=== PATIENT | female | born 1950 | race Caucasian/White ===

== ENCOUNTER 2023-02-27 11:44 | Inpatient (IN) ==
[2023-02-27] MEDS ORDERED: SODIUM CHLORIDE 0.9% 1000ML 1,000 ML IV SCH (12:30)
--- NOTE | 2023-02-27 12:44 | XRay Report ---
XR chest 1V portable CLINICAL HISTORY: Sepsis. COMPARISON STUDY: Chest radiograph March 04, 2021. FINDINGS: Lung volumes are normal. Lungs are clear. There is no pneumothorax or pleural effusion. Car diac size is stable. Mediastinal contours are normal. There is no evidence for pulmonary edema. IMPRESSION: No acute cardiopulmonary findings. ACT 112: Negative or not required by law. Electronically signed by: Cb Adams M.D. 02/27/2023 12:43 PM
[2023-02-27 12:47] LABS: Appearance Urine Turbid (Clear); Bacteria Urine Automated 4+ (Negative); Bilirubin Urine Negative (Negative); Blood Urine 3+ (Negative); Color Urine Yellow; Epithelial Cell Urine Auto >30 /lpf (0-5); Glucose Urine UA 3+ (Negative); Ketones Urine 1+ (Negative); Leukocyte Esterase Urine 2+ (Negative); Nitrite Urine Positive (Negative); Protein Urine 1+ (Negative); Specific Gravity Urine 1.025 (1.000-1.030); Urobilinogen Urine Negative (Negative); WBC Urine Automated >30 /hpf (0-5)
[2023-02-27 12:55] LABS: Hematocrit (blood only) 38.3 % (37.0-47.0); Hemoglobin 12.7 g/dl (12.0-16.0); Mean Corpuscular Hemoglobin 29.5 pg (25.0-34.0); Mean Corpuscular Hgb Conc 33.2 g/dL (32.0-36.0); Mean Corpuscular Volume 89.1 fL (80.0-100.0); Mean Platelet Volume 10.4 fL (9.4-12.4); Platelet Count 216 K/uL (130-400); RDW Coefficient of Variation 13.5 % (11.5-14.5); RDW Standard Deviation 43.5 fL (36.4-46.3); White Blood Count 11.93 K/ul (4.8-10.8)
[2023-02-27] MEDS ORDERED: SODIUM CHLORIDE 0.9% 500 ML IV ONE (13:04)
[2023-02-27] MEDS ORDERED: cefTRIAXone SODIUM 1,000 MG in DEXTROSE 5% AD-VAN 50 ML IV STA (13:04)
[2023-02-27 13:06] LABS: Albumin Level 3.9 gm/dl (3.4-5.0); BUN Creatinine Ratio 26.8 (10-20); Bilirubin,Total 1.7 mg/dl (0.2-1.0); Calcium 9.4 mg/dl (8.6-10.3); Creatinine Clr Calc Pharmacy 43.9 ml/min; Est GFR (African American) 66.7 ml/min; Est GFR (Non-African American) 57.5 ml/min; Globulin 3.9 gm/dl (2.5-4.0); Potassium 3.6 mmol/L (3.5-5.1); Total Protein 7.8 gm/dl (6.0-8.3)
[2023-02-27 13:12] LABS: Troponin I High Sensitivity 36.6 pg/ml (0-14)
[2023-02-27 13:15] LABS: Basophils # (auto) 0.04 K/uL (0-0.2); Basophils % (auto) 0.3 %; Eosinophils # (auto) 0.01 K/uL (0-0.50); Eosinophils % (auto) 0.1 %; Immature Granulocytes # (auto) 0.05 K/uL (0.01-0.20); Immature Granulocytes % (auto) 0.4 %; Lymphocytes # (auto) 0.57 K/uL (1.2-3.4); Lymphocytes % (auto) 4.8 %; Monocytes # (auto) 0.41 K/uL (0.11-0.59); Monocytes % (auto) 3.4 %; Neutrophils # (auto) 10.85 K/uL (1.40-6.50)
[2023-02-27 13:21] LABS: Partial Thromboplastin Ratio 0.9; Partial Thromboplastin Time 25.7 Seconds (21.0-31.0); Prothrombin Time 10.9 Seconds (9.0-12.0)
--- NOTE | 2023-02-27 13:24 | Electrocardiogram Report ---
Test Reason : Blood Pressure : / mmHG Vent. Rate : 095 BPM Atrial Rate : 375 BPM P-R Int : 000 ms QRS Dur : 062 ms QT Int : 330 ms P-R-T Axes : 000 036 070 degrees QTc Int : 414 ms Poor data quality, interpretation may be adversely affected Sinus rhythm Nonspecific ST and T wave abnormality Abnormal ECG When compared with ECG of 04-MAR-2021 15:40, T wave amplitude has decreased in Inferior leads T wave inversion now evident in Lateral leads Confirmed by Raymon Wheeler ([id number]) on 02/27/2023 1:24:18 PM Referred By: Confirmed By:Raymon Wheeler
--- NOTE | 2023-02-27 13:57 | CT Scan Report ---
HEAD CT NONCONTRAST CT DOSE: 638.56 mGycm HISTORY: Altered mental status. Dementia. Urinary tract infections. TECHNIQUE: Multiaxial CT images of the head were performed without the use of intravenous contrast. A utomated exposure control was utilized for this study. A dose lowering technique was utilized adheri ng to the principles of ALARA. Comparison: None. Findings: The paranasal sinuses and mastoid air cells are clear. The calvarium and skull base are int act. There is no mass, hematoma, midline shift, acute infarct. White matter hypodensity is nonspecifi c but suggestive of microvascular ischemic change. The ventricles and sulci demonstrate mild age-rela kenia involutional changes. Mild motion artifact at the skull base/posterior fossa. Impression: No acute intracranial abnormality. Atrophy and microvascular ischemic changes. ACT 112: Negative or not required by law. Electronically signed by: Brien Bajwa M.D. 02/27/2023 1:56 PM
--- NOTE | 2023-02-27 14:58 | History & Physical Report ---
Date of Service February 27, 2023 Assessment & Plan (1) Infectious encephalopathy: (2) UTI (urinary tract infection): (3) T2DM (type 2 diabetes mellitus): (4) HTN (hypertension): (5) HLD (hyperlipidemia): (6) Dementia with behavioral disturbance: (7) CKD (chronic kidney disease), stage III: Plan This is a 72-year-old female who has significant past medical history of T2DM, HTN, HLD, CKD stage III and dementia who presents to ED secondary to mental status change and responsiveness x2 days. Patient has picture of infectious metabolic encephalopathy likely in setting of UTI. At this time she technically does not meet criteria for sepsis Metabolic infectious encephalopathy UTI Admit to PCU, once mental status improved could downgrade IV Rocephin Await blood and urine cultures IV fluid NSS plus KCl We will keep n.p.o. for now until mentation improves Dementia with behavioral disturbance Following neurology Discussed case with patient's PCP Dr. Green Worsening mental status in the last 4 months and currently undergoing further work-up and likely [facility] psych Dr. Green recommends MRI brain when patient able to tolerate Recently trialed Seroquel as outpatient and did not tolerate due to restlessness, per PCP patient tends to get agitation and restlessness in afternoon High risk for delirium Elevated troponin likely demand ischema in setting of infection will trend trops, repeat ecg consider echo if significant trop elevation T2DM Controlled on outpatient regimen, last A1c 7.07 February 2023 Hold Jardiance and glipizide Hypertension Controlled as outpatient on lisinopril, metoprolol and hydrochlorothiazide We will hold for now given cognition, once improves recommend resumption of home meds CKD stage III Baseline creatinine 1.0-1.1 Avoid nephrotoxic agents, renal function at baseline Monitor Gross hematuria Per discussion with Dr. Green currently undergoing work-up as outpatient due to hematuria noted on UTI Patient was to have a bladder renal ultrasound today as outpatient, but got canceled secondary to hospitalization We will consider ultrasound once encephalopathy resolves DVT prophylaxis: will do SCDS for now due to possible gross hematuria per PCP Dispo: PCU for now, pt DNR/DNI but given UTI, high risk for delirium suspect pt will require significant nursing assistance, can down grade to med/surg when able DNR/DNI PCP: Lyubov Green, discussed with PCP regarding pt hospitalization A total of 75 minutes was spent with greater than 50% of that time personally viewing all current laboratory work and diagnostic imaging studies obtained in the ED. Additionally, I was able to view the patients past medication reconciliation and history with direct visualization in the patients chart. Included in the time above, a portion of that time was spent assessing the patient while discussing and collaborating with specialists, if necessary, and making medical decision making on treatment plan. All of the above was collaborated with []. Please see addendum for further details. History of Present Illness Chief Complaint: Worsened altered mental status/unresponsivness x 2 days. Primary Care Provider: Lyubov Green MD This is a 72-year-old female who has significant past medical history of T2DM, HTN, HLD, CKD stage III and dementia who presents to ED secondary to mental status change and responsiveness x2 days. Patient's is at bedside. ROS unobtainable from patient due to current cognitive status. states recently traveled back from [place] as they were there for 4 months. Typically they go 4 months of the year. While in [place] he noted that she been having a shuffling gait and difficulty walking. She also has been having increase in falls. She had 1 fall in [place] where she injured the left frontal aspect of her forehead. She had a CT head done at that time which was negative. She has since followed up with Dr. Green her primary care doctor in clinic as well as neurology. brought her to ED today due to unable to arouse patient and unable to get her out of bed. He states she has been like this the past 2 to 3 days but he was eventually able to arouse her and get her out of bed.In ED patient was hemodynamically stable although slightly tachycardic. Lab work consistent with mild leukocytosis at 11.93 K, BUN 26, creatinine 0.97, glucose 117, lactate 2.0, total bilirubin 1.7, troponin 36.6 and procalcitonin 6.38. Her urinalysis is consistent with infection. Also noted is +[address] was negative for any acute changes but did reveal atrophy and microvascular is chemic change. Chest x-ray negative for any acute abnormality. She did receive IV fluid and IV ceftriaxone. Allergies Allergy/AdvReac Type Severity Reaction Status Date / Time metformin Allergy Unknown Verified 02/27/23 14:11 quetiapine [From Seroquel] AdvReac Intermediate agitation/r Verified 02/27/23 14:11 estlessness Home Medications Medication Instructions Recorded Confirmed Type aspirin 81 mg tablet,delayed 81 mg PO DAILY 02/27/23 02/27/23 History release atorvastatin 20 mg tablet 20 mg PO DAILY 02/27/23 02/27/23 History calcium citrate 250 mg 1 tab PO TID 02/27/23 02/27/23 History calcium-vitamin D3 5 mcg (200 unit) tablet cholecalciferol (vitamin D3) 25 25 mcg PO DAILY 02/27/23 02/27/23 History mcg (1,000 unit) tablet empagliflozin 10 mg tablet 10 mg PO DAILY 02/27/23 02/27/23 History ferrous sulfate 325 mg (65 mg 325 mg PO DAILY 02/27/23 02/27/23 History iron) tablet (iron) glipizide 5 mg tablet, extended 5 mg PO BID 02/27/23 02/27/23 History release 24 hr hydrochlorothiazide 12.5 mg capsule 12.5 mg PO DAILY 02/27/23 02/27/23 History lisinopril 40 mg tablet 40 mg PO DAILY 02/27/23 02/27/23 History metoprolol succinate 25 mg 25 mg PO DAILY 02/27/23 02/27/23 History tablet,extended release 24 hr sertraline 25 mg tablet 50 mg PO DAILY 02/27/23 02/27/23 History Past Med/Surg History Medical History CKD (chronic kidney disease), stage III Dementia with behavioral disturbance HLD (hyperlipidemia) HTN (hypertension) T2DM (type 2 diabetes mellitus) Surgical History (Updated 02/27/23 @ 14:12 by Kristen Yusuf PA-C) Hx of section Family History (Updated 02/27/23 @ 14:12 by Kristen Yusuf PA-C) Other Diabetes Hypertension Social History (Updated 02/27/23 @ 14:12 by Kristen Yusuf PA-C) Smoking Status: Never smoker Hx Alcohol Use: No Hx Substance Use: No marital status: Current Living Situation: Spouse Review of Systems Review of Systems: Unobtainable due to cognitive status Physical Exam Physical Exam: Constitutional: WD/WN, Chronically ill-appearing, female,Minimally arouses to verbal stimuli, vitals as above, NAD Head: Normocephalic, + contusion to L frontal forehead Eyes: PERRL, conjunctivae normal, anicteric sclerae ENMT: external ear and nose normal, oropharynx normal Significantly dry membranes Neck: trachea midline, no thyromegaly normal visual inspection Respiratory: normal respiratory effort, lungs clear to auscultation, no wheeze, rales, rhonchi. Normal insp/exp effort, no accessory muscle use Cardiovascular: RRR, no murmur, no edema Vessels: no JVD or carotid bruit Chest: normal inspection of chest Abdomen: normal bowel sounds, soft, nontender, no hepatosplenomegaly Musculoskeletal: no cyanosis or clubbing, extremities motor strength 5/5 Skin: no rashes, warm and dry normal turgor Neurologic: PERRL, EOMI, accommodation nl, no face palsy, no dysarthria CN's II-XI intact bilaterally and moves all extremities Psychiatric: Not alert or arousable, does around to tactile and verbal stimuli, euthymic affect Lymphatic: no cervical or axillary lymphadenopathy : deferred Results & Data Results & Data Vital Signs (Past 12 Hours) Vital Signs Temp Pulse Pulse Resp BP BP Pulse Ox 02/27/23 14:41 87 20 141/74 H 98 02/27/23 13:14 81 16 150/72 H 99 02/27/23 13:05 80 02/27/23 13:53 82 20 149/90 H 95 02/27/23 12:22 96 02/27/23 12:15 36.8 C 98 H 20 152/104 H 96 O2 Del Method 02/27/23 14:41 Room Air 02/27/23 13:14 Room Air 02/27/23 13:05 02/27/23 13:53 Room Air 02/27/23 12:22 Room Air 02/27/23 12:15 Room Air Diagnostic Findings Chest X-Ray 02/27/23 12:10 XR chest 1V portable CLINICAL HISTORY: Sepsis. COMPARISON STUDY: Chest radiograph March 04, 2021. FINDINGS: Lung volumes are normal. Lungs are clear. There is no pneumothorax or pleural effusion. Cardiac size is stable. Mediastinal contours are normal. There is no evidence for pulmonary edema. IMPRESSION: No acute cardiopulmonary findings. ACT 112: Negative or not required by law. Electronically signed by: Cb Adams M.D. 02/27/2023 12:[address] 02/27/23 13:[address] DOSE: 638.56 mGycm HISTORY: Altered mental status. Dementia. Urinary tract infections. TECHNIQUE: Multiaxial CT images of the head were performed without the use of intravenous contrast. Automated exposure control was utilized for this study. A dose lowering technique was utilized adhering to the principles of ALARA. Comparison: None. Findings: The paranasal sinuses and mastoid air cells are clear. The calvarium and skull base are intact. There is no mass, hematoma, midline shift, acute infarct. White matter hypodensity is nonspecific but suggestive of microvascular ischemic change. The ventricles and sulci demonstrate mild age-related involutional changes. Mild motion artifact at the skull base/posterior fossa. Impression: No acute intracranial abnormality. Atrophy and microvascular ischemic changes. ACT 112: Negative or not required by law. Electronically signed by: Brien Bajwa M.D. 02/27/2023 1:56 PM Medications Administered Medication List Sodium Chloride (Nss 1000ml) 1,000 mls @ 125 mls/hr IV .Q8H YASHIRA Stop: 02/27/23 20:29 Last Admin: 02/27/23 12:44 Dose: 125 mls/hr Documented By: TW Discontinued Medications Sodium Chloride (Nss) 500 mls @ 999 mls/hr IV .Q31M ONE Stop: 02/27/23 13:34 Last Infusion: 02/27/23 14:02 Dose: 0 mls/hr Documented By: Admin: 02/27/23 13:19 Dose: 999 mls/hr Documented By: TW Ceftriaxone Sodium 1,000 mg/ (Dextrose) 50 mls @ 100 mls/hr IV NOW STA Stop: 02/27/23 13:33 Last Infusion: 02/27/23 14:39 Dose: 0 mls/hr Documented By: Admin: 02/27/23 13:54 Dose: 100 mls/hr Documented By: TW ECG Rate (beats per minute): 95 Rhythm: normal sinus Additional Comments: significant artifact, viewed by me COVID-19 Results Results COVID-19 Adm Lab Results: RBC 4.30 M/uL (4.20-5.40) 02/27/23 WBC 11.93 K/ul (4.8-10.8) H 02/27/23 Hgb 12.7 g/dl (12.0-16.0) 02/27/23 Hct 38.3 % (37.0-47.0) 02/27/23 Plt Count 216 K/uL (130-400) 02/27/23 Neutrophils (%) (Auto) 91.0 % 02/27/23 Lymphocytes (%) (Auto) 4.8 % 02/27/23 Monocytes # (Auto) 0.41 K/uL (0.11-0.59) 02/27/23 Eosinophils # (Auto) 0.01 K/uL (0-0.50) 02/27/23 Immature Granulocyte % (Auto) 0.4 % 02/27/23 Neutrophils # (Auto) 10.85 K/uL (1.40-6.50) H 02/27/23 Lymphocytes # (Auto) 0.57 K/uL (1.2-3.4) L 02/27/23 Monocytes # (Auto) 0.41 K/uL (0.11-0.59) 02/27/23 Eosinophils # (Auto) 0.01 K/uL (0-0.50) 02/27/23 Basophils # (Auto) 0.04 K/uL (0-0.2) 02/27/23 Immature Granulocyte # (Auto) 0.05 K/uL (0.01-0.20) 3 Na 137 mmol/L (136-145) 02/27/23 K 3.6 mmol/L (3.5-5.1) 02/27/23 Cl 101 mmol/L (98-107) 02/27/23 CO2 26 mmol/L (21-32) 02/27/23 Anion Gap 10 (3-11) 02/27/23 BUN 26 mg/dl (6-23) H 02/27/23 Creatinine 0.97 mg/dl (0.6-1.2) 02/27/23 BUN/Creatinine Ratio 26.8 (10-20) H 02/27/23 Glucose Level 117 mg/dl (70-99(Fasting)) H 02/27/23 Ca 9.4 mg/dl (8.6-10.3) 02/27/23 Total Bilirubin 1.7 mg/dl (0.2-1.0) H 02/27/23 AST/SGOT 21 U/L (13-39) 02/27/23 ALT/SGPT 13 U/L (7-52) 02/27/23 Alkaline Phosphatase 66 U/L (34-104) 02/27/23 Total Protein 7.8 gm/dl (6.0-8.3) 02/27/23 Albumin 3.9 gm/dl (3.4-5.0) 02/27/23 Globulin 3.9 gm/dl (2.5-4.0) 02/27/23 Albumin/Globulin Ratio 1.0 (0.9-2) 02/27/23 Procalcitonin 6.38 ng/ml (0-0.5) H 02/27/23 PTT 25.7 Seconds (21.0-31.0) 02/27/23 INR 1.0 (0.9-1.1) 02/27/23 SARS-CoV-2, RNA, NAAT NEGATIVE (NEGATIVE) 02/27/23 ABG pH 7.46 (7.35-7.45) H 02/27/23 ABG pCO2 34 mmHg (35-46) L 02/27/23 ABG pO2 69 mmHg (80-95) L 02/27/23 ABG HCO3 24 mmol/L (19-24) 02/27/23 ABG O2 Saturation 95.3 % (90-95) H 02/27/23 ABG Base Excess 0.8 mEq/L (-9-1.8) 02/27/23 Chest X-Ray 02/27/23 Code Status & VTE Plan Code Status DNR/DNI VTE Prophylaxis Plan VTE Prophylaxis will be ordered: Yes Supervising Physician Co-Signing Physician Notes Pt was seen and examined. Agreed with Kristen CHADWICK exam, assessment and plan. 72-year-old female who has significant past medical history of T2DM, HTN, HLD, CKD stage III and dementia who presents to ED secondary to mental status change and lethargy. History obtained from at bedside. Pt was recently travel back to the [facility] from [place]. As per , Pt has been having a shuffling gait and difficulty walking that led to fall. She had a fall while in [place] where she injured the left frontal aspect of her forehead. said for the last 2 days pt has been very lethargy and unable to get her out of bed. In the ED, Lab shown WBC at 11.93 K, BUN 26, creatinine 0.97, glucose 117, lactate 2.0, total bilirubin 1.7, troponin 36.6 and procalcitonin 6.38 and UA positive for Leukocytes, Nitrite and bacteria. Received IV fluid and IV Ceftriaxone in the ER. Will continue IV abx with Ceftriaxone for now. Will follow urine and blood cx that was collected in the ER. Consider to get head MRI once mental status improves. Will get an ABC to r/o any CO2 retention. Continue monitor closely. MD Carolyne
[2023-02-27 15:48] LABS: Base Excess ABG 0.8 mEq/L (-9-1.8); HCO3 ABG 24 mmol/L (19-24); Oxygen Saturation ABG 95.3 % (90-95); PCO2 ABG 34 mmHg (35-46); PO2 ABG 69 mmHg (80-95); pH ABG 7.46 (7.35-7.45)
[2023-02-27 15:51] LABS: Allen Test Pos (Pos)
[2023-02-27] MEDS ORDERED: POLYETHYLENE (MIRALAX) 17 GM PACK PO PRN (16:45)
[2023-02-27] MEDS ORDERED: DEXTROSE 50% 50 ML SYRINGE IV PRN (16:45)
[2023-02-27] MEDS ORDERED: GLUCOSE 40% GEL 15 GM TUBE PO PRN (16:45)
[2023-02-27] MEDS ORDERED: MAGNESIUM HYDROXIDE SUSP 30 ML UDC PO PRN (16:45)
[2023-02-27] MEDS ORDERED: INSULIN ASPART PER UNIT CHARGE SC SCH (16:45)
[2023-02-27] MEDS ORDERED: GLUCAGON FOR INJ 1 MG VIAL SQ PRN (16:45)
[2023-02-27] MEDS ORDERED: ONDANSETRON INJ 2 MG/ML 2 ML VIAL IV PRN (16:45)
[2023-02-27] MEDS ORDERED: ACETAMINOPHEN 325 MG TAB PO PRN (16:45)
[2023-02-27] MEDS ORDERED: GLUCOSE 10 TAB/TUBE PO PRN (16:45)
[2023-02-27] MEDS ORDERED: ALUMINUM/MAGNESIUM SUSP 30 ML UDC PO PRN (16:45)
[2023-02-27] MEDS ORDERED: CARBOHYDRATES FOR HYPOGLYCEMIA PO PRN (16:45)
[2023-02-27] MEDS: NSS + 20MEQ KCL 20 MEQ/1,000 ML BAG IV SCH (17:02)
[2023-02-27] MEDS: ADVANCED PROBIOTIC 1250 MG CAPSULE PO SCH (17:06)
[2023-02-27] MEDS ORDERED: Nursing to Pharmacy Communication SCH (17:15)
[2023-02-27] MEDS: INSULIN ASPART PER UNIT CHARGE SC SCH (18:10)
--- NOTE | 2023-02-27 20:26 | Emergency Department Note ---
Impression & Plan Encephalopathy due to infection, UTI (urinary tract infection), Dementia ED Provider Note CHIEF COMPLAINT: AMS HISTORY OF PRESENT ILLNESS: This 72 yo female patient with past medical history of advanced dementia, chronic kidney disease, hyperlipidemia, hypertension and type 2 diabetes presents to the emergency department via ambulance for altered mental status. Patient's states over the last 2 days she has become increasingly somnolent and incontinent of urine, which is new. He is her primary caregiver and states that she is normally ambulatory and although needs to be directed, will eat and converse. The patient has not gotten out of bed in the last 2 days. He denies any falls or head injuries. He denies any blood thinners. REVIEW OF SYSTEMS: Unable to obtain a full review of systems secondary to patient's mental status ALLERGIES: Metformin, Seroquel MEDICATIONS: see below PMH: Advanced dementia, chronic kidney disease, hyperlipidemia, hypertension, type 2 diabetes SOCIAL HISTORY: see below DDx: Infection, dehydration, metabolic abnormality, hypo/hyperglycemia, electrolyte disturbance, anemia, hypoxia, cardiac etiology, intracerebral event, toxicologic, neurologic, as well as other pathologies. PHYSICAL EXAM: Vital signs reviewed. General: Elderly, somewhat ill-appearing 72-year-old female, in no significant distress. HEENT: No scleral icterus, PERRLA, neck supple. Resolving hematoma to the forehead with ecchymosis. Cardiovascular: Regular rate and rhythm, no extra sounds. Pulmonary: Clear to auscultation bilaterally, normal work of breathing. Abdomen: Soft, nontender, nondistended, positive bowel sounds. Musculoskeletal: Atraumatic, no peripheral edema. Neurologic: Somnolent and responsive to painful stimuli. Skin: Warm, dry, no rash EMERGENCY DEPARTMENT COURSE/MDM: This patient was evaluated and appeared to be ill but in no distress. Patient's is at the bedside and provides the history. Patient was placed on the clinical research monitor and noted to be in a sinus rhythm. She was hydrated with normal saline solution. Blood cultures and urine were obtained. The patient appears to have a UTI on UA. She has a mild leuko cytosis. Lactate is 2.0. Troponin is slightly elevated at 37.8. The patient was given 1 g of IV ceftriaxone. Mental status did not change significantly during her stay in the ED. CT imaging of the head was performed and reveals no evidence of acute abnormality. Patient's case was discussed with her PCP, Dr. Lyubov Green as well as her . I did explain the findings. I do feel the patient requires inpatient hospitalizations due to the likely bacteremia from UTI and change in mental status. Case was discussed with the hospitalist service who will evaluate the patient for further management. MONITORING: An order for cardiac monitoring was placed and the patient is noted to be in a sinus rhythm at 80 beats per minute. RADIOLOGY: Imaging of the head to my review reveals no evidence of acute intracranial abnormality, otherwise defer to radiology. Chest x-ray to my interpretation reveals no evidence of focal lung consolidation or failure, otherwise defer to radiology. EKG: To my interpretation reveals a poor quality baseline for interpretation. Nonspecific ST and T wave abnormality. QTc is 414. DISPOSITION: Past Med/Surg History Medical History CKD (chronic kidney disease), stage III Dementia with behavioral disturbance HLD (hyperlipidemia) HTN (hypertension) T2DM (type 2 diabetes mellitus) Surgical History (Updated 02/27/23 @ 14:12 by Kristen Yusuf PA-C) Hx of section Family History (Updated 02/27/23 @ 14:12 by Kristen Yusuf PA-C) Other Diabetes Hypertension Social History (Updated 02/27/23 @ 14:12 by Kristen Yusuf PA-C) Smoking Status: Never smoker Hx Alcohol Use: No Hx Substance Use: No Preferred Language: Wallisian Communication Ability: Impaired Communication Ability Comment: moans only at this time Instrumentation Tech Required: No Beliefs That Will Affect Care: None marital status: Current Living Situation: Spouse Other Information That Helps Us Care for You: No Feels Safe at Home: Declines to Answer Allergies Allergies Allergy/AdvReac Type Severity Reaction Status Date / Time metformin Allergy Unknown Verified 02/27/23 14:11 quetiapine [From Seroquel] AdvReac Intermediate agitation/r Verified 02/27/23 14:11 estlessness Home Meds Home Medications Medication Instructions Recorded Confirmed aspirin 81 mg tablet,delayed 81 mg PO DAILY 02/27/23 02/27/23 release atorvastatin 20 mg tablet 20 mg PO DAILY 02/27/23 02/27/23 calcium citrate 250 mg 1 tab PO TID 02/27/23 02/27/23 calcium-vitamin D3 5 mcg (200 unit) tablet cholecalciferol (vitamin D3) 25 25 mcg PO DAILY 02/27/23 02/27/23 mcg (1,000 unit) tablet empagliflozin 10 mg tablet 10 mg PO DAILY 02/27/23 02/27/23 ferrous sulfate 325 mg (65 mg 325 mg PO DAILY 02/27/23 02/27/23 iron) tablet (iron) glipizide 5 mg tablet, extended 5 mg PO BID 02/27/23 02/27/23 release 24 hr hydrochlorothiazide 12.5 mg capsule 12.5 mg PO DAILY 02/27/23 02/27/23 lisinopril 40 mg tablet 40 mg PO DAILY 02/27/23 02/27/23 metoprolol succinate 25 mg 25 mg PO DAILY 02/27/23 02/27/23 tablet,extended release 24 hr sertraline 25 mg tablet 50 mg PO DAILY 02/27/23 02/27/23 Results & Data (ED) Vital Signs Vital Signs - 24 hr 02/27/23 15:27 02/27/23 16:31 02/27/23 17:20 Temperature 36.8 C Temperature Source Oral Pulse Rate Pulse Rate [Left] 89 107 H Pulse Rhythm [Left] Regular Pulse Strength [Left] Normal Respiratory Rate 20 34 H Respiratory Effort / Characteristics Non-Labored Spontaneous Respiratory Depth Normal Respiratory Pattern Blood Pressure [Right Arm] 163/90 H 127/106 H Blood Pressure Mean [Right Arm] 114 113 Blood Pressure Position [Right Arm] Pulse Oximetry 97 92 Oxygen Delivery Method Room Air Room Air Room Air EWS Level of Consciousness - Last Result EWS Temperature - Last Result EWS Respiratory Rate - Last Result EWS Oxygen Saturation - Last Result EWS Oxygen in Use - Last Result EWS Lactate - Last Result EWS Score EWS Clinical Risk 02/27/23 17:20 02/27/23 16:45 02/27/23 17:59 Temperature Temperature Source Oral Oral Pulse Rate Pulse Rate [Left] Pulse Rhythm [Left] Pulse Strength [Left] Respiratory Rate Respiratory Effort / Characteristics Respiratory Depth Respiratory Pattern Blood Pressure [Right Arm] 145/63 H Blood Pressure Mean [Right Arm] 90 Blood Pressure Position [Right Arm] Pulse Oximetry Oxygen Delivery Method Room Air EWS Level of Consciousness - Last Result EWS Temperature - Last Result EWS Respiratory Rate - Last Result EWS Oxygen Saturation - Last Result EWS Oxygen in Use - Last Result EWS Lactate - Last Result EWS Score EWS Clinical Risk 02/27/23 19:00 02/27/23 19:00 02/27/23 23:09 Temperature Temperature Source Pulse Rate 92 H Pulse Rate [Left] 104 H Pulse Rhythm [Left] Pulse Strength [Left] Respiratory Rate 24 Respiratory Effort / Characteristics Respiratory Depth Respiratory Pattern Blood Pressure [Right Arm] 143/65 H Blood Pressure Mean [Right Arm] 91 Blood Pressure Position [Right Arm] Lying Pulse Oximetry 97 Oxygen Delivery Method Room Air EWS Level of Consciousness - Last Result Moans to Touch EWS Temperature - Last Result 36.8 EWS Respiratory Rate - Last Result 34 EWS Oxygen Saturation - Last Result 92 EWS Oxygen in Use - Last Result No EWS Lactate - Last Result 2.0 EWS Score 10 EWS Clinical Risk Critical - Activate Emergency Response 02/27/23 23:00 02/28/23 03:00 02/28/23 08:00 Temperature 37.1 C 37.2 C 36.8 C Temperature Source Oral Oral Oral Pulse Rate Pulse Rate [Left] 79 90 95 H Pulse Rhythm [Left] Regular Pulse Strength [Left] Normal Respiratory Rate 20 24 22 Respiratory Effort / Characteristics Non-Labored Spontaneous Respiratory Depth Normal Respiratory Pattern Regular Blood Pressure [Right Arm] 119/67 118/65 91/56 L Blood Pressure Mean [Right Arm] 84 82 67 Blood Pressure Position [Right Arm] Lying Lying Pulse Oximetry 98 97 97 Oxygen Delivery Method Room Air Room Air Room Air EWS Level of Consciousness - Last Result EWS Temperature - Last Result EWS Respiratory Rate - Last Result EWS Oxygen Saturation - Last Result EWS Oxygen in Use - Last Result EWS Lactate - Last Result EWS Score EWS Clinical Risk 02/28/23 08:00 02/28/23 11:51 02/28/23 11:52 Temperature 36.7 C Temperature Source Oral Pulse Rate 97 H Pulse Rate [Left] 74 Pulse Rhythm [Left] Pulse Strength [Left] Respiratory Rate 18 Respiratory Effort / Characteristics Respiratory Depth Normal Respiratory Pattern Blood Pressure [Right Arm] 138/68 Blood Pressure Mean [Right Arm] 91 Blood Pressure Position [Right Arm] Sitting Pulse Oximetry 99 Oxygen Delivery Method Room Air EWS Level of Consciousness - Last Result Opens Eyes to Touch EWS Temperature - Last Result 36.7 EWS Respiratory Rate - Last Result 18 EWS Oxygen Saturation - Last Result 99 EWS Oxygen in Use - Last Result No EWS Lactate - Last Result 2.0 EWS Score 4 EWS Clinical Risk Moderate Risk Home Medications Current Medication List: was personally reviewed by ar Laboratory Data Attestation: I reviewed the patient's lab results. 02/27/23 12:31 02/27/23 12:29 Lab Results 02/27/23 02/27/23 02/27/23 Range/Units 10:20 12:17 12:29 WBC (4.8-10.8) K/ul RBC (4.20-5.40) M/uL Hgb (12.0-16.0) g/dl Hct (37.0-47.0) % MCV (80.0-100.0) fL MCH (25.0-34.0) pg MCHC (32.0-36.0) g/dL RDW Std Deviation (36.4-46.3) fL RDW Coeff of [place] (11.5-14.5) % Plt Count (130-400) K/uL MPV (9.4-12.4) fL Immature Gran % (Auto) % Neut % (Auto) % Lymph % (Auto) % [place] % (Auto) % Eos % (Auto) % Baso % (Auto) % Neut # (Auto) (1.40-6.50) K/uL Lymph # (Auto) (1.2-3.4) K/uL [place] # (Auto) (0.11-0.59) K/uL Eos # (Auto) (0-0.50) K/uL Baso # (Auto) (0-0.2) K/uL Immature Gran # (Auto) (0.01-0.20) K/uL Echinocytes PT (9.0-12.0) Seconds INR (0.9-1.1) APTT (21.0-31.0) Seconds PTT Ratio ABG pH (7.35-7.45) ABG pCO2 (35-46) mmHg ABG pO2 (80-95) mmHg ABG HCO3 (19-24) mmol/L ABG O2 Saturation (90-95) % ABG Base Excess (-9-1.8) mEq/L [place] Test (Pos) Oxygen Given Sodium (136-145) mmol/L Potassium (3.5-5.1) mmol/L Chloride (98-107) mmol/L Carbon Dioxide (21-32) mmol/L Anion Gap (3-11) BUN (6-23) mg/dl Creatinine (0.6-1.2) mg/dl Est Cr Clr Drug Dosing ml/min Est GFR ( Amer) ml/min Est GFR (Non-Af Amer) ml/min BUN/Creatinine Ratio (10-20) Glucose (70-99(Fasting)) mg/dl POC Glucose (70-99) mg/dl Lactate 2.0 (0.4-2.0) mmol/L Calcium (8.6-10.3) mg/dl Magnesium (1.7-2.4) mg/dl Total Bilirubin (0.2-1.0) mg/dl AST (13-39) U/L ALT (7-52) U/L Alkaline Phosphatase (34-104) U/L Troponin I High Sens (0-14) pg/ml Total Protein (6.0-8.3) gm/dl Albumin (3.4-5.0) gm/dl Globulin (2.5-4.0) gm/dl Albumin/Globulin Ratio (0.9-2) Procalcitonin (0-0.5) ng/ml TSH (0.300-4.500) uIu/ml Urine Color Yellow Urine Appearance Turbid A (Clear) Urine pH 6.0 (4.5-7.5) Ur Specific [place] 1.025 (1.000-1.030) Urine Protein 1+ H (Negative) Urine Glucose (UA) 3+ H (Negative) Urine Ketones 1+ H (Negative) Urine Blood 3+ H (Negative) Urine Nitrite Positive A (Negative) Urine Bilirubin Negative (Negative) Urine Urobilinogen Negative (Negative) Ur Leukocyte Esterase 2+ H (Negative) Urine WBC (Auto) >30 H (0-5) /hpf Urine RBC (Auto) 5-10 H (0-4) /hpf U Hyaline Cast (Auto) 1-5 (0-5) /lpf U Epithel Cells (Auto) >30 H (0-5) /lpf Urine Bacteria (Auto) 4+ H (Negative) Urine Yeast Not Reportable SARS-CoV-2 (PCR) Enterobacterales (PCR) DETECTED A (NotDetected) E. coli (PCR) DETECTED A (NotDetected) SARS-CoV-2, RNA, NAAT (NEGATIVE) mcr-1 Colistin Res Gene PCR Not Detected (NotDetected) blaIMP Car res Gene PCR Not Detected (NotDetected) KPC-Carbap Res Gene PCR Not Detected (NotDetected) blaNDM Car Res Gene PCR Not Detected (NotDetected) OXA-48 Carbapenem Resis Gene (PCR) Not Detected (NotDetected) blaVIM Car Res Gene PCR Not Detected (NotDetected) CTX-M Gene Resistance (PCR) DETECTED A* (NotDetected) Bld Cult ID Panel PCR See PCR Comment (NotDetected) 02/27/23 02/27/23 02/27/23 Range/Units 12:29 12:29 12:29 WBC (4.8-10.8) K/ul RBC (4.20-5.40) M/uL Hgb (12.0-16.0) g/dl Hct (37.0-47.0) % MCV (80.0-100.0) fL MCH (25.0-34.0) pg MCHC (32.0-36.0) g/dL RDW Std Deviation (36.4-46.3) fL RDW Coeff of [place] (11.5-14.5) % Plt Count (130-400) K/uL MPV (9.4-12.4) fL Immature Gran % (Auto) % Neut % (Auto) % Lymph % (Auto) % [place] % (Auto) % Eos % (Auto) % Baso % (Auto) % Neut # (Auto) (1.40-6.50) K/uL Lymph # (Auto) (1.2-3.4) K/uL [place] # (Auto) (0.11-0.59) K/uL Eos # (Auto) (0-0.50) K/uL Baso # (Auto) (0-0.2) K/uL Immature Gran # (Auto) (0.01-0.20) K/uL Echinocytes PT 10.9 (9.0-12.0) Seconds INR 1.0 (0.9-1.1) APTT 25.7 (21.0-31.0) Seconds PTT Ratio 0.9 ABG pH (7.35-7.45) ABG pCO2 (35-46) mmHg ABG pO2 (80-95) mmHg ABG HCO3 (19-24) mmol/L ABG O2 Saturation (90-95) % ABG Base Excess (-9-1.8) mEq/L [place] Test (Pos) Oxygen Given Sodium 137 (136-145) mmol/L Potassium 3.6 (3.5-5.1) mmol/L Chloride 101 (98-107) mmol/L Carbon Dioxide 26 (21-32) mmol/L Anion Gap 10 (3-11) BUN 26 H (6-23) mg/dl Creatinine 0.97 (0.6-1.2) mg/dl Est Cr Clr Drug Dosing 43.9 ml/min Est GFR ( Amer) 66.7 ml/min Est GFR (Non-Af Amer) 57.5 ml/min BUN/Creatinine Ratio 26.8 H (10-20) Glucose 117 H (70-99(Fasting)) mg/dl POC Glucose (70-99) mg/dl Lactate (0.4-2.0) mmol/L Calcium 9.4 (8.6-10.3) mg/dl Magnesium 2.0 (1.7-2.4) mg/dl Total Bilirubin 1.7 H (0.2-1.0) mg/dl AST 21 (13-39) U/L ALT 13 (7-52) U/L Alkaline Phosphatase 66 (34-104) U/L Troponin I High Sens 36.6 H (0-14) pg/ml Total Protein 7.8 (6.0-8.3) gm/dl Albumin 3.9 (3.4-5.0) gm/dl Globulin 3.9 (2.5-4.0) gm/dl Albumin/Globulin Ratio 1.0 (0.9-2) Procalcitonin 6.38 H (0-0.5) ng/ml TSH (0.300-4.500) uIu/ml Urine Color Urine Appearance (Clear) Urine pH (4.5-7.5) Ur Specific [place] (1.000-1.030) Urine Protein (Negative) Urine Glucose (UA) (Negative) Urine Ketones (Negative) Urine Blood (Negative) Urine Nitrite (Negative) Urine Bilirubin (Negative) Urine Urobilinogen (Negative) Ur Leukocyte Esterase (Negative) Urine WBC (Auto) (0-5) /hpf Urine RBC (Auto) (0-4) /hpf U Hyaline Cast (Auto) (0-5) /lpf U Epithel Cells (Auto) (0-5) /lpf Urine Bacteria (Auto) (Negative) Urine Yeast SARS-CoV-2 (PCR) Enterobacterales (PCR) (NotDetected) E. coli (PCR) (NotDetected) SARS-CoV-2, RNA, NAAT (NEGATIVE) mcr-1 Colistin Res Gene PCR (NotDetected) blaIMP Car res Gene PCR (NotDetected) KPC-Carbap Res Gene PCR (NotDetected) blaNDM Car Res Gene PCR (NotDetected) OXA-48 Carbapenem Resis Gene (PCR) (NotDetected) blaVIM Car Res Gene PCR (NotDetected) CTX-M Gene Resistance (PCR) (NotDetected) Bld Cult ID Panel PCR (NotDetected) 02/27/23 02/27/23 02/27/23 Range/Units 12:29 12:31 12:42 WBC 11.93 H (4.8-10.8) K/ul RBC 4.30 (4.20-5.40) M/uL Hgb 12.7 (12.0-16.0) g/dl Hct 38.3 (37.0-47.0) % MCV 89.1 (80.0-100.0) fL MCH 29.5 (25.0-34.0) pg MCHC 33.2 (32.0-36.0) g/dL RDW Std Deviation 43.5 (36.4-46.3) fL RDW Coeff of [place] 13.5 (11.5-14.5) % Plt Count 216 (130-400) K/uL MPV 10.4 (9.4-12.4) fL Immature Gran % (Auto) 0.4 % Neut % (Auto) 91.0 % Lymph % (Auto) 4.8 % [place] % (Auto) 3.4 % Eos % (Auto) 0.1 % Baso % (Auto) 0.3 % Neut # (Auto) 10.85 H (1.40-6.50) K/uL Lymph # (Auto) 0.57 L (1.2-3.4) K/uL [place] # (Auto) 0.41 (0.11-0.59) K/uL Eos # (Auto) 0.01 (0-0.50) K/uL Baso # (Auto) 0.04 (0-0.2) K/uL Immature Gran # (Auto) 0.05 (0.01-0.20) K/uL Echinocytes PT (9.0-12.0) Seconds INR (0.9-1.1) APTT (21.0-31.0) Seconds PTT Ratio ABG pH (7.35-7.45) ABG pCO2 (35-46) mmHg ABG pO2 (80-95) mmHg ABG HCO3 (19-24) mmol/L ABG O2 Saturation (90-95) % ABG Base Excess (-9-1.8) mEq/L [place] Test (Pos) Oxygen Given Sodium (136-145) mmol/L Potassium (3.5-5.1) mmol/L Chloride (98-107) mmol/L Carbon Dioxide (21-32) mmol/L Anion Gap (3-11) BUN (6-23) mg/dl Creatinine (0.6-1.2) mg/dl Est Cr Clr Drug Dosing ml/min Est GFR ( Amer) ml/min Est GFR (Non-Af Amer) ml/min BUN/Creatinine Ratio (10-20) Glucose (70-99(Fasting)) mg/dl POC Glucose (70-99) mg/dl Lactate (0.4-2.0) mmol/L Calcium (8.6-10.3) mg/dl Magnesium (1.7-2.4) mg/dl Total Bilirubin (0.2-1.0) mg/dl AST (13-39) U/L ALT (7-52) U/L Alkaline Phosphatase (34-104) U/L Troponin I High Sens (0-14) pg/ml Total Protein (6.0-8.3) gm/dl Albumin (3.4-5.0) gm/dl Globulin (2.5-4.0) gm/dl Albumin/Globulin Ratio (0.9-2) Procalcitonin (0-0.5) ng/ml TSH 1.997 (0.300-4.500) uIu/ml Urine Color Urine Appearance (Clear) Urine pH (4.5-7.5) Ur Specific [place] (1.000-1.030) Urine Protein (Negative) Urine Glucose (UA) (Negative) Urine Ketones (Negative) Urine Blood (Negative) Urine Nitrite (Negative) Urine Bilirubin (Negative) Urine Urobilinogen (Negative) Ur Leukocyte Esterase (Negative) Urine WBC (Auto) (0-5) /hpf Urine RBC (Auto) (0-4) /hpf U Hyaline Cast (Auto) (0-5) /lpf U Epithel Cells (Auto) (0-5) /lpf Urine Bacteria (Auto) (Negative) Urine Yeast SARS-CoV-2 (PCR) Cancelled Enterobacterales (PCR) (NotDetected) E. coli (PCR) (NotDetected) SARS-CoV-2, RNA, NAAT (NEGATIVE) mcr-1 [place] Res Gene PCR (NotDetected) blaIMP Car res Gene PCR (NotDetected) KPC-Carbap Res Gene PCR (NotDetected) blaNDM Car Res Gene PCR (NotDetected) OXA-48 Carbapenem Resis Gene (PCR) (NotDetected) blaVIM Car Res Gene PCR (NotDetected) CTX-M Gene Resistance (PCR) (NotDetected) Bld Cult ID Panel PCR (NotDetected) 02/27/23 02/27/23 02/27/23 Range/Units 13:00 15:42 15:42 WBC (4.8-10.8) K/ul RBC (4.20-5.40) M/uL Hgb (12.0-16.0) g/dl Hct (37.0-47.0) % MCV (80.0-100.0) fL MCH (25.0-34.0) pg MCHC (32.0-36.0) g/dL RDW Std Deviation (36.4-46.3) fL RDW Coeff of [place] (11.5-14.5) % Plt Count (130-400) K/uL MPV (9.4-12.4) fL Immature Gran % (Auto) % Neut % (Auto) % Lymph % (Auto) % [place] % (Auto) % Eos % (Auto) % Baso % (Auto) % Neut # (Auto) (1.40-6.50) K/uL Lymph # (Auto) (1.2-3.4) K/uL [place] # (Auto) (0.11-0.59) K/uL Eos # (Auto) (0-0.50) K/uL Baso # (Auto) (0-0.2) K/uL Immature Gran # (Auto) (0.01-0.20) K/uL Echinocytes PT (9.0-12.0) Seconds INR (0.9-1.1) APTT (21.0-31.0) Seconds PTT Ratio ABG pH 7.46 H (7.35-7.45) ABG pCO2 34 L (35-46) mmHg ABG pO2 69 L (80-95) mmHg ABG HCO3 24 (19-24) mmol/L ABG O2 Saturation 95.3 H (90-95) % ABG Base Excess 0.8 (-9-1.8) mEq/L [place] Test Pos (Pos) Oxygen Given ROOM AIR Sodium (136-145) mmol/L Potassium (3.5-5.1) mmol/L Chloride (98-107) mmol/L Carbon Dioxide (21-32) mmol/L Anion Gap (3-11) BUN (6-23) mg/dl Creatinine (0.6-1.2) mg/dl Est Cr Clr Drug Dosing ml/min Est GFR ( Amer) ml/min Est GFR (Non-Af Amer) ml/min BUN/Creatinine Ratio (10-20) Glucose (70-99(Fasting)) mg/dl POC Glucose (70-99) mg/dl Lactate (0.4-2.0) mmol/L Calcium (8.6-10.3) mg/dl Magnesium (1.7-2.4) mg/dl Total Bilirubin (0.2-1.0) mg/dl AST (13-39) U/L ALT (7-52) U/L Alkaline Phosphatase (34-104) U/L Troponin I High Sens 36.0 H (0-14) pg/ml Total Protein (6.0-8.3) gm/dl Albumin (3.4-5.0) gm/dl Globulin (2.5-4.0) gm/dl Albumin/Globulin Ratio (0.9-2) Procalcitonin (0-0.5) ng/ml TSH (0.300-4.500) uIu/ml Urine Color Urine Appearance (Clear) Urine pH (4.5-7.5) Ur Specific [place] (1.000-1.030) Urine Protein (Negative) Urine Glucose (UA) (Negative) Urine Ketones (Negative) Urine Blood (Negative) Urine Nitrite (Negative) Urine Bilirubin (Negative) Urine Urobilinogen (Negative) Ur Leukocyte Esterase (Negative) Urine WBC (Auto) (0-5) /hpf Urine RBC (Auto) (0-4) /hpf U Hyaline Cast (Auto) (0-5) /lpf U Epithel Cells (Auto) (0-5) /lpf Urine Bacteria (Auto) (Negative) Urine Yeast SARS-CoV-2 (PCR) Enterobacterales (PCR) (NotDetected) E. coli (PCR) (NotDetected) SARS-CoV-2, RNA, NAAT NEGATIVE (NEGATIVE) mcr-1 [place] Res Gene PCR (NotDetected) blaIMP Car res Gene PCR (NotDetected) KPC-Carbap Res Gene PCR (NotDetected) blaNDM Car Res Gene PCR (NotDetected) OXA-48 Carbapenem Resis Gene (PCR) (NotDetected) blaVIM Car Res Gene PCR (NotDetected) CTX-M Gene Resistance (PCR) (NotDetected) Bld Cult ID Panel PCR (NotDetected) 02/27/23 02/27/23 02/27/23 Range/Units 18:01 20:49 21:20 WBC (4.8-10.8) K/ul RBC (4.20-5.40) M/uL Hgb (12.0-16.0) g/dl Hct (37.0-47.0) % MCV (80.0-100.0) fL MCH (25.0-34.0) pg MCHC (32.0-36.0) g/dL RDW Std Deviation (36.4-46.3) fL RDW Coeff of [place] (11.5-14.5) % Plt Count (130-400) K/uL MPV (9.4-12.4) fL Immature Gran % (Auto) % Neut % (Auto) % Lymph % (Auto) % [place] % (Auto) % Eos % (Auto) % Baso % (Auto) % Neut # (Auto) (1.40-6.50) K/uL Lymph # (Auto) (1.2-3.4) K/uL [place] # (Auto) (0.11-0.59) K/uL Eos # (Auto) (0-0.50) K/uL Baso # (Auto) (0-0.2) K/uL Immature Gran # (Auto) (0.01-0.20) K/uL Echinocytes PT (9.0-12.0) Seconds INR (0.9-1.1) APTT (21.0-31.0) Seconds PTT Ratio ABG pH (7.35-7.45) ABG pCO2 (35-46) mmHg ABG pO2 (80-95) mmHg ABG HCO3 (19-24) mmol/L ABG O2 Saturation (90-95) % ABG Base Excess (-9-1.8) mEq/L [place] Test (Pos) Oxygen Given Sodium (136-145) mmol/L Potassium (3.5-5.1) mmol/L Chloride (98-107) mmol/L Carbon Dioxide (21-32) mmol/L Anion Gap (3-11) BUN (6-23) mg/dl Creatinine (0.6-1.2) mg/dl Est Cr Clr Drug Dosing ml/min Est GFR ( Amer) ml/min Est GFR (Non-Af Amer) ml/min BUN/Creatinine Ratio (10-20) Glucose (70-99(Fasting)) mg/dl POC Glucose 104 H 99 (70-99) mg/dl Lactate (0.4-2.0) mmol/L Calcium (8.6-10.3) mg/dl Magnesium (1.7-2.4) mg/dl Total Bilirubin (0.2-1.0) mg/dl AST (13-39) U/L ALT (7-52) U/L Alkaline Phosphatase (34-104) U/L Troponin I High Sens 37.8 H (0-14) pg/ml Total Protein (6.0-8.3) gm/dl Albumin (3.4-5.0) gm/dl Globulin (2.5-4.0) gm/dl Albumin/Globulin Ratio (0.9-2) Procalcitonin (0-0.5) ng/ml TSH (0.300-4.500) uIu/ml Urine Color Urine Appearance (Clear) Urine pH (4.5-7.5) Ur Specific [place] (1.000-1.030) Urine Protein (Negative) Urine Glucose (UA) (Negative) Urine Ketones (Negative) Urine Blood (Negative) Urine Nitrite (Negative) Urine Bilirubin (Negative) Urine Urobilinogen (Negative) Ur Leukocyte Esterase (Negative) Urine WBC (Auto) (0-5) /hpf Urine RBC (Auto) (0-4) /hpf U Hyaline Cast (Auto) (0-5) /lpf U Epithel Cells (Auto) (0-5) /lpf Urine Bacteria (Auto) (Negative) Urine Yeast SARS-CoV-2 (PCR) Enterobacterales (PCR) (NotDetected) E. coli (PCR) (NotDetected) SARS-CoV-2, RNA, NAAT (NEGATIVE) mcr-1 [place] Res Gene PCR (NotDetected) blaIMP Car res Gene PCR (NotDetected) KPC-Carbap Res Gene PCR (NotDetected) blaNDM Car Res Gene PCR (NotDetected) OXA-48 Carbapenem Resis Gene (PCR) (NotDetected) blaVIM Car Res Gene PCR (NotDetected) CTX-M Gene Resistance (PCR) (NotDetected) Bld Cult ID Panel PCR (NotDetected) 02/28/23 02/28/23 02/28/23 Range/Units 03:41 03:41 06:29 WBC 14.83 H (4.8-10.8) K/ul RBC 4.40 (4.20-5.40) M/uL Hgb 13.0 (12.0-16.0) g/dl Hct 40.0 (37.0-47.0) % MCV 90.9 (80.0-100.0) fL MCH 29.5 (25.0-34.0) pg MCHC 32.5 (32.0-36.0) g/dL RDW Std Deviation 46.5 H (36.4-46.3) fL RDW Coeff of [place] 13.8 (11.5-14.5) % Plt Count 184 (130-400) K/uL MPV 10.7 (9.4-12.4) fL Immature Gran % (Auto) 0.6 % Neut % (Auto) 90.0 % Lymph % (Auto) 5.7 % [place] % (Auto) 3.3 % Eos % (Auto) 0.1 % Baso % (Auto) 0.3 % Neut # (Auto) 13.33 H (1.40-6.50) K/uL Lymph # (Auto) 0.85 L (1.2-3.4) K/uL [place] # (Auto) 0.49 (0.11-0.59) K/uL Eos # (Auto) 0.02 (0-0.50) K/uL Baso # (Auto) 0.05 (0-0.2) K/uL Immature Gran # (Auto) 0.09 (0.01-0.20) K/uL Echinocytes 1+ PT (9.0-12.0) Seconds INR (0.9-1.1) APTT (21.0-31.0) Seconds PTT Ratio ABG pH (7.35-7.45) ABG pCO2 (35-46) mmHg ABG pO2 (80-95) mmHg ABG HCO3 (19-24) mmol/L ABG O2 Saturation (90-95) % ABG Base Excess (-9-1.8) mEq/L [place] Test (Pos) Oxygen Given Sodium 142 (136-145) mmol/L Potassium 4.2 (3.5-5.1) mmol/L Chloride 109 H (98-107) mmol/L Carbon Dioxide 23 (21-32) mmol/L Anion Gap 10 (3-11) BUN 29 H (6-23) mg/dl Creatinine 1.02 (0.6-1.2) mg/dl Est Cr Clr Drug Dosing 41.8 ml/min Est GFR ( Amer) 62.8 ml/min Est GFR (Non-Af Amer) 54.1 ml/min BUN/Creatinine Ratio 28.4 H (10-20) Glucose 84 (70-99(Fasting)) mg/dl POC Glucose 74 (70-99) mg/dl Lactate (0.4-2.0) mmol/L Calcium 8.8 (8.6-10.3) mg/dl Magnesium 2.1 (1.7-2.4) mg/dl Total Bilirubin 0.9 D (0.2-1.0) mg/dl AST 24 (13-39) U/L ALT 13 (7-52) U/L Alkaline Phosphatase 59 (34-104) U/L Troponin I High Sens 61.6 H* D (0-14) pg/ml Total Protein 7.2 (6.0-8.3) gm/dl Albumin 3.5 (3.4-5.0) gm/dl Globulin 3.7 (2.5-4.0) gm/dl Albumin/Globulin Ratio 0.9 (0.9-2) Procalcitonin (0-0.5) ng/ml TSH (0.300-4.500) uIu/ml Urine Color Urine Appearance (Clear) Urine pH (4.5-7.5) Ur Specific [place] (1.000-1.030) Urine Protein (Negative) Urine Glucose (UA) (Negative) Urine Ketones (Negative) Urine Blood (Negative) Urine Nitrite (Negative) Urine Bilirubin (Negative) Urine Urobilinogen (Negative) Ur Leukocyte Esterase (Negative) Urine WBC (Auto) (0-5) /hpf Urine RBC (Auto) (0-4) /hpf U Hyaline Cast (Auto) (0-5) /lpf U Epithel Cells (Auto) (0-5) /lpf Urine Bacteria (Auto) (Negative) Urine Yeast SARS-CoV-2 (PCR) Enterobacterales (PCR) (NotDetected) E. coli (PCR) (NotDetected) SARS-CoV-2, RNA, NAAT (NEGATIVE) mcr-1 Colistin Res Gene PCR (NotDetected) blaIMP Car res Gene PCR (NotDetected) KPC-Carbap Res Gene PCR (NotDetected) blaNDM Car Res Gene PCR (NotDetected) OXA-48 Carbapenem Resis Gene (PCR) (NotDetected) blaVIM Car Res Gene PCR (NotDetected) CTX-M Gene Resistance (PCR) (NotDetected) Bld Cult ID Panel PCR (NotDetected) 02/28/23 02/28/23 Range/Units 08:51 11:34 WBC (4.8-10.8) K/ul RBC (4.20-5.40) M/uL Hgb (12.0-16.0) g/dl Hct (37.0-47.0) % MCV (80.0-100.0) fL MCH (25.0-34.0) pg MCHC (32.0-36.0) g/dL RDW Std Deviation (36.4-46.3) fL RDW Coeff of [place] (11.5-14.5) % Plt Count (130-400) K/uL MPV (9.4-12.4) fL Immature Gran % (Auto) % Neut % (Auto) % Lymph % (Auto) % [place] % (Auto) % Eos % (Auto) % Baso % (Auto) % Neut # (Auto) (1.40-6.50) K/uL Lymph # (Auto) (1.2-3.4) K/uL [place] # (Auto) (0.11-0.59) K/uL Eos # (Auto) (0-0.50) K/uL Baso # (Auto) (0-0.2) K/uL Immature Gran # (Auto) (0.01-0.20) K/uL Echinocytes PT (9.0-12.0) Seconds INR (0.9-1.1) APTT (21.0-31.0) Seconds PTT Ratio ABG pH (7.35-7.45) ABG pCO2 (35-46) mmHg ABG pO2 (80-95) mmHg ABG HCO3 (19-24) mmol/L ABG O2 Saturation (90-95) % ABG Base Excess (-9-1.8) mEq/L [place] Test (Pos) Oxygen Given Sodium (136-145) mmol/L Potassium (3.5-5.1) mmol/L Chloride (98-107) mmol/L Carbon Dioxide (21-32) mmol/L Anion Gap (3-11) BUN (6-23) mg/dl Creatinine (0.6-1.2) mg/dl Est Cr Clr Drug Dosing ml/min Est GFR ( Amer) ml/min Est GFR (Non-Af Amer) ml/min BUN/Creatinine Ratio (10-20) Glucose (70-99(Fasting)) mg/dl POC Glucose 76 (70-99) mg/dl Lactate (0.4-2.0) mmol/L Calcium (8.6-10.3) mg/dl Magnesium (1.7-2.4) mg/dl Total Bilirubin (0.2-1.0) mg/dl AST (13-39) U/L ALT (7-52) U/L Alkaline Phosphatase (34-104) U/L Troponin I High Sens 61.7 H* (0-14) pg/ml Total Protein (6.0-8.3) gm/dl Albumin (3.4-5.0) gm/dl Globulin (2.5-4.0) gm/dl Albumin/Globulin Ratio (0.9-2) Procalcitonin (0-0.5) ng/ml TSH (0.300-4.500) uIu/ml Urine Color Urine Appearance (Clear) Urine pH (4.5-7.5) Ur Specific [place] (1.000-1.030) Urine Protein (Negative) Urine Glucose (UA) (Negative) Urine Ketones (Negative) Urine Blood (Negative) Urine Nitrite (Negative) Urine Bilirubin (Negative) Urine Urobilinogen (Negative) Ur Leukocyte Esterase (Negative) Urine WBC (Auto) (0-5) /hpf Urine RBC (Auto) (0-4) /hpf U Hyaline Cast (Auto) (0-5) /lpf U Epithel Cells (Auto) (0-5) /lpf Urine Bacteria (Auto) (Negative) Urine Yeast SARS-CoV-2 (PCR) Enterobacterales (PCR) (NotDetected) E. coli (PCR) (NotDetected) SARS-CoV-2, RNA, NAAT (NEGATIVE) mcr-1 Colistin Res Gene PCR (NotDetected) blaIMP Car res Gene PCR (NotDetected) KPC-Carbap Res Gene PCR (NotDetected) blaNDM Car Res Gene PCR (NotDetected) OXA-48 Carbapenem Resis Gene (PCR) (NotDetected) blaVIM Car Res Gene PCR (NotDetected) CTX-M Gene Resistance (PCR) (NotDetected) Bld Cult ID Panel PCR (NotDetected) Administered Medications Potassium Chloride/Sodium Chloride (Normal Saline W/20 Meq Kcl) 20 meq in 1,000 mls @ 75 mls/hr IV .[id number] YASHIRA; Protocol Stop: 03/29/23 16:59 Last Admin: 02/28/23 06:20 Dose: 75 mls/hr Documented By: Infusion: 02/28/23 06:20 Dose: 75 mls/hr Documented By: Admin: 02/27/23 17:02 Dose: 75 mls/hr Documented By: YVROSE Ertapenem 1,000 mg/ Syringe 10 mls @ 2 mls/min IV Q24H YASHIRA Stop: 03/14/23 10:29 Last Admin: 02/28/23 11:10 Dose: 2 mls/min Documented By: YVROSE Insulin Glargine (Lantus Per Unit Charge) 0 - 6 units SQ BID YASHIRA Stop: 03/29/23 20:59 Last Admin: 02/28/23 09:38 Dose: Not Given Documented By: Admin: 02/27/23 21:33 Dose: Not Given Documented By: KIKI Lactobacillus Acidophilus (Advanced Probiotic 1250 Mg Capsule) 2 cap PO DAILY [facility] Stop: 03/29/23 16:44 Last Admin: 02/28/23 09:38 Dose: Not Given Documented By: Admin: 02/27/23 17:06 Dose: Not Given Documented By: YVROSE Discontinued Medications Sodium Chloride (Nss 1000ml) 1,000 mls @ 125 mls/hr IV .Q8H [facility] Stop: 02/27/23 20:29 Last Infusion: 02/27/23 17:15 Dose: 0 mls/hr Documented By: Admin: 02/27/23 12:44 Dose: 125 mls/hr Documented By: KRUPA Sodium Chloride (Nss) 500 mls @ 999 mls/hr IV .Q31M ONE Stop: 02/27/23 13:34 Last Infusion: 02/27/23 14:02 Dose: 0 mls/hr Documented By: Admin: 02/27/23 13:19 Dose: 999 mls/hr Documented By: KRUPA Ceftriaxone Sodium 1,000 mg/ (Dextrose) 50 mls @ 100 mls/hr IV NOW STA Stop: 02/27/23 13:33 Last Infusion: 02/27/23 14:39 Dose: 0 mls/hr Documented By: Admin: 02/27/23 13:54 Dose: 100 mls/hr Documented By: KRUPA Ceftriaxone Sodium 1,000 mg/ (Dextrose) 50 mls @ 100 mls/hr IV Q24H YASHIRA; Prot ocol Stop: 03/05/23 08:59 Last Infusion: 02/28/23 08:46 Dose: 0 mls/hr Documented By: Admin: 02/28/23 08:16 Dose: 100 mls/hr Documented By: YVROSE Insulin Aspart (Insulin Aspart Per Unit Charge) 0 units SC ACHS YASHIRA Stop: 03/29/23 16:44 Last Admin: 02/27/23 17:19 Dose: Not Given Documented By: YVROSE Co-signed By: [facility] Insulin Aspart (Insulin Aspart Per Unit Charge) 0 units SC Q6 YASHIRA Stop: 03/29/23 16:44 Last Admin: 02/28/23 12:26 Dose: Not Given Documented By: Admin: 02/28/23 06:21 Dose: Not Given Documented By: Admin: 02/28/23 02:16 Dose: Not Given Documented By: Admin: 02/27/23 18:10 Dose: Not Given Documented By: YVROSE Co-signed By: Imaging Data Radiologist's Impression: Chest X-Ray 02/27/23 12:10 XR chest 1V portable CLINICAL HISTORY: Sepsis. COMPARISON STUDY: Chest radiograph March 04, 2021. FINDINGS: Lung volumes are normal. Lungs are clear. There is no pneumothorax or pleural effusion. Cardiac size is stable. Mediastinal contours are normal. There is no evidence for pulmonary edema. IMPRESSION: No acute cardiopulmonary findings. ACT 112: Negative or not required by law. Electronically signed by: Cb Adams M.D. 02/27/2023 12:[address] 02/27/23 13:[address] DOSE: 638.56 mGycm HISTORY: Altered mental status. Dementia. Urinary tract infections. TECHNIQUE: Multiaxial CT images of the head were performed without the use of intravenous contrast. Automated exposure control was utilized for this study. A dose lowering technique was utilized adhering to the principles of ALARA. Comparison: None. Findings: The paranasal sinuses and mastoid air cells are clear. The calvarium and skull base are intact. There is no mass, hematoma, midline shift, acute infarct. White matter hypodensity is nonspecific but suggestive of microvascular ischemic change. The ventricles and sulci demonstrate mild age-related involutional changes. Mild motion artifact at the skull base/posterior fossa. Impression: No acute intracranial abnormality. Atrophy and microvascular ischemic changes. ACT 112: Negative or not required by law. Electronically signed by: Brien Bajwa M.D. 02/27/2023 1:56 PM Discharge Plan Visit Data Chief Complaint: Altered Mental Status Stated Complaint: AMS, WEAKNESS, ED Provider: Radhika Wagoner Discharge Problem: Encephalopathy due to infection, UTI (urinary tract infection), Dementia Patient Disposition: Admitted As Inpatient Discharge Instructions Interventions: ED Discharge Assessment Last Done: 02/27/23 16:31
[2023-02-27] MEDS: LANTUS PER UNIT CHARGE SQ SCH (21:33)
[2023-02-28] MEDS: INSULIN ASPART PER UNIT CHARGE SC SCH ×5 (02:16→20:53)
[2023-02-28 04:29] LABS: Albumin Globulin Ratio 0.9 (0.9-2); Albumin Level 3.5 gm/dl (3.4-5.0); BUN Creatinine Ratio 28.4 (10-20); Bilirubin,Total 0.9 mg/dl (0.2-1.0); Calcium 8.8 mg/dl (8.6-10.3); Creatinine Clr Calc Pharmacy 41.8 ml/min; Est GFR (African American) 62.8 ml/min; Est GFR (Non-African American) 54.1 ml/min; Globulin 3.7 gm/dl (2.5-4.0); Magnesium 2.1 mg/dl (1.7-2.4); Potassium 4.2 mmol/L (3.5-5.1); Total Protein 7.2 gm/dl (6.0-8.3); Troponin I High Sensitivity 61.6 pg/ml (0-14)
[2023-02-28 04:38] LABS: Mean Corpuscular Hemoglobin 29.5 pg (25.0-34.0); Mean Corpuscular Hgb Conc 32.5 g/dL (32.0-36.0); Mean Corpuscular Volume 90.9 fL (80.0-100.0); Mean Platelet Volume 10.7 fL (9.4-12.4); Platelet Count 184 K/uL (130-400); RDW Coefficient of Variation 13.8 % (11.5-14.5); RDW Standard Deviation 46.5 fL (36.4-46.3); White Blood Count 14.83 K/ul (4.8-10.8)
[2023-02-28 04:59] LABS: Basophils # (auto) 0.05 K/uL (0-0.2); Basophils % (auto) 0.3 %; Echinocytes 1+; Eosinophils # (auto) 0.02 K/uL (0-0.50); Eosinophils % (auto) 0.1 %; Immature Granulocytes # (auto) 0.09 K/uL (0.01-0.20); Immature Granulocytes % (auto) 0.6 %; Lymphocytes # (auto) 0.85 K/uL (1.2-3.4); Lymphocytes % (auto) 5.7 %; Monocytes # (auto) 0.49 K/uL (0.11-0.59); Monocytes % (auto) 3.3 %; Neutrophils # (auto) 13.33 K/uL (1.40-6.50)
[2023-02-28 05:32] LABS: A calco-baum cmplx NotReported Not Detected (NotDetected); Bact fragilis Not Reported Not Detected (NotDetected); C auris Not Reported Not Detected (NotDetected); CTX-M Resistant Gene DETECTED (NotDetected); Calbicans Not Reported Not Detected (NotDetected); Candida glabrata Not Reported Not Detected (NotDetected); Candida krusei Not Reported Not Detected (NotDetected); Cneoformans/gatti Not Reported Not Detected (NotDetected); Cparapsilosis Not Reported Not Detected (NotDetected); Ctropicalis Not Reported Not Detected (NotDetected); E cloacae compx Not Reported Not Detected (NotDetected); Efaecalis Not Reported Not Detected (NotDetected); Efaecium Not Reported Not Detected (NotDetected); Enterobacterales DETECTED (NotDetected); Enterobacterales Not Reported DETECTED (NotDetected); Escherichia coli Not Reported DETECTED (NotDetected); H influenzae Not Reported Not Detected (NotDetected); IMP Resistant Gene Not Detected (NotDetected); K aerogenes Not Reported Not Detected (NotDetected); KPC Resistant Gene Not Detected (NotDetected); Koxytoca Not Reported Not Detected (NotDetected); Kpneumoniae grp Not Reported Not Detected (NotDetected); Lmonocyt Not Reported Not Detected (NotDetected); N meningitidis Not Reported Not Detected (NotDetected); NDM Resistant Gene Not Detected (NotDetected); OXA 48 Like Resistant Gene Not Detected (NotDetected); P aeruginosa Not Reported Not Detected (NotDetected); Proteus spp Not Reported Not Detected (NotDetected); Salmonella spp Not Reported Not Detected (NotDetected); Smarcescens Not Reported Not Detected (NotDetected); Staph lugdunensis Not Reported Not Detected (NotDetected); Staph spp. Not Reported Not Detected (NotDetected); Staphaureus Not Reported Not Detected (NotDetected); Staphepi Not Reported Not Detected (NotDetected); Stenmaltophilia Not Reported Not Detected (NotDetected); Strep agal(GrpB) Not Reported Not Detected (NotDetected); Strep pneum Not Reported Not Detected (NotDetected); Strep pyog (GrpA) Not Reported Not Detected (NotDetected); Strep spp Not Reported Not Detected (NotDetected); VIM Resistant Gene Not Detected (NotDetected); mcr-1 Colistin Resistant Gene Not Detected (NotDetected)
[2023-02-28] MEDS: NSS + 20MEQ KCL 20 MEQ/1,000 ML BAG IV SCH ×2 (06:20→20:49)
[2023-02-28] MEDS ORDERED: cefTRIAXone SODIUM 1,000 MG in DEXTROSE 5% AD-VAN 50 ML IV SCH (09:00)
[2023-02-28] MEDS: LANTUS PER UNIT CHARGE SQ SCH ×2 (09:38→20:52)
[2023-02-28] MEDS: ADVANCED PROBIOTIC 1250 MG CAPSULE PO SCH (09:38)
[2023-02-28] MEDS: ERTAPENEM SODIUM 1,000 MG in SYRINGE 0 ML IV SCH (11:10)
[2023-02-28] MEDS ORDERED: Nursing to Pharmacy Communication SCH (11:45)
--- NOTE | 2023-02-28 13:17 | Electrocardiogram Report ---
Test Reason : Blood Pressure : / mmHG Vent. Rate : 095 BPM Atrial Rate : 095 BPM P-R Int : 146 ms QRS Dur : 066 ms QT Int : 350 ms P-R-T Axes : 043 041 061 degrees QTc Int : 439 ms Normal sinus rhythm Nonspecific T wave abnormality Abnormal ECG When compared with ECG of 27-FEB-2023 12:40, T wave inversion no longer evident in Lateral leads Confirmed by Raymon Wheeler ([id number]) on 02/28/2023 1:17:26 PM Referred By: REFERRED SELF Confirmed By:Raymon Wheeler
--- NOTE | 2023-02-28 15:56 | Hospitalist Progress Note ---
Date of Service February 28, 2023 Assessment & Plan (1) Infectious encephalopathy: (2) UTI (urinary tract infection): (3) T2DM (type 2 diabetes mellitus): (4) HTN (hypertension): (5) HLD (hyperlipidemia): (6) Dementia with behavioral disturbance: (7) CKD (chronic kidney disease), stage III: Plan This is a 72-year-old female who has significant past medical history of T2DM, HTN, HLD, CKD stage III and dementia who presents to ED secondary to mental status change and responsiveness x2 days. Patient has picture of infectious metabolic encephalopathy likely in setting of UTI. At this time she technically does not meet criteria for sepsis Metabolic infectious encephalopathy UTI Noted to be semiconscious for the last 2 days at home Urine culture came back positive for ESBL and blood culture came back positive for the same Started with IV Rocephin and changed this morning to ertapenem IV fluid NSS plus KCl Alert and awake though pleasantly confused Clears has been started and will advance as tolerated Discussed with the PT and OT evaluation Dementia with behavioral disturbance Following neurology Discussed case with patient's PCP Dr. Green Worsening mental status in the last 4 months and currently undergoing further work-up and likely [facility] psych Dr. Green recommends MRI brain when patient able to tolerate Recently trialed Seroquel as outpatient and did not tolerate due to restlessness, per PCP patient tends to get agitation and restlessness in afternoon Remains confused and has history of dementia as above Elevated troponin likely demand ischema in setting of infection will trend trops, repeat ecg consider echo if significant trop elevation-serial troponins are unremarkable for any ACS No cardiac symptoms and awaiting echo as ordered T2DM Controlled on outpatient regimen, last A1c 7.07 February 2023 Hold Jardiance and glipizide Has been on sliding scale insulin coverage Hypertension Controlled as outpatient on lisinopril, metoprolol and hydrochlorothiazide We will hold for now given cognition, once improves recommend resumption of home meds Blood pressure remains stable CKD stage III Baseline creatinine 1.0-1.1 Avoid nephrotoxic agents, renal function at baseline Monitor Gross hematuria Per discussion with Dr. Green currently undergoing work-up as outpatient due to hematuria noted on UTI Patient was to have a bladder renal ultrasound today as outpatient, but got canceled secondary to hospitalization We will consider ultrasound once encephalopathy resolves Will monitor DVT prophylaxis: will do SCDS for now due to possible gross hematuria per PCP Dispo: PCU for now, pt DNR/DNI but given UTI, high risk for delirium suspect pt will require significant nursing assistance, can down grade to med/surg when able DNR/DNI PCP: Lyubov Green, discussed with PCP regarding pt hospitalization Admission and Anticipated Discharge Date Admission Date: February 28, 2023 Subjective 02/28/2023 The patient was seen and examined in telemetry unit She has been semiresponsive at home for the last 2 days Was admitted yesterday with change in mental status noted to have ESBL bacteremia Has been feeling a little better since admission Review of Systems Review of Systems: Unobtainable due to cognitive status Physical Exam Physical Exam: Lying in bed with dehydration and very dry mouth to speak Constitutional: + ill appearing and average body habitus Eyes: PERRL, conjunctivae normal, anicteric sclerae ENMT: external ear and nose normal, oropharynx normal Neck: trachea midline, no thyromegaly Respiratory: no respiratory distress Auscultation: lungs clear to auscultation bilaterally Cardiovascular: Rate/Rhythm: regular rate and regular rhythm; not tachycardic Heart Sounds: normal S1 and normal S2; no murmur Extremities: no edema Gastrointestinal (Abdomen): Inspection/Auscultation: normal bowel sounds; abdomen not distended Percussion/Palpation: abdomen soft; abdomen nontender Musculoskeletal: No acute arthritis involving any of the joint Neurologic: .Alert and awake. Totally confused. Dysarthria due to dry mouth and tongue. Generally weak and moves all extremities Lymphatic: no cervical or axillary lymphadenopathy Results & Data Results & Data Vital Signs (Past 12 Hours) Vital Signs Temp Pulse Pulse Resp BP Pulse Ox O2 Del Method 02/28/23 11:51 36.7 C 74 18 138/68 99 Room Air 02/28/23 08:00 97 H 02/28/23 08:00 36.8 C 95 H 22 91/56 L 97 Room Air Laboratory Results Short CBC 02/28/23 Range/Units 03:41 WBC 14.83 H (4.8-10.8) K/ul Hgb 13.0 (12.0-16.0) g/dl Hct 40.0 (37.0-47.0) % Plt Count 184 (130-400) K/uL BMP 02/28/23 03:41 Sodium 142 Potassium 4.2 Chloride 109 H Carbon Dioxide 23 BUN 29 H Creatinine 1.02 Glucose 84 Calcium 8.8 Liver Function 02/28/23 Range/Units 03:41 Total Bilirubin 0.9 D (0.2-1.0) mg/dl AST 24 (13-39) U/L ALT 13 (7-52) U/L Alkaline Phosphatase 59 (34-104) U/L Albumin 3.5 (3.4-5.0) gm/dl Medications Administered Current Inpatient Medications Acetaminophen (Acetaminophen 325 Mg Tab) 650 mg PO Q4H PRN PRN Reason: pain/fever Stop: 03/29/23 16:44 Al Hydrox/Mg Hydrox/Simethicone (Aluminum/Magnesium Susp 30 Ml Udc) 30 ml PO Q6H PRN PRN Reason: Dyspepsia Stop: 03/29/23 16:44 Dextrose (Dextrose 50% 50 Ml Syringe) 25 - 50 ml IV UD PRN; Protocol PRN Reason: Hypoglycemia Protocol Stop: 03/29/23 16:44 Glucagon (Glucagon For Inj 1 Mg Vial) 1 mg SQ UD PRN; Protocol PRN Reason: Hypoglycemia Protocol Stop: 03/29/23 16:44 Glucose (Glucose 10 Tab/Tube) 4 - 8 tab PO UD PRN; Protocol PRN Reason: Hypoglycemia Treatment Stop: 03/29/23 16:44 Glucose (Glucose 40% Gel 15 Gm Tube) 15 - 30 gm PO UD PRN; Protocol PRN Reason: Hypoglycemia Protocol Stop: 03/29/23 16:44 Potassium Chloride/Sodium Chloride (Normal Saline W/20 Meq Kcl) 20 meq in 1,000 mls @ 75 mls/hr IV .[id number] [facility]; Protocol Stop: 03/29/23 16:59 Last Admin: 02/28/23 06:20 Dose: 75 mls/hr Ertapenem 1,000 mg/ Syringe 10 mls @ 2 mls/min IV Q24H [facility] Stop: 03/14/23 10:29 Last Admin: 02/28/23 11:10 Dose: 2 mls/min Insulin Aspart (Insulin Aspart Per Unit Charge) 0 units SC ACHS [facility] Stop: 03/29/23 17:59 Insulin Glargine (Lantus Per Unit Charge) 0 - 6 units SQ BID YASHIRA Stop: 03/29/23 20:59 Last Admin: 02/28/23 09:38 Dose: Not Given Lactobacillus Acidophilus (Advanced Probiotic 1250 Mg Capsule) 2 cap PO DAILY Y[facility]IRA Stop: 03/29/23 16:44 Last Admin: 02/28/23 09:38 Dose: Not Given Magnesium Hydroxide (Magnesium Hydroxide Susp 30 Ml Udc) 30 ml PO Q6H PRN PRN Reason: Constipation Stop: 03/29/23 16:44 Miscellaneous (Carbohydrates For Hypoglycemia ) 15 - 30 gm PO UD PRN PRN Reason: Hypoglycemia Protocol Stop: 03/29/23 16:44 Ondansetron HCl (Ondansetron Inj 2 Mg/Ml 2 Ml Vial) 4 mg IV Q6H PRN PRN Reason: Nausea Stop: 03/29/23 16:44 Polyethylene Glycol (Polyethylene (Miralax) 17 Gm Pack) 17 gm PO DAILY PRN PRN Reason: Constipation Stop: 03/29/23 16:44 (2) UTI (urinary tract infection) Hematuria presence: without hematuria Urinary tract infection type: acute cystitis Qualified Code(s): N30.00 - Acute cystitis without hematuria
[2023-03-01 06:44] LABS: Basophils # (auto) 0.04 K/uL (0-0.2); Basophils % (auto) 0.4 %; Eosinophils # (auto) 0.05 K/uL (0-0.50); Eosinophils % (auto) 0.4 %; Hematocrit (blood only) 40.5 % (37.0-47.0); Immature Granulocytes # (auto) 0.05 K/uL (0.01-0.20); Immature Granulocytes % (auto) 0.4 %; Lymphocytes # (auto) 0.63 K/uL (1.2-3.4); Lymphocytes % (auto) 5.6 %; Mean Corpuscular Hemoglobin 29.1 pg (25.0-34.0); Mean Corpuscular Hgb Conc 32.1 g/dL (32.0-36.0); Mean Corpuscular Volume 90.8 fL (80.0-100.0); Mean Platelet Volume 10.6 fL (9.4-12.4); Monocytes # (auto) 0.74 K/uL (0.11-0.59); Monocytes % (auto) 6.6 %; Neutrophils # (auto) 9.72 K/uL (1.40-6.50); Neutrophils % (auto) 86.6 %; Platelet Count 174 K/uL (130-400); RDW Coefficient of Variation 14.2 % (11.5-14.5); RDW Standard Deviation 47.3 fL (36.4-46.3); Red Blood Count 4.46 M/uL (4.20-5.40); White Blood Count 11.23 K/ul (4.8-10.8)
[2023-03-01] MEDS: LANTUS PER UNIT CHARGE SQ SCH ×2 (08:08→20:54)
[2023-03-01] MEDS: INSULIN ASPART PER UNIT CHARGE SC SCH ×5 (08:08→20:53)
[2023-03-01 08:47] LABS: BUN Creatinine Ratio 32.6 (10-20); Calcium 8.9 mg/dl (8.6-10.3); Creatinine Clr Calc Pharmacy 46.3 ml/min; Est GFR (African American) 71.1 ml/min; Est GFR (Non-African American) 61.3 ml/min; Magnesium 2.4 mg/dl (1.7-2.4); Phosphorus 2.4 mg/dl (2.5-4.9); Potassium 4.7 mmol/L (3.5-5.1)
[2023-03-01] MEDS: NSS + 20MEQ KCL 20 MEQ/1,000 ML BAG IV SCH ×2 (10:31→23:51)
[2023-03-01] MEDS: ADVANCED PROBIOTIC 1250 MG CAPSULE PO SCH (10:32)
[2023-03-01] MEDS: ERTAPENEM SODIUM 1,000 MG in SYRINGE 0 ML IV SCH (10:32)
--- NOTE | 2023-03-01 17:54 | Hospitalist Progress Note ---
Date of Service March 01, 2023 Assessment & Plan (1) Infectious encephalopathy: (2) UTI (urinary tract infection): (3) T2DM (type 2 diabetes mellitus): (4) HTN (hypertension): (5) HLD (hyperlipidemia): (6) Dementia with behavioral disturbance: (7) CKD (chronic kidney disease), stage III: Plan This is a 72-year-old female who has significant past medical history of T2DM, HTN, HLD, CKD stage III and dementia who presents to ED secondary to mental status change and responsiveness x2 days. Patient has picture of infectious metabolic encephalopathy likely in setting of UTI. At this time she technically does not meet criteria for sepsis Metabolic infectious encephalopathy UTI Noted to be semiconscious for the last 2 days at home Urine culture came back positive for ESBL and blood culture came back positive for the same Started with IV Rocephin and changed this morning to ertapenem IV fluid NSS plus KCl Alert and awake though pleasantly confused Clears has been started and will advance as tolerated Discussed with the PT and OT evaluation-Will need rehab placement White count is improving We will continue antibiotic intravenously for about 14 days Dementia with behavioral disturbance Following neurology Discussed case with patient's PCP Dr. Green Worsening mental status in the last 4 months and currently undergoing further work-up and likely [facility] psych Dr. Green recommends MRI brain when patient able to tolerate Recently trialed Seroquel as outpatient and did not tolerate due to restlessness, per PCP patient tends to get agitation and restlessness in afternoon Remains confused and has history of dementia as above Has history of dementia which has been worsening for the last 2 years Elevated troponin likely demand ischema in setting of infection will trend trops, repeat ecg consider echo if significant trop elevation-serial troponins are unremarkable for any ACS No cardiac symptoms and awaiting echo as ordered T2DM Controlled on outpatient regimen, last A1c 7.07 February 2023 Hold Jardiance and glipizide Has been on sliding scale insulin coverage Hypertension Controlled as outpatient on lisinopril, metoprolol and hydrochlorothiazide We will hold for now given cognition, once improves recommend resumption of home meds Blood pressure remains stable CKD stage III Baseline creatinine 1.0-1.1 Avoid nephrotoxic agents, renal function at baseline Monitor Gross hematuria Per discussion with Dr. Green currently undergoing work-up as outpatient due to hematuria noted on UTI Patient was to have a bladder renal ultrasound today as outpatient, but got canceled secondary to hospitalization We will consider ultrasound once encephalopathy resolves Will monitor DVT prophylaxis: will do SCDS for now due to possible gross hematuria per PCP Dispo: PCU for now, pt DNR/DNI but given UTI, high risk for delirium suspect pt will require significant nursing assistance, can down grade to med/surg when able DNR/DNI PCP: Lyubov Green, discussed with PCP regarding pt hospitalization Admission and Anticipated Discharge Date Admission Date: February 28, 2023 Subjective 02/28/2023 The patient was seen and examined in telemetry unit She has been semiresponsive at home for the last 2 days Was admitted yesterday with change in mental status noted to have ESBL bacteremia Has been feeling a little better since admission 03/01/2023 The patient is seen and examined in telemetry unit in presence of the She remains hemodynamically stable but very confused Does not have any other distress Review of Systems 2 Review of Systems: Unobtainable due to cognitive status Physical Exam Physical Exam: Lying in bed with dehydration and very dry mouth to speak Constitutional: + ill appearing and average body habitus Eyes: PERRL, conjunctivae normal, anicteric sclerae ENMT: external ear and nose normal, oropharynx normal Neck: trachea midline, no thyromegaly Respiratory: no respiratory distress Auscultation: lungs clear to auscultation bilaterally Cardiovascular: Rate/Rhythm: regular rate and regular rhythm; not tachycardic Heart Sounds: normal S1 and normal S2; no murmur Extremities: no edema Gastrointestinal (Abdomen): Inspection/Auscultation: normal bowel sounds; abdomen not distended Percussion/Palpation: abdomen soft; abdomen nontender Musculoskeletal: No acute arthritis involving any joint Neurologic: Alert and awake. Very confused. Generally weak Lymphatic: no cervical or axillary lymphadenopathy Results & Data Results & Data Vital Signs (Past 12 Hours) Vital Signs Temp Pulse Pulse Resp BP Pulse Ox O2 Del Method 03/01/23 15:53 37.3 C 94 H 20 152/95 H 97 Room Air 03/01/23 11:38 94 H 03/01/23 11:23 37.8 C H 79 20 147/74 H 99 Room Air 03/01/23 07:46 37.4 C 86 20 147/79 H 98 Room Air Laboratory Results Short CBC 03/01/23 Range/Units 06:10 WBC 11.23 H (4.8-10.8) K/ul Hgb 13.0 (12.0-16.0) g/dl Hct 40.5 (37.0-47.0) % Plt Count 174 (130-400) K/uL BMP 03/01/23 06:10 Sodium 144 Potassium 4.7 Chloride 116 H Carbon Dioxide 21 BUN 30 H Creatinine 0.92 Glucose 110 H Calcium 8.9 Medications Administered Current Inpatient Medications Acetaminophen (Acetaminophen 325 Mg Tab) 650 mg PO Q4H PRN PRN Reason: pain/fever Stop: 03/29/23 16:44 Al Hydrox/Mg Hydrox/Simethicone (Aluminum/Magnesium Susp 30 Ml Udc) 30 ml PO Q6H PRN PRN Reason: Dyspepsia Stop: 03/29/23 16:44 Dextrose (Dextrose 50% 50 Ml Syringe) 25 - 50 ml IV UD PRN; Protocol PRN Reason: Hypoglycemia Protocol Stop: 03/29/23 16:44 Glucagon (Glucagon For Inj 1 Mg Vial) 1 mg SQ UD PRN; Protocol PRN Reason: Hypoglycemia Protocol Stop: 03/29/23 16:44 Glucose (Glucose 10 Tab/Tube) 4 - 8 tab PO UD PRN; Protocol PRN Reason: Hypoglycemia Treatment Stop: 03/29/23 16:44 Glucose (Glucose 40% Gel 15 Gm Tube) 15 - 30 gm PO UD PRN; Protocol PRN Reason: Hypoglycemia Protocol Stop: 03/29/23 16:44 Heparin Sodium (Porcine) (Heparin Sod 5,000 Unit/0.5 Ml Vial) 5,000 units SQ Q12 YASHIRA Stop: 03/31/23 20:59 Potassium Chloride/Sodium Chloride (Normal Saline W/20 Meq Kcl) 20 meq in 1,000 mls @ 75 mls/hr IV .[id number] YASHIRA; Protocol Stop: 03/29/23 16:59 Last Admin: 03/01/23 10:31 Dose: 75 mls/hr Ertapenem 1,000 mg/ Syringe 10 mls @ 2 mls/min IV Q24H [facility] Stop: 03/14/23 10:29 Last Admin: 03/01/23 10:32 Dose: 2 mls/min Insulin Aspart (Insulin Aspart Per Unit Charge) 0 units SC ACHS [facility] Stop: 03/29/23 17:59 Last Admin: 03/01/23 17:32 Dose: 3 units Insulin Glargine (Lantus Per Unit Charge) 0 - 6 units SQ BID YASHIRA Stop: 03/29/23 20:59 Last Admin: 03/01/23 08:08 Dose: Not Given Lactobacillus Acidophilus (Advanced Probiotic 1250 Mg Capsule) 2 cap PO DAILY [facility] Stop: 03/29/23 16:44 Last Admin: 03/01/23 10:32 Dose: 2 cap Magnesium Hydroxide (Magnesium Hydroxide Susp 30 Ml Udc) 30 ml PO Q6H PRN PRN Reason: Constipation Stop: 03/29/23 16:44 Miscellaneous (Carbohydrates For Hypoglycemia ) 15 - 30 gm PO UD PRN PRN Reason: Hypoglycemia Protocol Stop: 03/29/23 16:44 Ondansetron HCl (Ondansetron Inj 2 Mg/Ml 2 Ml Vial) 4 mg IV Q6H PRN PRN Reason: Nausea Stop: 03/29/23 16:44 Polyethylene Glycol (Polyethylene (Miralax) 17 Gm Pack) 17 gm PO DAILY PRN PRN Reason: Constipation Stop: 03/29/23 16:44 (2) UTI (urinary tract infection) Hematuria presence: without hematuria Urinary tract infection type: acute cystitis Qualified Code(s): N30.00 - Acute cystitis without hematuria
[2023-03-01] MEDS: HEPARIN SOD 5,000 UNIT/0.5 ML VIAL SQ SCH (20:53)
[2023-03-01] MEDS ORDERED: HEPARIN SOD 5,000 UNIT/0.5 ML VIAL SQ SCH (22:00)
[2023-03-02] MEDS: INSULIN ASPART PER UNIT CHARGE SC SCH ×4 (08:08→20:50)
[2023-03-02 08:29] LABS: Basophils # (auto) 0.04 K/uL (0-0.2); Basophils % (auto) 0.4 %; Eosinophils # (auto) 0.14 K/uL (0-0.50); Eosinophils % (auto) 1.4 %; Hematocrit (blood only) 37.9 % (37.0-47.0); Hemoglobin 12.2 g/dl (12.0-16.0); Immature Granulocytes # (auto) 0.06 K/uL (0.01-0.20); Immature Granulocytes % (auto) 0.6 %; Lymphocytes # (auto) 0.99 K/uL (1.2-3.4); Lymphocytes % (auto) 9.6 %; Mean Corpuscular Hemoglobin 29.2 pg (25.0-34.0); Mean Corpuscular Hgb Conc 32.2 g/dL (32.0-36.0); Mean Corpuscular Volume 90.7 fL (80.0-100.0); Mean Platelet Volume 10.4 fL (9.4-12.4); Monocytes # (auto) 0.98 K/uL (0.11-0.59); Monocytes % (auto) 9.5 %; Neutrophils # (auto) 8.12 K/uL (1.40-6.50); Neutrophils % (auto) 78.5 %; Platelet Count 193 K/uL (130-400); RDW Coefficient of Variation 14.5 % (11.5-14.5); RDW Standard Deviation 48.7 fL (36.4-46.3); Red Blood Count 4.18 M/uL (4.20-5.40); White Blood Count 10.33 K/ul (4.8-10.8)
[2023-03-02] MEDS: LANTUS PER UNIT CHARGE SQ SCH ×2 (08:37→20:57)
[2023-03-02] MEDS: ADVANCED PROBIOTIC 1250 MG CAPSULE PO SCH (08:39)
[2023-03-02] MEDS: HEPARIN SOD 5,000 UNIT/0.5 ML VIAL SQ SCH ×2 (10:08→22:01)
[2023-03-02] MEDS: ERTAPENEM SODIUM 1,000 MG in SYRINGE 0 ML IV SCH (10:08)
--- NOTE | 2023-03-02 10:25 | XRay Report ---
XR chest 1V portable CLINICAL HISTORY: wheezing COMPARISON STUDY: Chest radiograph February 27, 2023. FINDINGS: Patient is rotated. No pneumothorax or pleural effusion is present. Allowing for rotation, cardiomegaly is unchanged. Mild interstitial thickening has developed. No definite consolidation. IMPRESSION: Interval development of interstitial thickening. This may reflect pulmonary vascular ankita estion. Although less likely, an infectious process could appear similar. ACT 112: Negative or not required by law. Electronically signed by: Cb Adams M.D. 03/02/2023 7:01 AM
[2023-03-02 11:59] LABS: Calcium 8.9 mg/dl (8.6-10.3)
[2023-03-02 12:04] LABS: BUN Creatinine Ratio 29.5 (10-20); Creatinine Clr Calc Pharmacy 48.4 ml/min; Est GFR (Non-African American) 64.7 ml/min
[2023-03-02] MEDS: METOPROLOL TARTRATE 1 MG/ML VIAL IV SCH ×2 (12:26→17:25)
[2023-03-02] MEDS: NSS + 20MEQ KCL 20 MEQ/1,000 ML BAG IV SCH (12:48)
[2023-03-02] MEDS ORDERED: FUROSEMIDE 40 MG/4 ML VIAL IV ONE (14:30)
[2023-03-02] MEDS ORDERED: ALBUTEROL 0.083% NEBU SOLN 3 ML VIAL NEB PRN (14:55)
--- NOTE | 2023-03-02 15:00 | Hospitalist Progress Note ---
Date of Service March 02, 2023 Assessment & Plan (1) Sepsis: Plan: Presented with increasing confusion, high white count and tachycardia Sepsis POA Secondary to UTI with ESBL Treatment is as below Noted to have wheezing with more shortness of breath Speech evaluation done to rule out possibility of aspiration Chest x-ray did not show mild congestive changes We will give 40 mg of IV Lasix Start nebulized bronchodilator (2) UTI (urinary tract infection): (3) T2DM (type 2 diabetes mellitus): (4) HTN (hypertension): Plan: Hypertension Controlled as outpatient on lisinopril, metoprolol and hydrochlorothiazide We will hold for now given cognition, once improves recommend resumption of home meds Blood pressure has been elevated Will start metoprolol 5 mg every 6 hourly regularly (5) HLD (hyperlipidemia): (6) Dementia with behavioral disturbance: (7) CKD (chronic kidney disease), stage III: Plan This is a 72-year-old female who has significant past medical history of T2DM, HTN, HLD, CKD stage III and dementia who presents to ED secondary to mental status change and responsiveness x2 days. Patient has picture of infectious metabolic encephalopathy likely in setting of UTI. At this time she technically does not meet criteria for sepsis Metabolic infectious encephalopathy UTI Noted to be semiconscious for the last 2 days at home Urine culture came back positive for ESBL and blood culture came back positive for the same Started with IV Rocephin and changed this morning to ertapenem IV fluid NSS plus KCl Alert and awake though pleasantly confused Clears has been started and will advance as tolerated Discussed with the PT and OT evaluation-Will need rehab placement White count is improving We will continue antibiotic intravenously for about 14 days Remains stable but confusion is persisting Dementia with behavioral disturbance Following neurology Discussed case with patient's PCP Dr. Green Worsening mental status in the last 4 months and currently undergoing further work-up and likely [facility] psych Dr. Green recommends MRI brain when patient able to tolerate Recently trialed Seroquel as outpatient and did not tolerate due to restlessness, per PCP patient tends to get agitation and restlessness in afternoon Remains confused and has history of dementia as above Has history of dementia which has been worsening for the last 2 years Dementia has been worsening in general Elevated troponin likely demand ischema in setting of infection will trend trops, repeat ecg consider echo if significant trop elevation-serial troponins are unremarkable for any ACS No cardiac symptoms and awaiting echo as ordered T2DM Controlled on outpatient regimen, last A1c 7.07 February 2023 Hold Jardiance and glipizide Has been on sliding scale insulin coverage CKD stage III Baseline creatinine 1.0-1.1 Avoid nephrotoxic agents, renal function at baseline Monitor Gross hematuria Per discussion with Dr. Green currently undergoing work-up as outpatient due to hematuria noted on UTI Patient was to have a bladder renal ultrasound today as outpatient, but got canceled secondary to hospitalization We will consider ultrasound once encephalopathy resolves Will monitor DVT prophylaxis: will do SCDS for now due to possible gross hematuria per PCP Dispo: PCU for now, pt DNR/DNI but given UTI, high risk for delirium suspect pt will require significant nursing assistance, can down grade to med/surg when able DNR/DNI PCP: Lyubov Green, discussed with PCP regarding pt hospitalization Case discussed with the in detail and all of his questions were answered Admission and Anticipated Discharge Date Admission Date: February 28, 2023 Subjective 02/28/2023 The patient was seen and examined in telemetry unit She has been semiresponsive at home for the last 2 days Was admitted yesterday with change in mental status noted to have ESBL bacteremia Has been feeling a little better since admission 03/01/2023 The patient is seen and examined in telemetry unit in presence of the She remains hemodynamically stable but very confused Does not have any other distress 03/02/2023 The patient was seen and examined in telemetry unit She remains very confused Has wheezing and shortness of breath at rest and her blood pressure has been going up Review of Systems Review of Systems: Unobtainable due to cognitive status Physical Exam Physical Exam: Lying in bed with dehydration and very dry mouth to speak Constitutional: + ill appearing and average body habitus Eyes: PERRL, conjunctivae normal, anicteric sclerae ENMT: external ear and nose normal, oropharynx normal Neck: trachea midline, no thyromegaly Respiratory: + respiratory distress (Mild to moderate distress) Auscultati on: + diminished lung sounds, + crackles and + wheezes Cardiovascular: Rate/Rhythm: regular rate and regular rhythm; not tachycardic Heart Sounds: normal S1 and normal S2; no murmur Extremities: no edema Gastrointestinal (Abdomen): Inspection/Auscultation: normal bowel sounds; abdomen not distended Percussion/Palpation: abdomen soft; abdomen nontender Musculoskeletal: No acute arthritis in any joint Neurologic: normal touch/pain/proprioception and moves all extremities; no focal motor deficits Lymphatic: no cervical or axillary lymphadenopathy Results & Data Results & Data Vital Signs (Past 12 Hours) Vital Signs Temp Pulse Pulse Resp BP BP BP 03/02/23 12:26 92 H 147/81 H 03/02/23 12:11 147/81 H 03/02/23 11:28 37.5 C 80 37 H 03/02/23 07:51 37.4 C 76 31 H 152/108 H 03/02/23 07:51 93 H 03/02/23 03:47 37.9 C H 91 H 24 147/113 H Pulse Ox O2 Del Method 03/02/23 12:26 03/02/23 12:11 03/02/23 11:28 97 Room Air 03/02/23 07:51 96 Room Air 03/02/23 07:51 03/02/23 03:47 97 Room Air Laboratory Results Short CBC 03/02/23 Range/Units 08:12 WBC 10.33 (4.8-10.8) K/ul Hgb 12.2 (12.0-16.0) g/dl Hct 37.9 (37.0-47.0) % Plt Count 193 (130-400) K/uL BMP 03/02/23 08:12 Sodium 147 H Potassium 5.0 Chloride 119 H Carbon Dioxide 20 L BUN 26 H Creatinine 0.88 Glucose 107 H Calcium 8.9 Medications Administered Current Inpatient Medications Acetaminophen (Acetaminophen 325 Mg Tab) 650 mg PO Q4H PRN PRN Reason: pain/fever Stop: 03/29/23 16:44 Al Hydrox/Mg Hydrox/Simethicone (Aluminum/Magnesium Susp 30 Ml Udc) 30 ml PO Q6H PRN PRN Reason: Dyspepsia Stop: 03/29/23 16:44 Albuterol (Albuterol 0.083% Nebu Soln 3 Ml Vial) 2.5 mg NEB Q6R PRN; Protocol PRN Reason: Wheezing Stop: 04/01/23 14:54 Dextrose (Dextrose 50% 50 Ml Syringe) 25 - 50 ml IV UD PRN; Protocol PRN Reason: Hypoglycemia Protocol Stop: 03/29/23 16:44 Glucagon (Glucagon For Inj 1 Mg Vial) 1 mg SQ UD PRN; Protocol PRN Reason: Hypoglycemia Protocol Stop: 03/29/23 16:44 Glucose (Glucose 10 Tab/Tube) 4 - 8 tab PO UD PRN; Protocol PRN Reason: Hypoglycemia Treatment Stop: 03/29/23 16:44 Glucose (Glucose 40% Gel 15 Gm Tube) 15 - 30 gm PO UD PRN; Protocol PRN Reason: Hypoglycemia Protocol Stop: 03/29/23 16:44 Heparin Sodium (Porcine) (Heparin Sod 5,000 Unit/0.5 Ml Vial) 5,000 units SQ Q12 [facility] Stop: 03/31/23 20:59 Last Admin: 03/02/23 10:08 Dose: 5,000 units Potassium Chloride/Sodium Chloride (Normal Saline W/20 Meq Kcl) 20 meq in 1,000 mls @ 75 mls/hr IV .[id number] [facility]; Protocol Stop: 03/29/23 16:59 Last Admin: 03/02/23 12:48 Dose: 75 mls/hr Ertapenem 1,000 mg/ Syringe 10 mls @ 2 mls/min IV Q24H [facility] Stop: 03/14/23 10:29 Last Admin: 03/02/23 10:08 Dose: 2 mls/min Insulin Aspart (Insulin Aspart Per Unit Charge) 0 units SC ACHS [facility] Stop: 03/29/23 17:59 Last Admin: 03/02/23 12:15 Dose: Not Given Insulin Glargine (Lantus Per Unit Charge) 0 - 6 units SQ BID [facility] Stop: 03/29/23 20:59 Last Admin: 03/02/23 08:37 Dose: Not Given Lactobacillus Acidophilus (Advanced Probiotic 1250 Mg Capsule) 2 cap PO DAILY [facility] Stop: 03/29/23 16:44 Last Admin: 03/02/23 08:39 Dose: Not Given Magnesium Hydroxide (Magnesium Hydroxide Susp 30 Ml Udc) 30 ml PO Q6H PRN PRN Reason: Constipation Stop: 03/29/23 16:44 Metoprolol Tartrate (Metoprolol Tartrate 1 Mg/Ml Vial) 5 mg IV Q6 [facility] Stop: 04/01/23 11:59 Last Admin: 03/02/23 12:26 Dose: 5 mg Miscellaneous (Carbohydrates For Hypoglycemia ) 15 - 30 gm PO UD PRN PRN Reason: Hypoglycemia Protocol Stop: 03/29/23 16:44 Ondansetron HCl (Ondansetron Inj 2 Mg/Ml 2 Ml Vial) 4 mg IV Q6H PRN PRN Reason: Nausea Stop: 03/29/23 16:44 Polyethylene Glycol (Polyethylene (Miralax) 17 Gm Pack) 17 gm PO DAILY PRN PRN Reason: Constipation Stop: 03/29/23 16:44 (2) UTI (urinary tract infection) Hematuria presence: without hematuria Urinary tract infection type: acute cystitis Qualified Code(s): N30.00 - Acute cystitis without hematuria
[2023-03-03] MEDS: METOPROLOL TARTRATE 1 MG/ML VIAL IV SCH ×3 (00:06→12:47)
[2023-03-03] MEDS: NSS + 20MEQ KCL 20 MEQ/1,000 ML BAG IV SCH ×2 (02:08→15:38)
[2023-03-03 07:13] LABS: Basophils # (auto) 0.04 K/uL (0-0.2); Basophils % (auto) 0.5 %; Eosinophils % (auto) 4.8 %; Hematocrit (blood only) 34.4 % (37.0-47.0); Hemoglobin 11.4 g/dl (12.0-16.0); Immature Granulocytes # (auto) 0.06 K/uL (0.01-0.20); Immature Granulocytes % (auto) 0.7 %; Lymphocytes # (auto) 0.96 K/uL (1.2-3.4); Lymphocytes % (auto) 11.4 %; Mean Corpuscular Hemoglobin 29.3 pg (25.0-34.0); Mean Corpuscular Hgb Conc 33.1 g/dL (32.0-36.0); Mean Corpuscular Volume 88.4 fL (80.0-100.0); Mean Platelet Volume 10.7 fL (9.4-12.4); Monocytes # (auto) 1.09 K/uL (0.11-0.59); Monocytes % (auto) 12.9 %; Neutrophils # (auto) 5.87 K/uL (1.40-6.50); Neutrophils % (auto) 69.7 %; Platelet Count 204 K/uL (130-400); RDW Coefficient of Variation 14.5 % (11.5-14.5); Red Blood Count 3.89 M/uL (4.20-5.40); White Blood Count 8.42 K/ul (4.8-10.8)
[2023-03-03 07:20] LABS: BUN Creatinine Ratio 26.7 (10-20); Calcium 8.3 mg/dl (8.6-10.3); Creatinine Clr Calc Pharmacy 47.4 ml/min; Potassium 3.8 mmol/L (3.5-5.1)
[2023-03-03] MEDS: ADVANCED PROBIOTIC 1250 MG CAPSULE PO SCH (08:36)
[2023-03-03] MEDS: LANTUS PER UNIT CHARGE SQ SCH ×2 (08:36→21:27)
[2023-03-03] MEDS: HEPARIN SOD 5,000 UNIT/0.5 ML VIAL SQ SCH ×2 (08:36→21:28)
[2023-03-03] MEDS: INSULIN ASPART PER UNIT CHARGE SC SCH ×4 (08:36→21:27)
[2023-03-03] MEDS: ERTAPENEM SODIUM 1,000 MG in SYRINGE 0 ML IV SCH (10:15)
[2023-03-03] MEDS ORDERED: LOPERAMIDE HCL 2 MG CAP PO PRN (13:31)
[2023-03-03] MEDS: METOPROLOL SUCC 25MG EXT REL TAB PO SCH (13:34)
--- NOTE | 2023-03-03 14:22 | Hospitalist Progress Note ---
Date of Service March 03, 2023 Assessment & Plan (1) Sepsis: Plan: Presented with increasing confusion, high white count and tachycardia Sepsis POA Secondary to UTI with ESBL Treatment is as below Noted to have wheezing with more shortness of breath Speech evaluation done to rule out possibility of aspiration Chest x-ray did not show mild congestive changes We will give 40 mg of IV Lasix Start nebulized bronchodilator Minimal to no wheezing and no shortness of breath (2) UTI (urinary tract infection): (3) T2DM (type 2 diabetes mellitus): (4) HTN (hypertension): Plan: Hypertension Controlled as outpatient on lisinopril, metoprolol and hydrochlorothiazide We will hold for now given cognition, once improves recommend resumption of home meds Blood pressure has been elevated Will start metoprolol 5 mg every 6 hourly regularly We will restart her usual oral medications for blood pressure (5) HLD (hyperlipidemia): (6) Dementia with behavioral disturbance: Plan: Dementia has been worsening for the last 2 years or so (7) CKD (chronic kidney disease), stage III: Plan This is a 72-year-old female who has significant past medical history of T2DM, HTN, HLD, CKD stage III and dementia who presents to ED secondary to mental status change and responsiveness x2 days. Patient has picture of infectious metabolic encephalopathy likely in setting of UTI. At this time she technically does not meet criteria for sepsis Metabolic infectious encephalopathy UTI-ESBL UTI Noted to be semiconscious for the last 2 days at home Urine culture came back positive for ESBL and blood culture came back positive for the same Started with IV Rocephin and changed this morning to ertapenem IV fluid NSS plus KCl Alert and awake though pleasantly confused Clears has been started and will advance as tolerated Discussed with the PT and OT evaluation-Will need rehab placement White count is improving We will continue antibiotic intravenously for about 14 days Has been having diarrhea-we will check a stool for any C. difficile and try Imodium Dementia with behavioral disturbance Following neurology Discussed case with patient's PCP Dr. Green Worsening mental status in the last 4 months and currently undergoing further work-up and likely [facility] psych Dr. Green recommends MRI brain when patient able to tolerate Recently trialed Seroquel as outpatient and did not tolerate due to restlessness, per PCP patient tends to get agitation and restlessness in afternoon Remains confused and has history of dementia as above Has history of dementia which has been worsening for the last 2 years Dementia has been worsening in general Elevated troponin likely demand ischema in setting of infection will trend trops, repeat ecg consider echo if significant trop elevation-serial troponins are unremarkable for any ACS No cardiac symptoms and awaiting echo as ordered T2DM Controlled on outpatient regimen, last A1c 7.07 February 2023 Hold Jardiance and glipizide Has been on sliding scale insulin coverage CKD stage III Baseline creatinine 1.0-1.1 Avoid nephrotoxic agents, renal function at baseline Monitor-creatinine has been normal but sodium is 148 due to dehydration Advised to drink more fluid Gross hematuria Per discussion with Dr. Green currently undergoing work-up as outpatient due to hematuria noted on UTI Patient was to have a bladder renal ultrasound today as outpatient, but got canceled secondary to hospitalization We will consider ultrasound once encephalopathy resolves Will monitor DVT prophylaxis: will do SCDS for now due to possible gross hematuria per PCP Dispo: PCU for now, pt DNR/DNI but given UTI, high risk for delirium suspect pt will require significant nursing assistance, can down grade to med/surg when able DNR/DNI PCP: Lyubov Green, discussed with PCP regarding pt hospitalization Case discussed with the in detail and all of his questions were answered Will need placement and awaiting acceptance Admission and Anticipated Discharge Date Admission Date: February 28, 2023 Subjective 02/28/2023 The patient was seen and examined in telemetry unit She has been semiresponsive at home for the last 2 days Was admitted yesterday with change in mental status noted to have ESBL bacteremia Has been feeling a little better since admission 03/01/2023 The patient is seen and examined in telemetry unit in presence of the She remains hemodynamically stable but very confused Does not have any other distress 03/02/2023 The patient was seen and examined in telemetry unit She remains very confused Has wheezing and shortness of breath at rest and her blood pressure has been going up 03/03/2023 The patient was seen and examined in telemetry unit in presence of the She has been a little better today and out of bed on a chair She has been eating reasonably and trying to drink Will remains very confused Review of Systems Review of Systems: Unobtainable due to cognitive status Physical Exam Physical Exam: Sitting on a chair without any acute distress but is profoundly confused Constitutional: + ill appearing and average body habitus Eyes: PERRL, conjunctivae normal, anicteric sclerae ENMT: external ear and nose normal, oropharynx normal Neck: trachea midline, no thyromegaly Respiratory: + respiratory distress (Mild to moderate distress) Auscultation: lungs clear to auscultation bilaterally, + diminished lung sounds, + crackles and + wheezes Cardiovascular: Rate/Rhythm: regular rate and regular rhythm; not tachycardic Heart Sounds: normal S1 and normal S2; no murmur Extremities: no edema Gastrointestinal (Abdomen): Inspection/Auscultation: normal bowel sounds; abdomen not distended Percussion/Palpation: abdomen soft; abdomen nontender Neurologic: normal touch/pain/proprioception and moves all extremities; no focal motor deficits Lymphatic: no cervical or axillary lymphadenopathy Results & Data Results & Data Vital Signs (Past 12 Hours) Vital Signs Temp Pulse Pulse Resp BP BP Pulse Ox 03/03/23 12:47 98 H 132/84 03/03/23 12:26 36.4 C L 82 18 132/84 100 03/03/23 07:44 36.6 C 64 22 140/94 98 03/03/23 05:30 56 L 03/03/23 03:58 36.7 C 76 19 152/109 H 93 O2 Del Method 03/03/23 12:47 03/03/23 12:26 Room Air 03/03/23 07:44 Room Air 03/03/23 05:30 03/03/23 03:58 Room Air Laboratory Results Short CBC 03/03/23 Range/Units 06:11 WBC 8.42 (4.8-10.8) K/ul Hgb 11.4 L (12.0-16.0) g/dl Hct 34.4 L (37.0-47.0) % Plt Count 204 (130-400) K/uL BMP 03/03/23 06:11 Sodium 148 H Potassium 3.8 D Chloride 117 H Carbon Dioxide 23 BUN 24 H Creatinine 0.90 Glucose 120 H Calcium 8.3 L Medications Administered Current Inpatient Medications Acetaminophen (Acetaminophen 325 Mg Tab) 650 mg PO Q4H PRN PRN Reason: pain/fever Stop: 03/29/23 16:44 Al Hydrox/Mg Hydrox/Simethicone (Aluminum/Magnesium Susp 30 Ml Udc) 30 ml PO Q6H PRN PRN Reason: Dyspepsia Stop: 03/29/23 16:44 Albuterol (Albuterol 0.083% Nebu Soln 3 Ml Vial) 2.5 mg NEB Q6R PRN; Protocol PRN Reason: Wheezing Stop: 04/01/23 14:54 Dextrose (Dextrose 50% 50 Ml Syringe) 25 - 50 ml IV UD PRN; Protocol PRN Reason: Hypoglycemia Protocol Stop: 03/29/23 16:44 Glucagon (Glucagon For Inj 1 Mg Vial) 1 mg SQ UD PRN; Protocol PRN Reason: Hypoglycemia Protocol Stop: 03/29/23 16:44 Glucose (Glucose 10 Tab/Tube) 4 - 8 tab PO UD PRN; Protocol PRN Reason: Hypoglycemia Treatment Stop: 03/29/23 16:44 Glucose (Glucose 40% Gel 15 Gm Tube) 15 - 30 gm PO UD PRN; Protocol PRN Reason: Hypoglycemia Protocol Stop: 03/29/23 16:44 Heparin Sodium (Porcine) (Heparin Sod 5,000 Unit/0.5 Ml Vial) 5,000 units SQ Q12 [facility] Stop: 03/31/23 20:59 Last Admin: 03/03/23 08:36 Dose: 5,000 units Potassium Chloride/Sodium Chloride (Normal Saline W/20 Meq Kcl) 20 meq in 1,000 mls @ 75 mls/hr IV .[id number] [facility]; Protocol Stop: 03/29/23 16:59 Last Admin: 03/03/23 02:08 Dose: 75 mls/hr Ertapenem 1,000 mg/ Syringe 10 mls @ 2 mls/min IV Q24H [facility] Stop: 03/14/23 10:29 Last Admin: 03/03/23 10:15 Dose: 2 mls/min Insulin Aspart (Insulin Aspart Per Unit Charge) 0 units SC ACHS [facility] Stop: 03/29/23 17:59 Last Admin: 03/03/23 11:48 Dose: Not Given Insulin Glargine (Lantus Per Unit Charge) 0 - 6 units SQ BID [facility] Stop: 03/29/23 20:59 Last Admin: 03/03/23 08:36 Dose: 3 units Lactobacillus Acidophilus (Advanced Probiotic 1250 Mg Capsule) 2 cap PO DAILY [facility] Stop: 03/29/23 16:44 Last Admin: 03/03/23 08:36 Dose: 2 cap Loperamide HCl (Loperamide Hcl 2 Mg Cap) 2 mg PO Q3H PRN PRN Reason: Diarrhea Stop: 04/02/23 13:30 Magnesium Hydroxide (Magnesium Hydroxide Susp 30 Ml Udc) 30 ml PO Q6H PRN PRN Reason: Constipation Stop: 03/29/23 16:44 Metoprolol Succinate (Metoprolol Succ 25mg Ext Rel Tab) 25 mg PO QAM [facility] Stop: 04/02/23 13:29 Last Admin: 03/03/23 13:34 Dose: Not Given Miscellaneous (Carbohydrates For Hypoglycemia ) 15 - 30 gm PO UD PRN PRN Reason: Hypoglycemia Protocol Stop: 03/29/23 16:44 Ondansetron HCl (Ondansetron Inj 2 Mg/Ml 2 Ml Vial) 4 mg IV Q6H PRN PRN Reason: Nausea Stop: 03/29/23 16:44 Polyethylene Glycol (Polyethylene (Miralax) 17 Gm Pack) 17 gm PO DAILY PRN PRN Reason: Constipation Stop: 03/29/23 16:44 (2) UTI (urinary tract infection) Hematuria presence: without hematuria Urinary tract infection type: acute cystitis Qualified Code(s): N30.00 - Acute cystitis without hematuria
[2023-03-04] MEDS: NSS + 20MEQ KCL 20 MEQ/1,000 ML BAG IV SCH ×2 (05:00→17:23)
[2023-03-04 07:40] LABS: Basophils # (auto) 0.04 K/uL (0-0.2); Basophils % (auto) 0.5 %; Eosinophils # (auto) 0.36 K/uL (0-0.50); Eosinophils % (auto) 4.6 %; Hematocrit (blood only) 32.4 % (37.0-47.0); Hemoglobin 10.6 g/dl (12.0-16.0); Immature Granulocytes # (auto) 0.11 K/uL (0.01-0.20); Immature Granulocytes % (auto) 1.4 %; Lymphocytes # (auto) 1.28 K/uL (1.2-3.4); Lymphocytes % (auto) 16.5 %; Mean Corpuscular Hemoglobin 29.2 pg (25.0-34.0); Mean Corpuscular Hgb Conc 32.7 g/dL (32.0-36.0); Mean Corpuscular Volume 89.3 fL (80.0-100.0); Mean Platelet Volume 10.4 fL (9.4-12.4); Monocytes % (auto) 11.6 %; Neutrophils # (auto) 5.09 K/uL (1.40-6.50); Neutrophils % (auto) 65.4 %; Platelet Count 210 K/uL (130-400); RDW Coefficient of Variation 14.1 % (11.5-14.5); RDW Standard Deviation 46.3 fL (36.4-46.3); Red Blood Count 3.63 M/uL (4.20-5.40); White Blood Count 7.78 K/ul (4.8-10.8)
[2023-03-04 07:51] LABS: BUN Creatinine Ratio 26.6 (10-20); Calcium 8.2 mg/dl (8.6-10.3); Creatinine Clr Calc Pharmacy 53.9 ml/min; Est GFR (African American) 85.5 ml/min; Est GFR (Non-African American) 73.7 ml/min
[2023-03-04] MEDS: INSULIN ASPART PER UNIT CHARGE SC SCH ×4 (08:00→21:44)
[2023-03-04] MEDS ORDERED: METOPROLOL SUCC 25MG EXT REL TAB PO SCH (09:00)
[2023-03-04] MEDS: LANTUS PER UNIT CHARGE SQ SCH ×2 (09:02→21:44)
[2023-03-04] MEDS: HEPARIN SOD 5,000 UNIT/0.5 ML VIAL SQ SCH ×2 (09:32→21:45)
[2023-03-04] MEDS: ADVANCED PROBIOTIC 1250 MG CAPSULE PO SCH (09:33)
[2023-03-04] MEDS: ASPIRIN 81 MG ECTAB PO SCH (09:33)
[2023-03-04] MEDS: METOPROLOL SUCC 25MG EXT REL TAB PO SCH (09:33)
[2023-03-04] MEDS: ATORVASTATIN 20 MG TAB PO SCH (09:33)
[2023-03-04] MEDS: CHOLECALCIFEROL 1,000 UNITS 25 MCG TAB PO SCH (09:34)
[2023-03-04] MEDS: SERTRALINE HCL 50 MG TABLET PO SCH (09:34)
[2023-03-04] MEDS: CALCIUM 600MG + VIT D 400 IU TAB PO SCH (09:34)
[2023-03-04] MEDS: FERROUS SULFATE 325 MG TAB PO SCH (09:34)
[2023-03-04] MEDS: ERTAPENEM SODIUM 1,000 MG in SYRINGE 0 ML IV SCH (10:24)
--- NOTE | 2023-03-04 14:08 | Hospitalist Progress Note ---
Date of Service March 04, 2023 Assessment & Plan (1) Sepsis: Plan: Presented with increasing confusion, high white count and tachycardia Sepsis POA Secondary to UTI with ESBL Treatment is as below Noted to have wheezing with more shortness of breath Speech evaluation done to rule out possibility of aspiration Chest x-ray did not show mild congestive changes We will give 40 mg of IV Lasix Start nebulized bronchodilator Minimal to no wheezing and no shortness of breath No shortness of breath at rest and has been saturating normally on room air (2) UTI (urinary tract infection): Plan: This is a 72-year-old female who has significant past medical history of T2DM, HTN, HLD, CKD stage III and dementia who presents to ED secondary to mental status change and responsiveness x2 days. Patient has picture of infectious metabolic encephalopathy likely in setting of UTI. At this time she technically does not meet criteria for sepsis Metabolic infectious encephalopathy UTI-ESBL UTI Noted to be semiconscious for the last 2 days at home Urine culture came back positive for ESBL and blood culture came back positive for the same Started with IV Rocephin and changed this morning to ertapenem IV fluid NSS plus KCl Alert and awake though pleasantly confused Clears has been started and will advance as tolerated Discussed with the PT and OT evaluation-Will need rehab placement White count is improving We will continue antibiotic intravenously for about 14 days Has been having diarrhea-we will check a stool for any C. difficile and try Imodium Clinically better and symptomatically better (3) T2DM (type 2 diabetes mellitus): (4) HTN (hypertension): Plan: Hypertension Controlled as outpatient on lisinopril, metoprolol and hydrochlorothiazide We will hold for now given cognition, once improves recommend resumption of home meds Blood pressure has been elevated Will start metoprolol 5 mg every 6 hourly regularly We will restart her usual oral medications for blood pressure (5) HLD (hyperlipidemia): (6) Dementia with behavioral disturbance: Plan: Dementia with behavioral disturbance Following neurology Discussed case with patient's PCP Dr. Green Worsening mental status in the last 4 months and currently undergoing further work-up and likely [facility] psych Dr. Green recommends MRI brain when patient able to tolerate Recently trialed Seroquel as outpatient and did not tolerate due to restlessness, per PCP patient tends to get agitation and restlessness in afternoon Remains confused and has history of dementia as above Has history of dementia which has been worsening for the last 2 years Dementia has been worsening in general Dementia has been worsening for the last 2 years or so Remains pleasantly confused and is a little better from profound confusion until today (7) CKD (chronic kidney disease), stage III: Plan: CKD stage III Baseline creatinine 1.0-1.1 Avoid nephrotoxic agents, renal function at baseline Monitor-creatinine has been normal but sodium is 148 due to dehydration Advised to drink more fluid Kidney function is normalized Plan Elevated troponin likely demand ischema in setting of infection will trend trops, repeat ecg consider echo if significant trop elevation-serial troponins are unremarkable for any ACS No cardiac symptoms and awaiting echo as ordered T2DM Controlled on outpatient regimen, last A1c 7.07 February 2023 Hold Jardiance and glipizide Has been on sliding scale insulin coverage Gross hematuria Per discussion with Dr. Green currently undergoing work-up as outpatient due to hematuria noted on UTI Patient was to have a bladder renal ultrasound today as outpatient, but got canceled secondary to hospitalization We will consider ultrasound once encephalopathy resolves Will monitor-does not seem to have any more hematuria DVT prophylaxis: will do SCDS for now due to possible gross hematuria per PCP Dispo: PCU for now, pt DNR/DNI but given UTI, high risk for delirium suspect pt will require significant nursing assistance, can down grade to med/surg when able DNR/DNI PCP: Lyubov Green, discussed with PCP regarding pt hospitalization Case discussed with the in detail and all of his questions were answered Will need placement and awaiting acceptance Discussed with the sister Admission and Anticipated Discharge Date Admission Date: February 28, 2023 Subjective 02/28/2023 The patient was seen and examined in telemetry unit She has been semiresponsive at home for the last 2 days Was admitted yesterday with change in mental status noted to have ESBL bacteremia Has been feeling a little better since admission 03/01/2023 The patient is seen and examined in telemetry unit in presence of the She remains hemodynamically stable but very confused Does not have any other distress 03/02/2023 The patient was seen and examined in telemetry unit She remains very confused Has wheezing and shortness of breath at rest and her blood pressure has been going up 03/03/2023 The patient was seen and examined in telemetry unit in presence of the She has been a little better today and out of bed on a chair She has been eating reasonably and trying to drink Will remains very confused 03/04/2023 The patient was seen and examined in telemetry unit in presence of the sister Today is the first time that she recognized me She communicated with me reasonably but is still remains pleasantly confused Denies any significant symptoms except weakness Review of Systems Review of Systems: All systems reviewed and are unremarkable except as noted below Physical Exam Physical Exam: Lying in bed and remains pleasantly confused Constitutional: + ill appearing and average body habitus Eyes: PERRL, conjunctivae normal, anicteric sclerae ENMT: external ear and nose normal, oropharynx normal Neck: trachea midline, no thyromegaly Respiratory: + respiratory distress (Mild to moderate distress) Auscultation: lungs clear to auscultation bilaterally, + diminished lung sounds, + crackles and + wheezes Cardiovascular: Rate/Rhythm: regular rate and regular rhythm; not tachycardic Heart Sounds: normal S1 and normal S2; no murmur Extremities: no edema Gastrointestinal (Abdomen): Inspection/Auscultation: normal bowel sounds; abdomen not distended Percussion/Palpation: abdomen soft; abdomen nontender Musculoskeletal: No acute arthritis involving any of the joint Neurologic: normal touch/pain/proprioception and moves all extremities; no focal motor deficits Lymphatic: no cervical or axillary lymphadenopathy Results & Data Results & Data Vital Signs (Past 12 Hours) Vital Signs Temp Pulse Pulse Resp BP Pulse Ox O2 Del Method 03/04/23 11:11 36.5 C 63 16 173/82 H 98 Room Air 03/04/23 08:20 37.4 C 68 18 171/84 H 97 Room Air 03/04/23 08:00 Room Air 03/04/23 06:02 65 Laboratory Results Short CBC 03/04/23 Range/Units 06:49 WBC 7.78 (4.8-10.8) K/ul Hgb 10.6 L (12.0-16.0) g/dl Hct 32.4 L (37.0-47.0) % Plt Count 210 (130-400) K/uL BMP 03/04/23 06:49 Sodium 147 H Potassium 4.0 Chloride 119 H Carbon Dioxide 23 BUN 21 Creatinine 0.79 Glucose 98 Calcium 8.2 L Medications Administered Current Inpatient Medications Acetaminophen (Acetaminophen 325 Mg Tab) 650 mg PO Q4H PRN PRN Reason: pain/fever Stop: 03/29/23 16:44 Al Hydrox/Mg Hydrox/Simethicone (Aluminum/Magnesium Susp 30 Ml Udc) 30 ml PO Q6H PRN PRN Reason: Dyspepsia Stop: 03/29/23 16:44 Albuterol (Albuterol 0.083% Nebu Soln 3 Ml Vial) 2.5 mg NEB Q6R PRN; Protocol PRN Reason: Wheezing Stop: 04/01/23 14:54 Aspirin (Aspirin 81 Mg Ectab) 81 mg PO DAILY [facility] Stop: 04/03/23 08:59 Last Admin: 03/04/23 09:33 Dose: 81 mg Atorvastatin Calcium (Atorvastatin 20 Mg Tab) 20 mg PO DAILY [facility] Stop: 04/03/23 08:59 Last Admin: 03/04/23 09:33 Dose: 20 mg Calcium/Vitamin D (Calcium 600mg + Vit D 400 Iu Tab) 1 tab PO DAILY [facility] Stop: 04/03/23 08:59 Last Admin: 03/04/23 09:34 Dose: 1 tab Dextrose (Dextrose 50% 50 Ml Syringe) 25 - 50 ml IV UD PRN; Protocol PRN Reason: Hypoglycemia Protocol Stop: 03/29/23 16:44 Ferrous Sulfate (Ferrous Sulfate 325 Mg Tab) 325 mg PO DAILY [facility] Stop: 04/03/23 08:59 Last Admin: 03/04/23 09:34 Dose: 325 mg Glucagon (Glucagon For Inj 1 Mg Vial) 1 mg SQ UD PRN; Protocol PRN Reason: Hypoglycemia Protocol Stop: 03/29/23 16:44 Glucose (Glucose 10 Tab/Tube) 4 - 8 tab PO UD PRN; Protocol PRN Reason: Hypoglycemia Treatment Stop: 03/29/23 16:44 Glucose (Glucose 40% Gel 15 Gm Tube) 15 - 30 gm PO UD PRN; Protocol PRN Reason: Hypoglycemia Protocol Stop: 03/29/23 16:44 Heparin Sodium (Porcine) (Heparin Sod 5,000 Unit/0.5 Ml Vial) 5,000 units SQ Q12 [facility] Stop: 03/31/23 20:59 Last Admin: 03/04/23 09:32 Dose: 5,000 units Potassium Chloride/Sodium Chloride (Normal Saline W/20 Meq Kcl) 20 meq in 1,000 mls @ 75 mls/hr IV .[id number] [facility]; Protocol Stop: 03/29/23 16:59 Last Infusion: 03/04/23 10:24 Dose: 75 mls/hr Ertapenem 1,000 mg/ Syringe 10 mls @ 2 mls/min IV Q24H [facility] Stop: 03/14/23 10:29 Last Admin: 03/04/23 10:24 Dose: 2 mls/min Insulin Aspart (Insulin Aspart Per Unit Charge) 0 units SC ACHS [facility] Stop: 03/29/23 17:59 Last Admin: 03/04/23 11:57 Dose: Not Given Insulin Glargine (Lantus Per Unit Charge) 0 - 6 units SQ BID [facility] Stop: 03/29/23 20:59 Last Admin: 03/04/23 09:02 Dose: Not Given Lactobacillus Acidophilus (Advanced Probiotic 1250 Mg Capsule) 2 cap PO DAILY [facility] Stop: 03/29/23 16:44 Last Admin: 03/04/23 09:33 Dose: 2 cap Loperamide HCl (Loperamide Hcl 2 Mg Cap) 2 mg PO Q3H PRN PRN Reason: Diarrhea Stop: 04/02/23 13:30 Magnesium Hydroxide (Magnesium Hydroxide Susp 30 Ml Udc) 30 ml PO Q6H PRN PRN Reason: Constipation Stop: 03/29/23 16:44 Metoprolol Succinate (Metoprolol Succ 25mg Ext Rel Tab) 25 mg PO QAM [facility] Stop: 04/02/23 13:29 Last Admin: 03/04/23 09:33 Dose: 25 mg Miscellaneous (Carbohydrates For Hypoglycemia ) 15 - 30 gm PO UD PRN PRN Reason: Hypoglycemia Protocol Stop: 03/29/23 16:44 Ondansetron HCl (Ondansetron Inj 2 Mg/Ml 2 Ml Vial) 4 mg IV Q6H PRN PRN Reason: Nausea Stop: 03/29/23 16:44 Polyethylene Glycol (Polyethylene (Miralax) 17 Gm Pack) 17 gm PO DAILY PRN PRN Reason: Constipation Stop: 03/29/23 16:44 Sertraline HCl (Sertraline Hcl 50 Mg Tablet) 50 mg PO DAILY [facility] Stop: 04/03/23 08:59 Last Admin: 03/04/23 09:34 Dose: 50 mg Vitamin D (Cholecalciferol 1,000 Units 25 Mcg Tab) 1,000 units PO DAILY [facility] Stop: 04/03/23 08:59 Last Admin: 03/04/23 09:34 Dose: 1,000 units (2) UTI (urinary tract infection) Hematuria presence: without hematuria Urinary tract infection type: acute cystitis Qualified Code(s): N30.00 - Acute cystitis without hematuria
[2023-03-05] MEDS: NSS + 20MEQ KCL 20 MEQ/1,000 ML BAG IV SCH ×2 (05:22→22:27)
[2023-03-05 06:26] LABS: Hematocrit (blood only) 30.7 % (37.0-47.0); Hemoglobin 10.3 g/dl (12.0-16.0); Mean Corpuscular Hemoglobin 29.3 pg (25.0-34.0); Mean Corpuscular Hgb Conc 33.6 g/dL (32.0-36.0); Mean Corpuscular Volume 87.2 fL (80.0-100.0); Mean Platelet Volume 10.4 fL (9.4-12.4); Platelet Count 221 K/uL (130-400); RDW Coefficient of Variation 13.6 % (11.5-14.5); RDW Standard Deviation 43.2 fL (36.4-46.3); Red Blood Count 3.52 M/uL (4.20-5.40); White Blood Count 9.25 K/ul (4.8-10.8)
[2023-03-05 06:46] LABS: BUN Creatinine Ratio 17.9 (10-20); Calcium 7.7 mg/dl (8.6-10.3); Creatinine Clr Calc Pharmacy 54.6 ml/min; Est GFR (African American) 86.8 ml/min; Est GFR (Non-African American) 74.9 ml/min; Potassium 3.7 mmol/L (3.5-5.1)
[2023-03-05 06:52] LABS: Basophils # (auto) 0.06 K/uL (0-0.2); Basophils % (auto) 0.6 %; Eosinophils % (auto) 5.4 %; Immature Granulocytes # (auto) 0.24 K/uL (0.01-0.20); Immature Granulocytes % (auto) 2.6 %; Lymphocytes # (auto) 1.72 K/uL (1.2-3.4); Lymphocytes % (auto) 18.6 %; Monocytes # (auto) 0.81 K/uL (0.11-0.59); Monocytes % (auto) 8.8 %; Neutrophils # (auto) 5.92 K/uL (1.40-6.50)
[2023-03-05] MEDS: INSULIN ASPART PER UNIT CHARGE SC SCH ×4 (09:11→22:41)
[2023-03-05] MEDS: METOPROLOL SUCC 25MG EXT REL TAB PO SCH (09:13)
[2023-03-05] MEDS: SERTRALINE HCL 50 MG TABLET PO SCH (09:13)
[2023-03-05] MEDS: ATORVASTATIN 20 MG TAB PO SCH (09:14)
[2023-03-05] MEDS: ASPIRIN 81 MG ECTAB PO SCH (09:14)
[2023-03-05] MEDS: CHOLECALCIFEROL 1,000 UNITS 25 MCG TAB PO SCH (09:14)
[2023-03-05] MEDS: ADVANCED PROBIOTIC 1250 MG CAPSULE PO SCH (09:14)
[2023-03-05] MEDS: FERROUS SULFATE 325 MG TAB PO SCH (09:14)
[2023-03-05] MEDS: HEPARIN SOD 5,000 UNIT/0.5 ML VIAL SQ SCH ×2 (09:15→22:42)
[2023-03-05] MEDS: CALCIUM 600MG + VIT D 400 IU TAB PO SCH (09:15)
[2023-03-05] MEDS: LANTUS PER UNIT CHARGE SQ SCH ×2 (09:16→22:41)
--- NOTE | 2023-03-05 12:40 | Hospitalist Progress Note ---
Date of Service March 05, 2023 Assessment & Plan (1) Sepsis: Plan: Presented with increasing confusion, high white count and tachycardia Sepsis POA Secondary to UTI with ESBL Treatment is as below Noted to have wheezing with more shortness of breath Speech evaluation done to rule out possibility of aspiration Chest x-ray did not show mild congestive changes We will give 40 mg of IV Lasix Start nebulized bronchodilator Minimal to no wheezing and no shortness of breath No shortness of breath at rest and has been saturating normally on room air (2) UTI (urinary tract infection): Plan: This is a 72-year-old female who has significant past medical history of T2DM, HTN, HLD, CKD stage III and dementia who presents to ED secondary to mental status change and responsiveness x2 days. Patient has picture of infectious metabolic encephalopathy likely in setting of UTI. At this time she technically does not meet criteria for sepsis Metabolic infectious encephalopathy UTI-ESBL UTI Noted to be semiconscious for the last 2 days at home Urine culture came back positive for ESBL and blood culture came back positive for the same Started with IV Rocephin and changed this morning to ertapenem IV fluid NSS plus KCl Alert and awake though pleasantly confused Clears has been started and will advance as tolerated Discussed with the PT and OT evaluation-Will need rehab placement White count is improving We will continue antibiotic intravenously for about 14 days Has been having diarrhea-we will check a stool for any C. difficile and try Imodium Clinically better and symptomatically better Repeat blood cultures are pending Clinically she has been stable (3) T2DM (type 2 diabetes mellitus): (4) HTN (hypertension): Plan: Hypertension Controlled as outpatient on lisinopril, metoprolol and hydrochlorothiazide We will hold for now given cognition, once improves recommend resumption of home meds Blood pressure has been elevated Will start metoprolol 5 mg every 6 hourly regularly We will restart her usual oral medications for blood pressure Her blood pressure medications have been restarted (5) HLD (hyperlipidemia): (6) Dementia with behavioral disturbance: Plan: Dementia with behavioral disturbance Following neurology Discussed case with patient's PCP Dr. Green Worsening mental status in the last 4 months and currently undergoing further work-up and likely [facility] psych Dr. Green recommends MRI brain when patient able to tolerate Recently trialed Seroquel as outpatient and did not tolerate due to restlessness, per PCP patient tends to get agitation and restlessness in afternoon Remains confused and has history of dementia as above Has history of dementia which has been worsening for the last 2 years Dementia has been worsening in general Dementia has been worsening for the last 2 years or so Remains pleasantly confused and is a little better from profound confusion until today (7) CKD (chronic kidney disease), stage III: Plan: CKD stage III Baseline creatinine 1.0-1.1 Avoid nephrotoxic agents, renal function at baseline Monitor-creatinine has been normal but sodium is 148 due to dehydration Advised to drink more fluid Kidney function is normalized Plan Elevated troponin likely demand ischema in setting of infection will trend trops, repeat ecg consider echo if significant trop elevation-serial troponins are unremarkable for any ACS No cardiac symptoms and awaiting echo as ordered T2DM Controlled on outpatient regimen, last A1c 7.07 February 2023 Hold Jardiance and glipizide Has been on sliding scale insulin coverage Gross hematuria Per discussion with Dr. Green currently undergoing work-up as outpatient due to hematuria noted on UTI Patient was to have a bladder renal ultrasound today as outpatient, but got canceled secondary to hospitalization We will consider ultrasound once encephalopathy resolves Will monitor-does not seem to have any more hematuria DVT prophylaxis: will do SCDS for now due to possible gross hematuria per PCP Dispo: PCU for now, pt DNR/DNI but given UTI, high risk for delirium suspect pt will require significant nursing assistance, can down grade to med/surg when able DNR/DNI PCP: Lyubov Green, discussed with PCP regarding pt hospitalization Case discussed with the in detail and all of his questions were answered Will need placement and awaiting acceptance Discussed with the sister and the Admission and Anticipated Discharge Date Admission Date: February 28, 2023 Subjective 02/28/2023 The patient was seen and examined in telemetry unit She has been semiresponsive at home for the last 2 days Was admitted yesterday with change in mental status noted to have ESBL bacteremia Has been feeling a little better since admission 03/01/2023 The patient is seen and examined in telemetry unit in presence of the She remains hemodynamically stable but very confused Does not have any other distress 03/02/2023 The patient was seen and examined in telemetry unit She remains very confused Has wheezing and shortness of breath at rest and her blood pressure has been going up 03/03/2023 The patient was seen and examined in telemetry unit in presence of the She has been a little better today and out of bed on a chair She has been eating reasonably and trying to drink Will remains very confused 03/04/2023 The patient was seen and examined in telemetry unit in presence of the sister Today is the first time that she recognized me She communicated with me reasonably but is still remains pleasantly confused Denies any significant symptoms except weakness 03/05/2023 The patient was seen and examined in telemetry unit in presence of the and the sister She has been much better this morning Her confusion is intermittent She has been eating and drinking reasonably Review of Systems 2 Review of Systems: Unobtainable due to cognitive status Physical Exam Physical Exam: Lying in bed and remains pleasantly confused Constitutional: + ill appearing and average body habitus Eyes: PERRL, conjunctivae normal, anicteric sclerae ENMT: external ear and nose normal, oropharynx normal Neck: trachea midline, no thyromegaly Respiratory: + respiratory distress (Mild to moderate distress) Auscultation: lungs clear to auscultation bilaterally, + diminished lung sounds, + crackles and + wheezes Cardiovascular: Rate/Rhythm: regular rate and regular rhythm; not tachycardic Heart Sounds: normal S1 and normal S2; no murmur Extremities: no edema Gastrointestinal (Abdomen): Inspection/Auscultation: normal bowel sounds; abdomen not distended Percussion/Palpation: abdomen soft; abdomen nontender Musculoskeletal: No acute arthritis involving any joint Neurologic: normal touch/pain/proprioception and moves all extremities; no focal motor deficits Lymphatic: no cervical or axillary lymphadenopathy Results & Data Results & Data Vital Signs (Past 12 Hours) Vital Signs Temp Pulse Pulse Resp BP BP Pulse Ox 03/05/23 11:51 36.8 C 58 L 16 164/72 H 95 03/05/23 07:00 69 03/05/23 07:46 37.4 C 75 16 149/63 H 97 03/05/23 02:55 36.6 C 69 18 157/94 H 98 O2 Del Method 03/05/23 11:51 Room Air 03/05/23 07:00 03/05/23 07:46 Room Air 03/05/23 02:55 Room Air Laboratory Results Short CBC 03/05/23 Range/Units 05:23 WBC 9.25 (4.8-10.8) K/ul Hgb 10.3 L (12.0-16.0) g/dl Hct 30.7 L (37.0-47.0) % Plt Count 221 (130-400) K/uL [facility] 03/05/23 05:23 Sodium 142 Potassium 3.7 Chloride 114 H Carbon Dioxide 22 BUN 14 Creatinine 0.78 Glucose 97 Calcium 7.7 L Medications Administered Current Inpatient Medications Acetaminophen (Acetaminophen 325 Mg Tab) 650 mg PO Q4H PRN PRN Reason: pain/fever Stop: 03/29/23 16:44 Al Hydrox/Mg Hydrox/Simethicone (Aluminum/Magnesium Susp 30 Ml Udc) 30 ml PO Q6H PRN PRN Reason: Dyspepsia Stop: 03/29/23 16:44 Albuterol (Albuterol 0.083% Nebu Soln 3 Ml Vial) 2.5 mg NEB Q6R PRN; Protocol PRN Reason: Wheezing Stop: 04/01/23 14:54 Aspirin (Aspirin 81 Mg Ectab) 81 mg PO DAILY [facility] Stop: 04/03/23 08:59 Last Admin: 03/05/23 09:14 Dose: 81 mg Atorvastatin Calcium (Atorvastatin 20 Mg Tab) 20 mg PO DAILY [facility] Stop: 04/03/23 08:59 Last Admin: 03/05/23 09:14 Dose: 20 mg Calcium/Vitamin D (Calcium 600mg + Vit D 400 Iu Tab) 1 tab PO DAILY [facility] Stop: 04/03/23 08:59 Last Admin: 03/05/23 09:15 Dose: 1 tab Dextrose (Dextrose 50% 50 Ml Syringe) 25 - 50 ml IV UD PRN; Protocol PRN Reason: Hypoglycemia Protocol Stop: 03/29/23 16:44 Ferrous Sulfate (Ferrous Sulfate 325 Mg Tab) 325 mg PO DAILY [facility] Stop: 04/03/23 08:59 Last Admin: 03/05/23 09:14 Dose: 325 mg Glucagon (Glucagon For Inj 1 Mg Vial) 1 mg SQ UD PRN; Protocol PRN Reason: Hypoglycemia Protocol Stop: 03/29/23 16:44 Glucose (Glucose 10 Tab/Tube) 4 - 8 tab PO UD PRN; Protocol PRN Reason: Hypoglycemia Treatment Stop: 03/29/23 16:44 Glucose (Glucose 40% Gel 15 Gm Tube) 15 - 30 gm PO UD PRN; Protocol PRN Reason: Hypoglycemia Protocol Stop: 03/29/23 16:44 Heparin Sodium (Porcine) (Heparin Sod 5,000 Unit/0.5 Ml Vial) 5,000 units SQ Q12 [facility] Stop: 03/31/23 20:59 Last Admin: 03/05/23 09:15 Dose: 5,000 units Potassium Chloride/Sodium Chloride (Normal Saline W/20 Meq Kcl) 20 meq in 1,000 mls @ 75 mls/hr IV .[id number] [facility]; Protocol Stop: 03/29/23 16:59 Last Admin: 03/05/23 05:22 Dose: 75 mls/hr Ertapenem 1,000 mg/ Syringe 10 mls @ 2 mls/min IV Q24H [facility] Stop: 03/14/23 10:29 Last Admin: 03/05/23 12:41 Dose: 2 mls/min Insulin Aspart (Insulin Aspart Per Unit Charge) 0 units SC ACHS [facility] Stop: 03/29/23 17:59 Last Admin: 03/05/23 09:11 Dose: Not Given Insulin Glargine (Lantus Per Unit Charge) 0 - 6 units SQ BID [facility] Stop: 03/29/23 20:59 Last Admin: 03/05/23 09:16 Dose: Not Given Lactobacillus Acidophilus (Advanced Probiotic 1250 Mg Capsule) 2 cap PO DAILY [facility] Stop: 03/29/23 16:44 Last Admin: 03/05/23 09:14 Dose: 2 cap Loperamide HCl (Loperamide Hcl 2 Mg Cap) 2 mg PO Q3H PRN PRN Reason: Diarrhea Stop: 04/02/23 13:30 Magnesium Hydroxide (Magnesium Hydroxide Susp 30 Ml Udc) 30 ml PO Q6H PRN PRN Reason: Constipation Stop: 03/29/23 16:44 Metoprolol Succinate (Metoprolol Succ 25mg Ext Rel Tab) 25 mg PO QAM [facility] Stop: 04/02/23 13:29 Last Admin: 03/05/23 09:13 Dose: 25 mg Miscellaneous (Carbohydrates For Hypoglycemia ) 15 - 30 gm PO UD PRN PRN Reason: Hypoglycemia Protocol Stop: 03/29/23 16:44 Ondansetron HCl (Ondansetron Inj 2 Mg/Ml 2 Ml Vial) 4 mg IV Q6H PRN PRN Reason: Nausea Stop: 03/29/23 16:44 Polyethylene Glycol (Polyethylene (Miralax) 17 Gm Pack) 17 gm PO DAILY PRN PRN Reason: Constipation Stop: 03/29/23 16:44 Sertraline HCl (Sertraline Hcl 50 Mg Tablet) 50 mg PO DAILY [facility] Stop: 04/03/23 08:59 Last Admin: 03/05/23 09:13 Dose: 50 mg Vitamin D (Cholecalciferol 1,000 Units 25 Mcg Tab) 1,000 units PO DAILY [facility] Stop: 04/03/23 08:59 Last Admin: 03/05/23 09:14 Dose: 1,000 units (2) UTI (urinary tract infection) Hematuria presence: without hematuria Urinary tract infection type: acute cystitis Qualified Code(s): N30.00 - Acute cystitis without hematuria
[2023-03-05] MEDS: ERTAPENEM SODIUM 1,000 MG in SYRINGE 0 ML IV SCH (12:41)
[2023-03-05] MEDS ORDERED: LORazepam 2 MG/1 ML VIAL IV STA (23:47)
[2023-03-06] MEDS ORDERED: NITROGLYCERIN 2% OINTMENT 30GM TUBE EXT STA (08:06)
[2023-03-06] MEDS: ASPIRIN 81 MG ECTAB PO SCH (08:14)
[2023-03-06] MEDS: SERTRALINE HCL 50 MG TABLET PO SCH (08:15)
[2023-03-06] MEDS: CALCIUM 600MG + VIT D 400 IU TAB PO SCH (08:15)
[2023-03-06] MEDS: ADVANCED PROBIOTIC 1250 MG CAPSULE PO SCH (08:15)
[2023-03-06] MEDS: HEPARIN SOD 5,000 UNIT/0.5 ML VIAL SQ SCH ×2 (08:15→19:43)
[2023-03-06] MEDS: CHOLECALCIFEROL 1,000 UNITS 25 MCG TAB PO SCH (08:15)
[2023-03-06] MEDS: FERROUS SULFATE 325 MG TAB PO SCH (08:15)
[2023-03-06] MEDS: ATORVASTATIN 20 MG TAB PO SCH (08:15)
[2023-03-06] MEDS: INSULIN ASPART PER UNIT CHARGE SC SCH ×4 (08:16→22:34)
[2023-03-06] MEDS: LANTUS PER UNIT CHARGE SQ SCH ×2 (08:16→22:33)
[2023-03-06] MEDS: METOPROLOL SUCC 50MG EXT REL TAB PO SCH ×2 (09:13→19:45)
[2023-03-06] MEDS: ERTAPENEM SODIUM 1,000 MG in SYRINGE 0 ML IV SCH (10:55)
[2023-03-06] MEDS ORDERED: MELATONIN 3 MG TAB PO PRN (13:23)
--- NOTE | 2023-03-06 14:08 | Hospitalist Progress Note ---
Date of Service March 06, 2023 Assessment & Plan (1) Sepsis: Plan: Presented with increasing confusion, high white count and tachycardia Sepsis POA Secondary to UTI with ESBL Treatment is as below Clinically much better and repeat blood cultures have been negative No more signs and or symptoms of infection Noted to have wheezing with more shortness of breath Speech evaluation done to rule out possibility of aspiration Chest x-ray did not show mild congestive changes We will give 40 mg of IV Lasix Start nebulized bronchodilator Minimal to no wheezing and no shortness of breath No shortness of breath at rest and has been saturating normally on room air (2) UTI (urinary tract infection): Plan: This is a 72-year-old female who has significant past medical history of T2DM, HTN, HLD, CKD stage III and dementia who presents to ED secondary to mental status change and responsiveness x2 days. Patient has picture of infectious metabolic encephalopathy likely in setting of UTI. At this time she technically does not meet criteria for sepsis Metabolic infectious encephalopathy UTI-ESBL UTI Noted to be semiconscious for the last 2 days at home Urine culture came back positive for ESBL and blood culture came back positive for the same Started with IV Rocephin and changed this morning to ertapenem IV fluid NSS plus KCl Alert and awake though pleasantly confused Clears has been started and will advance as tolerated Discussed with the PT and OT evaluation-Will need rehab placement White count is improving We will continue antibiotic intravenously for about 14 days Has been having diarrhea-we will check a stool for any C. difficile and try Imodium Clinically better and symptomatically better Repeat blood cultures are pending Clinically she has been stable As above continue with current antibiotic of ertapenem for a total of 14 days (3) T2DM (type 2 diabetes mellitus): (4) HTN (hypertension): Plan: Hypertension Controlled as outpatient on lisinopril, metoprolol and hydrochlorothiazide We will hold for now given cognition, once improves recommend resumption of home meds Blood pressure has been elevated Will start metoprolol 5 mg every 6 hourly regularly We will restart her usual oral medications for blood pressure Her blood pressure medications have been restarted Blood pressure noted to very high this morning of systolic more than 200 Received MTP and metoprolol has been increased to 50 mg twice daily (5) HLD (hyperlipidemia): (6) Dementia with behavioral disturbance: Plan: Dementia with behavioral disturbance Following neurology Discussed case with patient's PCP Dr. Green Worsening mental status in the last 4 months and currently undergoing further work-up and likely [facility] psych Dr. Green recommends MRI brain when patient able to tolerate Recently trialed Seroquel as outpatient and did not tolerate due to restlessness, per PCP patient tends to get agitation and restlessness in afternoon Remains confused and has history of dementia as above Has history of dementia which has been worsening for the last 2 years Dementia has been worsening in general Dementia has been worsening for the last 2 years or so Remains pleasantly confused and is a little better from profound confusion until today As above (7) CKD (chronic kidney disease), stage III: Plan: CKD stage III Baseline creatinine 1.0-1.1 Avoid nephrotoxic agents, renal function at baseline Monitor-creatinine has been normal but sodium is 148 due to dehydration Advised to drink more fluid Kidney function is normalized Plan Elevated troponin likely demand ischema in setting of infection will trend trops, repeat ecg consider echo if significant trop elevation-serial troponins are unremarkable for any ACS No cardiac symptoms and awaiting echo as ordered T2DM Controlled on outpatient regimen, last A1c 7.07 February 2023 Hold Jardiance and glipizide Has been on sliding scale insulin coverage Gross hematuria Per discussion with Dr. Green currently undergoing work-up as outpatient due to hematuria noted on UTI Patient was to have a bladder renal ultrasound today as outpatient, but got canceled secondary to hospitalization We will consider ultrasound once encephalopathy resolves Will monitor-does not seem to have any more hematuria DVT prophylaxis: will do SCDS for now due to possible gross hematuria per PCP Dispo: PCU for now, pt DNR/DNI but given UTI, high risk for delirium suspect pt will require significant nursing assistance, can down grade to med/surg when able DNR/DNI PCP: Lyubov Green, discussed with PCP regarding pt hospitalization Case discussed with the in detail and all of his questions were answered Will need placement and awaiting acceptance Discussed with the sister and the Discussed with the son and the Admission and Anticipated Discharge Date Admission Date: February 28, 2023 Subjective 02/28/2023 The patient was seen and examined in telemetry unit She has been semiresponsive at home for the last 2 days Was admitted yesterday with change in mental status noted to have ESBL bacteremia Has been feeling a little better since admission 03/01/2023 The patient is seen and examined in telemetry unit in presence of the She remains hemodynamically stable but very confused Does not have any other distress 03/02/2023 The patient was seen and examined in telemetry unit She remains very confused Has wheezing and shortness of breath at rest and her blood pressure has been going up 03/03/2023 The patient was seen and examined in telemetry unit in presence of the She has been a little better today and out of bed on a chair She has been eating reasonably and trying to drink Will remains very confused 03/04/2023 The patient was seen and examined in telemetry unit in presence of the sister Today is the first time that she recognized me She communicated with me reasonably but is still remains pleasantly confused Denies any significant symptoms except weakness 03/05/2023 The patient was seen and examined in telemetry unit in presence of the and the sister She has been much better this morning Her confusion is intermittent She has been eating and drinking reasonably 03/06/2023 The patient was seen and examined in medical telemetry unit in presence of the and the son The patient has been stable with occasional worsening delirium All of their questions have been answered We will get more physical therapy and frequent visits from nursing staff Review of Systems Review of Systems: All systems reviewed and are unremarkable except as noted below Physical Exam Physical Exam: Lying in bed and remains pleasantly confused Constitutional: + ill appearing and average body habitus Eyes: PERRL, conjunctivae normal, anicteric sclerae ENMT: external ear and nose normal, oropharynx normal Neck: trachea midline, no thyromegaly Respiratory: + respiratory distress (Mild to moderate distress) Au scultation: lungs clear to auscultation bilaterally, + diminished lung sounds, + crackles and + wheezes Cardiovascular: Rate/Rhythm: regular rate and regular rhythm; not tachycardic Heart Sounds: normal S1 and normal S2; no murmur Extremities: no edema Gastrointestinal (Abdomen): Inspection/Auscultation: normal bowel sounds; abdomen not distended Percussion/Palpation: abdomen soft; abdomen nontender Musculoskeletal: No acute arthritis involving any joint Neurologic: normal touch/pain/proprioception and moves all extremities; no focal motor deficits Lymphatic: no cervical or axillary lymphadenopathy Results & Data Results & Data Vital Signs (Past 12 Hours) Vital Signs Temp Pulse Pulse Resp BP Pulse Ox O2 Del Method 03/06/23 13:04 Room Air 03/06/23 12:14 37.1 C 73 19 118/63 93 Room Air 03/06/23 08:33 173/77 H 03/06/23 08:02 37 C 100 H 19 221/119 H 95 Room Air 03/06/23 07:50 63 03/06/23 03:00 36.8 C 67 16 135/87 96 Room Air Medications Administered Current Inpatient Medications Acetaminophen (Acetaminophen 325 Mg Tab) 650 mg PO Q4H PRN PRN Reason: pain/fever Stop: 03/29/23 16:44 Al Hydrox/Mg Hydrox/Simethicone (Aluminum/Magnesium Susp 30 Ml Udc) 30 ml PO Q6H PRN PRN Reason: Dyspepsia Stop: 03/29/23 16:44 Albuterol (Albuterol 0.083% Nebu Soln 3 Ml Vial) 2.5 mg NEB Q6R PRN; Protocol PRN Reason: Wheezing Stop: 04/01/23 14:54 Aspirin (Aspirin 81 Mg Ectab) 81 mg PO DAILY YASHIRA Stop: 04/03/23 08:59 Last Admin: 03/06/23 08:14 Dose: 81 mg Atorvastatin Calcium (Atorvastatin 20 Mg Tab) 20 mg PO DAILY YASHIRA Stop: 04/03/23 08:59 Last Admin: 03/06/23 08:15 Dose: 20 mg Calcium/Vitamin D (Calcium 600mg + Vit D 400 Iu Tab) 1 tab PO DAILY YASHIRA Stop: 04/03/23 08:59 Last Admin: 03/06/23 08:15 Dose: 1 tab Dextrose (Dextrose 50% 50 Ml Syringe) 25 - 50 ml IV UD PRN; Protocol PRN Reason: Hypoglycemia Protocol Stop: 03/29/23 16:44 Ferrous Sulfate (Ferrous Sulfate 325 Mg Tab) 325 mg PO DAILY YASHIRA Stop: 04/03/23 08:59 Last Admin: 03/06/23 08:15 Dose: 325 mg Glucagon (Glucagon For Inj 1 Mg Vial) 1 mg SQ UD PRN; Protocol PRN Reason: Hypoglycemia Protocol Stop: 03/29/23 16:44 Glucose (Glucose 10 Tab/Tube) 4 - 8 tab PO UD PRN; Protocol PRN Reason: Hypoglycemia Treatment Stop: 03/29/23 16:44 Glucose (Glucose 40% Gel 15 Gm Tube) 15 - 30 gm PO UD PRN; Protocol PRN Reason: Hypoglycemia Protocol Stop: 03/29/23 16:44 Heparin Sodium (Porcine) (Heparin Sod 5,000 Unit/0.5 Ml Vial) 5,000 units SQ Q1 2 YASHIRA Stop: 03/31/23 20:59 Last Admin: 03/06/23 08:15 Dose: 5,000 units Ertapenem 1,000 mg/ Syringe 10 mls @ 2 mls/min IV Q24H YASHIRA Stop: 03/14/23 10:29 Last Admin: 03/06/23 10:55 Dose: 2 mls/min Insulin Aspart (Insulin Aspart Per Unit Charge) 0 units SC ACHS YASHIRA Stop: 03/29/23 17:59 Last Admin: 03/06/23 12:50 Dose: Not Given Insulin Glargine (Lantus Per Unit Charge) 0 - 6 units SQ BID YASHIRA Stop: 03/29/23 20:59 Last Admin: 03/06/23 08:16 Dose: Not Given Lactobacillus Acidophilus (Advanced Probiotic 1250 Mg Capsule) 2 cap PO DAILY YASHIRA Stop: 03/29/23 16:44 Last Admin: 03/06/23 08:15 Dose: 2 cap Loperamide HCl (Loperamide Hcl 2 Mg Cap) 2 mg PO Q3H PRN PRN Reason: Diarrhea Stop: 04/02/23 13:30 Magnesium Hydroxide (Magnesium Hydroxide Susp 30 Ml Udc) 30 ml PO Q6H PRN PRN Reason: Constipation Stop: 03/29/23 16:44 Melatonin (Melatonin 3 Mg Tab) 3 mg PO HS PRN PRN Reason: Sleep Stop: 04/05/23 13:22 Metoprolol Succinate (Metoprolol Succ 50mg Ext Rel Tab) 50 mg PO BID YASHIRA Stop: 04/05/23 08:59 Last Admin: 03/06/23 09:13 Dose: 50 mg Miscellaneous (Carbohydrates For Hypoglycemia ) 15 - 30 gm PO UD PRN PRN Reason: Hypoglycemia Protocol Stop: 03/29/23 16:44 Ondansetron HCl (Ondansetron Inj 2 Mg/Ml 2 Ml Vial) 4 mg IV Q6H PRN PRN Reason: Nausea Stop: 03/29/23 16:44 Polyethylene Glycol (Polyethylene (Miralax) 17 Gm Pack) 17 gm PO DAILY PRN PRN Reason: Constipation Stop: 03/29/23 16:44 Sertraline HCl (Sertraline Hcl 50 Mg Tablet) 50 mg PO DAILY [facility] Stop: 04/03/23 08:59 Last Admin: 03/06/23 08:15 Dose: 50 mg Vitamin D (Cholecalciferol 1,000 Units 25 Mcg Tab) 1,000 units PO DAILY [facility] Stop: 04/03/23 08:59 Last Admin: 03/06/23 08:15 Dose: 1,000 units (2) UTI (urinary tract infection) Hematuria presence: without hematuria Urinary tract infection type: acute cystitis Qualified Code(s): N30.00 - Acute cystitis without hematuria
--- NOTE | 2023-03-06 19:36 | Magnetic Resonance Report ---
MR brain wo con HISTORY: 72 years-old Female R/O Stroke/mass acute strokelike symptoms COMPARISON: Head CT 02/27/2023 TECHNIQUE: Multiplanar multisequence MRI of the brain was obtained without the use of IV contrast. FINDINGS: Motion degraded exam. No restricted diffusion. Midline structures appear unremarkable. Degenerative c hanges of the cervical spine. No acute intracranial hemorrhage, midline shift, abnormal extra-axial c ollection, or intracranial mass. No pathologic blooming artifact. Involutional changes with ventricul omegaly noted. Moderate T2/FLAIR hyperintense foci throughout the white matter. Cerebral venous sinuses and major arterial flow voids appear patent. Skull, orbits and soft tissues a re unremarkable. IMPRESSION: 1. Motion degraded exam. No acute or subacute infarct. 2. Involutional changes with ventriculomegaly, likely on an ex vacuo basis. 3. Moderate chronic microvascular ischemic disease. ACT 112: Negative or not required by law. The above report was generated using voice recognition software. It may contain grammatical, syntax o r spelling errors. Electronically signed by: Frederick Pimentel M.D. 03/06/2023 7:34 PM
[2023-03-07] MEDS ORDERED: LORazepam 2 MG/1 ML VIAL IV STA (01:49)
[2023-03-07 06:43] LABS: Basophils # (auto) 0.06 K/uL (0-0.2); Basophils % (auto) 0.6 %; Eosinophils # (auto) 0.56 K/uL (0-0.50); Eosinophils % (auto) 5.5 %; Hematocrit (blood only) 33.7 % (37.0-47.0); Hemoglobin 11.1 g/dl (12.0-16.0); Immature Granulocytes # (auto) 0.24 K/uL (0.01-0.20); Immature Granulocytes % (auto) 2.4 %; Lymphocytes # (auto) 1.83 K/uL (1.2-3.4); Lymphocytes % (auto) 18.1 %; Mean Corpuscular Hemoglobin 28.9 pg (25.0-34.0); Mean Corpuscular Hgb Conc 32.9 g/dL (32.0-36.0); Mean Corpuscular Volume 87.8 fL (80.0-100.0); Mean Platelet Volume 10.6 fL (9.4-12.4); Monocytes # (auto) 0.69 K/uL (0.11-0.59); Monocytes % (auto) 6.8 %; Neutrophils # (auto) 6.73 K/uL (1.40-6.50); Neutrophils % (auto) 66.6 %; Platelet Count 280 K/uL (130-400); RDW Coefficient of Variation 13.3 % (11.5-14.5); RDW Standard Deviation 42.4 fL (36.4-46.3); Red Blood Count 3.84 M/uL (4.20-5.40); White Blood Count 10.11 K/ul (4.8-10.8)
[2023-03-07 06:56] LABS: BUN Creatinine Ratio 12.2 (10-20); Calcium 8.2 mg/dl (8.6-10.3); Est GFR (African American) 81.7 ml/min; Est GFR (Non-African American) 70.5 ml/min; Potassium 3.9 mmol/L (3.5-5.1)
[2023-03-07] MEDS: ATORVASTATIN 20 MG TAB PO SCH (08:28)
[2023-03-07] MEDS: SERTRALINE HCL 50 MG TABLET PO SCH (08:28)
[2023-03-07] MEDS: ADVANCED PROBIOTIC 1250 MG CAPSULE PO SCH (08:28)
[2023-03-07] MEDS: METOPROLOL SUCC 50MG EXT REL TAB PO SCH ×2 (08:28→20:03)
[2023-03-07] MEDS: FERROUS SULFATE 325 MG TAB PO SCH (08:28)
[2023-03-07] MEDS: ASPIRIN 81 MG ECTAB PO SCH (08:29)
[2023-03-07] MEDS: CALCIUM 600MG + VIT D 400 IU TAB PO SCH (08:29)
[2023-03-07] MEDS: HEPARIN SOD 5,000 UNIT/0.5 ML VIAL SQ SCH ×2 (08:29→20:02)
[2023-03-07] MEDS: CHOLECALCIFEROL 1,000 UNITS 25 MCG TAB PO SCH (08:29)
[2023-03-07] MEDS: LANTUS PER UNIT CHARGE SQ SCH ×2 (09:25→21:14)
[2023-03-07] MEDS: INSULIN ASPART PER UNIT CHARGE SC SCH ×4 (09:25→21:14)
[2023-03-07] MEDS: ERTAPENEM SODIUM 1,000 MG in SYRINGE 0 ML IV SCH (10:10)
--- NOTE | 2023-03-07 13:27 | Hospitalist Progress Note ---
Date of Service March 07, 2023 Assessment & Plan (1) Sepsis: Plan: Presented with increasing confusion, high white count and tachycardia Sepsis POA Secondary to UTI with ESBL Treatment is as below Clinically much better and repeat blood cultures have been negative No more signs and or symptoms of infection We will finish the course of antibiotic on discharge Noted to have wheezing with more shortness of breath Speech evaluation done to rule out possibility of aspiration Chest x-ray did not show mild congestive changes We will give 40 mg of IV Lasix Start nebulized bronchodilator Minimal to no wheezing and no shortness of breath No shortness of breath at rest and has been saturating normally on room air No more wheezing and no shortness of breath (2) UTI (urinary tract infection): Plan: This is a 72-year-old female who has significant past medical history of T2DM, HTN, HLD, CKD stage III and dementia who presents to ED secondary to mental status change and responsiveness x2 days. Patient has picture of infectious metabolic encephalopathy likely in setting of UTI. At this time she technically does not meet criteria for sepsis Metabolic infectious encephalopathy UTI-ESBL UTI Noted to be semiconscious for the last 2 days at home Urine culture came back positive for ESBL and blood culture came back positive for the same Started with IV Rocephin and changed this morning to ertapenem IV fluid NSS plus KCl Alert and awake though pleasantly confused Clears has been started and will advance as tolerated Discussed with the PT and OT evaluation-Will need rehab placement White count is improving We will continue antibiotic intravenously for about 14 days Has been having diarrhea-we will check a stool for any C. difficile and try Imodium Clinically better and symptomatically better Repeat blood cultures are pending Clinically she has been stable As above continue with current antibiotic of ertapenem for a total of 14 days (3) Dementia with behavioral disturbance: Plan: Dementia with behavioral disturbance Following neurology Discussed case with patient's PCP Dr. Green Worsening mental status in the last 4 months and currently undergoing further work-up and likely [facility] psych Dr. Green recommends MRI brain when patient able to tolerate Recently trialed Seroquel as outpatient and did not tolerate due to restlessness, per PCP patient tends to get agitation and restlessness in afternoon Remains confused and has history of dementia as above Has history of dementia which has been worsening for the last 2 years Dementia has been worsening in general Dementia has been worsening for the last 2 years or so Remains pleasantly confused and is a little better from profound confusion until today MRI of the head without contrast showed advanced microvascular changes, dilation of the ventricles, no acute intracranial hemorrhage, midline shift, abnormal extra axial collection or intracranial mass Prior MRI in the epic showed microvascular changes as well (4) T2DM (type 2 diabetes mellitus): (5) HTN (hypertension): Plan: Hypertension Controlled as outpatient on lisinopril, metoprolol and hydrochlorothiazide We will hold for now given cognition, once improves recommend resumption of home meds Blood pressure has been elevated Will start metoprolol 5 mg every 6 hourly regularly We will restart her usual oral medications for blood pressure Her blood pressure medications have been restarted Blood pressure noted to very high this morning of systolic more than 200 Received MTP and metoprolol has been increased to 50 mg twice daily Blood pressure seems to be controlled as of now (6) HLD (hyperlipidemia): (7) CKD (chronic kidney disease), stage III: Plan: CKD stage III Baseline creatinine 1.0-1.1 Avoid nephrotoxic agents, renal function at baseline Monitor-creatinine has been normal but sodium is 148 due to dehydration Advised to drink more fluid Kidney function is normalized Plan Elevated troponin likely demand ischema in setting of infection will trend trops, repeat ecg consider echo if significant trop elevation-serial troponins are unremarkable for any ACS No cardiac symptoms and awaiting echo as ordered T2DM Controlled on outpatient regimen, last A1c 7.07 February 2023 Hold Jardiance and glipizide Has been on sliding scale insulin coverage Gross hematuria Per discussion with Dr. Green currently undergoing work-up as outpatient due to hematuria noted on UTI Patient was to have a bladder renal ultrasound today as outpatient, but got canceled secondary to hospitalization We will consider ultrasound once encephalopathy resolves Will monitor-does not seem to have any more hematuria DVT prophylaxis: will do SCDS for now due to possible gross hematuria per PCP Dispo: PCU for now, pt DNR/DNI but given UTI, high risk for delirium suspect pt will require significant nursing assistance, can down grade to med/surg when able DNR/DNI PCP: Lyubov Green, discussed with PCP regarding pt hospitalization Case discussed with the in detail and all of his questions were answered Will need placement and awaiting acceptance Discussed with the sister and the Discussed with the son and the Admission and Anticipated Discharge Date Admission Date: February 28, 2023 Subjective 02/28/2023 The patient was seen and examined in telemetry unit She has been semiresponsive at home for the last 2 days Was admitted yesterday with change in mental status noted to have ESBL bacteremia Has been feeling a little better since admission 03/01/2023 The patient is seen and examined in telemetry unit in presence of the She remains hemodynamically stable but very confused Does not have any other distress 03/02/2023 The patient was seen and examined in telemetry unit She remains very confused Has wheezing and shortness of breath at rest and her blood pressure has been going up 03/03/2023 The patient was seen and examined in telemetry unit in presence of the She has been a little better today and out of bed on a chair She has been eating reasonably and trying to drink Will remains very confused 03/04/2023 The patient was seen and examined in telemetry unit in presence of the sister Today is the first time that she recognized me She communicated with me reasonably but is still remains pleasantly confused Denies any significant symptoms except weakness 03/05/2023 The patient was seen and examined in telemetry unit in presence of the and the sister She has been much better this morning Her confusion is intermittent She has been eating and drinking reasonably 03/06/2023 The patient was seen and examined in medical telemetry unit in presence of the and the son The patient has been stable with occasional worsening delirium All of their questions have been answered We will get more physical therapy and frequent visits from nursing staff 03/07/2023 The patient was seen and examined in medical telemetry unit in presence of the She was noted to be acutely confused last night and required 1 dose of intravenous Ativan She remains sleepy this morning but during examination in the afternoon she was awake Remains very confused Review of Systems Review of Systems: Unobtainable due to cognitive status Physical Exam Physical Exam: Lying in bed and remains pleasantly confused Constitutional: + ill appearing and average body habitus Eyes: PERRL, conjunctivae normal, anicteric sclerae ENMT: external ear and nose normal, oropharynx normal Neck: trachea midline, no thyromegaly Respiratory: + respiratory distress (Mild to moderate distress) Auscultation: lungs clear to auscultation bilaterally, + diminished lung sounds, + crackles and + wheezes Cardiovascular: Rate/Rhythm: regular rate and regular rhythm; not tachycardic Heart Sounds: normal S1 and normal S2; no murmur Extremities: no edema Gastrointestinal (Abdomen): Inspection/Auscultation: normal bowel sounds; abdomen not distended Percussion/Palpation: abdomen soft; abdomen nontender Musculoskeletal: No acute arthritis involving any joint Neurologic: normal touch/pain/proprioception and moves all extremities; no focal motor deficits Lymphatic: no cervical or axillary lymphadenopathy Results & Data Results & Data Vital Signs (Past 12 Hours) Vital Signs Temp Pulse Pulse Resp BP BP Pulse Ox 03/07/23 08:32 36.4 C L 70 18 134/68 93 03/07/23 11:22 03/07/23 07:13 71 03/07/23 03:51 37.8 C H 74 18 144/57 H 94 O2 Del Method 03/07/23 08:32 Room Air 03/07/23 11:22 Room Air 03/07/23 07:13 03/07/23 03:51 Room Air Laboratory Results Short CBC 03/07/23 Range/Units 05:45 WBC 10.11 (4.8-10.8) K/ul Hgb 11.1 L (12.0-16.0) g/dl Hct 33.7 L (37.0-47.0) % Plt Count 280 (130-400) K/uL BMP 03/07/23 05:45 Sodium 142 Potassium 3.9 Chloride 109 H Carbon Dioxide 27 BUN 10 Creatinine 0.82 Glucose 97 Calcium 8.2 L Medications Administered Current Inpatient Medications Acetaminophen (Acetaminophen 325 Mg Tab) 650 mg PO Q4H PRN PRN Reason: pain/fever Stop: 03/29/23 16:44 Al Hydrox/Mg Hydrox/Simethicone (Aluminum/Magnesium Susp 30 Ml Udc) 30 ml PO Q6H PRN PRN Reason: Dyspepsia Stop: 03/29/23 16:44 Albuterol (Albuterol 0.083% Nebu Soln 3 Ml Vial) 2.5 mg NEB Q6R PRN; Protocol PRN Reason: Wheezing Stop: 04/01/23 14:54 Aspirin (Aspirin 81 Mg Ectab) 81 mg PO DAILY YASHIRA Stop: 04/03/23 08:59 Last Admin: 03/07/23 08:29 Dose: 81 mg Atorvastatin Calcium (Atorvastatin 20 Mg Tab) 20 mg PO DAILY [facility] Stop: 04/03/23 08:59 Last Admin: 03/07/23 08:28 Dose: 20 mg Calcium/Vitamin D (Calcium 600mg + Vit D 400 Iu Tab) 1 tab PO DAILY YASHIRA Stop: 04/03/23 08:59 Last Admin: 03/07/23 08:29 Dose: 1 tab Dextrose (Dextrose 50% 50 Ml Syringe) 25 - 50 ml IV UD PRN; Protocol PRN Reason: Hypoglycemia Protocol Stop: 03/29/23 16:44 Ferrous Sulfate (Ferrous Sulfate 325 Mg Tab) 325 mg PO DAILY YASHIRA Stop: 04/03/23 08:59 Last Admin: 03/07/23 08:28 Dose: 325 mg Glucagon (Glucagon For Inj 1 Mg Vial) 1 mg SQ UD PRN; Protocol PRN Reason: Hypoglycemia Protocol Stop: 03/29/23 16:44 Glucose (Glucose 10 Tab/Tube) 4 - 8 tab PO UD PRN; Protocol PRN Reason: Hypoglycemia Treatment Stop: 03/29/23 16:44 Glucose (Glucose 40% Gel 15 Gm Tube) 15 - 30 gm PO UD PRN; Protocol PRN Reason: Hypoglycemia Protocol Stop: 03/29/23 16:44 Heparin Sodium (Porcine) (Heparin Sod 5,000 Unit/0.5 Ml Vial) 5,000 units SQ Q12 YASHIRA Stop: 03/31/23 20:59 Last Admin: 03/07/23 08:29 Dose: 5,000 units Ertapenem 1,000 mg/ Syringe 10 mls @ 2 mls/min IV Q24H YASHIRA Stop: 03/14/23 10:29 Last Admin: 03/07/23 10:10 Dose: 2 mls/min Insulin Aspart (Insulin Aspart Per Unit Charge) 0 units SC ACHS YASHIRA Stop: 03/29/23 17:59 Last Admin: 03/07/23 12:10 Dose: Not Given Insulin Glargine (Lantus Per Unit Charge) 0 - 6 units SQ BID YASHIRA Stop: 03/29/23 20:59 Last Admin: 03/07/23 09:25 Dose: Not Given Lactobacillus Acidophilus (Advanced Probiotic 1250 Mg Capsule) 2 cap PO DAILY YASHIRA Stop: 03/29/23 16:44 Last Admin: 03/07/23 08:28 Dose: 2 cap Loperamide HCl (Loperamide Hcl 2 Mg Cap) 2 mg PO Q3H PRN PRN Reason: Diarrhea Stop: 04/02/23 13:30 Magnesium Hydroxide (Magnesium Hydroxide Susp 30 Ml Udc) 30 ml PO Q6H PRN PRN Reason: Constipation Stop: 03/29/23 16:44 Melatonin (Melatonin 3 Mg Tab) 3 mg PO HS PRN PRN Reason: Sleep Stop: 04/05/23 13:22 Metoprolol Succinate (Metoprolol Succ 50mg Ext Rel Tab) 50 mg PO BID YASHIRA Stop: 04/05/23 08:59 Last Admin: 03/07/23 08:28 Dose: 50 mg Miscellaneous (Carbohydrates For Hypoglycemia ) 15 - 30 gm PO UD PRN PRN Reason: Hypoglycemia Protocol Stop: 03/29/23 16:44 Ondansetron HCl (Ondansetron Inj 2 Mg/Ml 2 Ml Vial) 4 mg IV Q6H PRN PRN Reason: Nausea Stop: 03/29/23 16:44 Polyethylene Glycol (Polyethylene (Miralax) 17 Gm Pack) 17 gm PO DAILY PRN PRN Reason: Constipation Stop: 03/29/23 16:44 Sertraline HCl (Sertraline Hcl 50 Mg Tablet) 50 mg PO DAILY YASHIRA Stop: 04/03/23 08:59 Last Admin: 03/07/23 08:28 Dose: 50 mg Vitamin D (Cholecalciferol 1,000 Units 25 Mcg Tab) 1,000 units PO DAILY YASHIRA Stop: 04/03/23 08:59 Last Admin: 03/07/23 08:29 Dose: 1,000 units (2) UTI (urinary tract infection) Hematuria presence: without hematuria Urinary tract infection type: acute cystitis Qualified Code(s): N30.00 - Acute cystitis without hematuria
[2023-03-07] MEDS: SODIUM CHLORIDE 0.9% 1000ML 1,000 ML IV SCH (17:36)
[2023-03-07] MEDS ORDERED: OLANZapine 10 MG/2.1 ML SDV IM PRN (20:29)
[2023-03-07] MEDS ORDERED: OLANZapine 10 MG/2.1 ML SDV IM STA (20:31)
[2023-03-08] MEDS: SODIUM CHLORIDE 0.9% 1000ML 1,000 ML IV SCH (05:15)
[2023-03-08 06:57] LABS: Basophils # (auto) 0.07 K/uL (0-0.2); Basophils % (auto) 0.7 %; Eosinophils # (auto) 0.55 K/uL (0-0.50); Eosinophils % (auto) 5.6 %; Hemoglobin 11.6 g/dl (12.0-16.0); Immature Granulocytes # (auto) 0.21 K/uL (0.01-0.20); Immature Granulocytes % (auto) 2.1 %; Lymphocytes # (auto) 1.68 K/uL (1.2-3.4); Mean Corpuscular Hemoglobin 29.2 pg (25.0-34.0); Mean Corpuscular Hgb Conc 33.1 g/dL (32.0-36.0); Mean Corpuscular Volume 88.2 fL (80.0-100.0); Mean Platelet Volume 10.1 fL (9.4-12.4); Monocytes # (auto) 0.59 K/uL (0.11-0.59); Neutrophils # (auto) 6.79 K/uL (1.40-6.50); Neutrophils % (auto) 68.6 %; Platelet Count 279 K/uL (130-400); RDW Coefficient of Variation 13.3 % (11.5-14.5); RDW Standard Deviation 42.8 fL (36.4-46.3); Red Blood Count 3.97 M/uL (4.20-5.40); White Blood Count 9.89 K/ul (4.8-10.8)
[2023-03-08 07:16] LABS: BUN Creatinine Ratio 11.5 (10-20); Creatinine Clr Calc Pharmacy 54.6 ml/min; Est GFR (African American) 86.8 ml/min; Est GFR (Non-African American) 74.9 ml/min; Potassium 4.1 mmol/L (3.5-5.1)
[2023-03-08] MEDS: ADVANCED PROBIOTIC 1250 MG CAPSULE PO SCH (08:17)
[2023-03-08] MEDS: SERTRALINE HCL 50 MG TABLET PO SCH (08:17)
[2023-03-08] MEDS: HEPARIN SOD 5,000 UNIT/0.5 ML VIAL SQ SCH ×2 (08:17→21:07)
[2023-03-08] MEDS: ASPIRIN 81 MG ECTAB PO SCH (08:17)
[2023-03-08] MEDS: CALCIUM 600MG + VIT D 400 IU TAB PO SCH (08:17)
[2023-03-08] MEDS: ATORVASTATIN 20 MG TAB PO SCH (08:17)
[2023-03-08] MEDS: METOPROLOL SUCC 50MG EXT REL TAB PO SCH ×2 (08:17→20:19)
[2023-03-08] MEDS: FERROUS SULFATE 325 MG TAB PO SCH (08:17)
[2023-03-08] MEDS: CHOLECALCIFEROL 1,000 UNITS 25 MCG TAB PO SCH (08:17)
[2023-03-08] MEDS: LANTUS PER UNIT CHARGE SQ SCH ×2 (08:18→22:46)
[2023-03-08] MEDS: INSULIN ASPART PER UNIT CHARGE SC SCH ×4 (08:30→20:45)
[2023-03-08] MEDS: ERTAPENEM SODIUM 1,000 MG in SYRINGE 0 ML IV SCH (09:37)
[2023-03-08] MEDS: lisinopril 40 MG TAB PO SCH (09:37)
--- NOTE | 2023-03-08 09:54 | Neurology Consultation ---
Date of Consultation March 08, 2023 Assessment & Plan (1) Dementia: (2) Myoclonus: (3) Tremor: (4) Hypocalcemia: Plan 72-year-old female with advanced dementia, probably of the Alzheimer's type, who was admitted to the [facility] 1 week ago for encephalopathy in the context of urinary tract infection. She has been observed to have generalized shaking and involuntary jerking of the limbs at times. She appears to have an element of myoclonus as well as postural and action tremor. I see that she has had hypocalcemia for the past week which could be contributing to her abnormal movements, in addition to postinfectious, other metabolic causes (diabetes mellitus and chronic kidney disease). No acute process on recently completed brain MRI. The study reveals atrophy and chronic microvascular ischemic disease. Seizures are probably unlikely. However, obtaining a bedside EEG would not be completely unreasonable. Consider further evaluation/management of patient's hypocalcemia. I would not recommend starting treatment for her dementia with either donepezil or memantine in the acute setting. She has been evaluated by the local [facility] neurology group. Patient may follow-up with them upon discharge if necessary. However, it looks like she was referred for geriatric psychiatry for ongoing management of behavior/hallucinations. Her donepezil was apparently discontinued given the advanced stage of her dementia and lack of meaningful benefit at this stage of her neurodegenerative condition. Above discussed with Dr. Cantrell, hospitalist physician. Please call with any questions. History of Present Illness Reason for Consultation: Jerking of the limbs, seizure?, Dementia Requesting Physician: Dr. Damon Attending Physician: Clinton Cantrell MD History of Present Illness The patient is a 72-year-old female with a history of advanced dementia, chronic kidney disease, hyperlipidemia, hypertension, type 2 diabetes mellitus, who presented to the emergency department February 27 for altered mental status characterized by increasing somnolence and urinary incontinence. She is normally ambulatory although needs assistance for basic ADLs, she is able to eat and converse. She was admitted to the [facility] with a diagnosis of metabolic encephalopathy in the context of urinary tract infection. Her dementia has been progressive and a brain MRI was completed in the context of this hospitalization. A recent trial of Seroquel as an outpatient was not tolerated due to restlessness. Patient is a tendency for agitation and restlessness in the afternoon. Patient's diabetes and hypertension have been controlled as an outpatient. Patient has continued to exhibit significant confusion in the context of her advanced dementia, she has been a bit tremulous and exhibits intermittent jerking of the limbs as well. She has not had any obvious seizure activity in the context of this hospitalization. I did discuss her case with her nurse at bedside this morning. I did independently review the brain MRI completed March 06, 2023. The study was negative for acute or subacute infarct. No evidence of hemorrhage or cerebral amyloid angiopathy on GRE sequences. There is generalized atrophy with an element of hydrocephalus ex vacuo as well as chronic microvascular ischemic change notable on T2/FLAIR sequences. I see this patient follows with the local [facility] neurology group for her dementia. I did review a clinic note from February 16, 2023, new patient evaluation at that time, dementia beginning at least 2 years ago, characterized by confusion, hallucinations, often misplaces things in the home, disorientation. Had been on Aricept although suggested discontinuation due to advanced stage of dementia. Was given a trial of Seroquel but apparently not tolerated as above. Patient requires 29/05 supervision/observation. Was apparently referred for geriatric psychiatry evaluation. Allergies Allergy/AdvReac Type Severity Reaction Status Date / Time metformin Allergy Unknown Verified 02/27/23 14:11 quetiapine [From Seroquel] AdvReac Intermediate agitation/r Verified 02/27/23 14:11 estlessness Home Medications Medication Instructions Recorded Confirmed Type aspirin 81 mg tablet,delayed 81 mg PO DAILY 02/27/23 02/27/23 History release atorvastatin 20 mg tablet 20 mg PO DAILY 02/27/23 02/27/23 History calcium citrate 250 mg 1 tab PO TID 02/27/23 02/27/23 History calcium-vitamin D3 5 mcg (200 unit) tablet cholecalciferol (vitamin D3) 25 25 mcg PO DAILY 02/27/23 02/27/23 History mcg (1,000 unit) tablet empagliflozin 10 mg tablet 10 mg PO DAILY 02/27/23 02/27/23 History ferrous sulfate 325 mg (65 mg 325 mg PO DAILY 02/27/23 02/27/23 History iron) tablet (iron) glipizide 5 mg tablet, extended 5 mg PO BID 02/27/23 02/27/23 History release 24 hr hydrochlorothiazide 12.5 mg capsule 12.5 mg PO DAILY 02/27/23 02/27/23 History lisinopril 40 mg tablet 40 mg PO DAILY 02/27/23 02/27/23 History metoprolol succinate 25 mg 25 mg PO DAILY 02/27/23 02/27/23 History tablet,extended release 24 hr sertraline 25 mg tablet 50 mg PO DAILY 02/27/23 02/27/23 History Patient History Medical History CKD (chronic kidney disease), stage III Dementia with behavioral disturbance HLD (hyperlipidemia) HTN (hypertension) T2DM (type 2 diabetes mellitus) Surgical History (Updated 02/27/23 @ 14:12 by Kristen Yusuf PA-C) Hx of section Family History (Updated 02/27/23 @ 14:12 by Kristen Yusuf PA-C) Other Diabetes Hypertension Social History (Updated 02/27/23 @ 14:12 by Kristen Yusuf PA-C) Smoking Status: Never smoker Hx Alcohol Use: No Hx Substance Use: No Preferred Language: Chinese Communication Ability: Effective Communication Ability Comment: moans only at this time Dynamicist Required: No Beliefs That Will Affect Care: None marital status: Current Living Situation: Spouse Other Information That Helps Us Care for You: No Feels Safe at Home: Declines to Answer Assistive Devices: Walker Review of Systems Review of Systems: Unobtainable due to cognitive status Exam (Neuro) Constitutional: + altered mental status and + frail appearing Eyes: normal visual call by confrontation, PERRL and EOM intact bilaterally Cardiovascular: Vessels: no carotid bruit Neurologic: Oriented to:: Person; negative Place or Time Memory: negative Short Term Intact or Remote Intact Attention: negative Span Intact or Concentration Intact Speech Fluency: Dysfluency Speech Aphasia: negative Aphasia Fund of Knowledge: Vocabulary; negative Current Events or Past History Cranial Nerves: Normal II, III, IV, , V, VII, VIII, IX, X, XI and XII Motor Strength: Normal Lower Extremities and Normal Upper Extremities Motor Tone: Normal Lower Extremities and Normal Upper Extremities Muscle Bulk/Involuntary Movements: Action Tremor; negative Pill Rolling Tremor, Rest Tremor (Arm) or Head Tremor Sensation: Light Touch Intact, Pain/Temperature Intact, Vibration Intact and Proprioception Intact Coordination: Limited Balance; negative Finger-Nose Abnormal or Heel-Faye Abnormal Deep Tendon Reflexes: Rt Triceps: 2+, Lt Triceps: 2+, Rt Biceps: 2+, Lt Biceps: 2+, Rt Bra chioradialis: 2+, Lt Brachioradialis: 2+, Rt Patellar: 2+, Lt Patellar: 2+, Rt Ankle: 1+ and Lt Ankle: 1+ Special Tests: negative Babinski Present Details: Gait could not be tested. Patient did not cooperate adequately for direct ophthalmoscopic examination. She exhibits a course bilateral upper extremity postural tremor with an element of myoclonus. Results & Data Vital Signs (Past 12 Hours) Vital Signs Temp Pulse Pulse Resp BP BP Pulse Ox 03/08/23 08:24 37.1 C 63 16 190/82 H 97 03/08/23 07:13 62 03/08/23 03:00 37 C 68 18 152/113 H 97 03/08/23 01:37 60 03/07/23 22:00 36.5 C 65 18 144/96 H 95 O2 Del Method 03/08/23 08:24 Room Air 03/08/23 07:13 03/08/23 03:00 Room Air 03/08/23 01:37 03/07/23 22:00 Room Air Laboratory Results WBC 9.89, hemoglobin 11.6, hematocrit 35.0, platelet count 279, sodium 142, potassium 4.1, BUN 9, creatinine 0.78, glucose 104, calcium 8.0. I note the patient's calcium has been running low since March 03. Magnesium level from March 01 was 2.4. A TSH from February 27 was 1.997. Diagnostic Findings A CT of the head completed February 27, 2023 revealed atrophy and chronic microvascular ischemic disease. No hemorrhage or acute process. I independently reviewed these images as well as the brain MRI which as described in the history of present illness. Electrocardiogram completed February 28 revealed a normal sinus rhythm PG Care Time/CCT Total # of Minutes Spent Total Time Spent with Patient: 85 minutes spent with chart review, direct imaging review, review of labs, medical tests, recent outpatient [facility] neurology consult report, direct examination of patient, discussion with Dr. Cantrell, [facility] hospitalist and medical documentation. 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
[2023-03-08] MEDS ORDERED: STAT IV STA (11:32)
[2023-03-08] MEDS ORDERED: CALCIUM GLUCONATE 10% 1,000 MG in DEXTROSE 5% 50 ML IV ONE (11:45)
--- NOTE | 2023-03-08 17:49 | Hospitalist Progress Note ---
Date of Service March 08, 2023 Assessment & Plan (1) Sepsis: (2) UTI (urinary tract infection): Plan: Patient is a 72 yr female who has significant past medical history of T2DM, HTN, HLD, CKD stage III and dementia who presents to ED secondary to mental status change and responsiveness x2 days. Sepsis-POA Acute Metabolic Encephalopathy in setting of baseline Dementia ESBL UTI E.coli Bacteremia --MRI Brain:Motion degraded exam. No acute or subacute infarct. Involutional changes with ventriculomegaly, likely on an ex vacuo basis. Moderate chronic microvascular ischemic disease. -- Appreciate neurology input Obtain EEG Continue IV ertapenem to complete 2-week course Repeat blood cultures negative to date Reorient frequently to minimize delirium Rehab as able Diarrhea Likely secondary to IV antibiotics Stool for C. difficile negative Imodium as needed Hypocalcemia Continue calcium supplements Check ionized calcium (3) Dementia with behavioral disturbance: Plan: Dementia with behavioral disturbance Worsening mental status in the last 4 months Appreciate neurology input Reorient frequently to minimize delirium (4) T2DM (type 2 diabetes mellitus): Plan: Continue insulin while hospitalized Monitor BGs (5) HTN (hypertension): Plan: Hypertension Continue lisinopril, metoprolol Resume HCTZ as able Monitor (6) HLD (hyperlipidemia): Plan: On statin (7) CKD (chronic kidney disease), stage III: Plan: CKD stage III Cr stable Avoid nephrotoxic agents Monitor Plan Elevated troponin likely demand ischema in setting of infection No ACS symptoms Gross hematuria Likely due to UTI Further work up if needed Needs follow up as outpatient DVT Px: Heparin SQ Code Status DNR/DNI Admission and Anticipated Discharge Date Admission Date: February 28, 2023 Subjective Patient is seen and examined at bedside Poor historian secondary to dementia Discussed with patient's family in detail Patient denies any chest pain, shortness of breath, dizziness, nausea, abdominal pain No other complaints Review of Systems Review of Systems: All systems reviewed & are unremarkable except as noted in Subjective Physical Exam Physical Exam: Physical Exam: Vitals signs as noted above General Appearance:Moderately built and nourished, no apparent distress Head: normocephalic, Atraumatic Eyes: normal inspection, EOMI Neck: supple, Trachea midline Respiratory/Chest: Decreased breath sounds, CTA, No accessory muscle use Cardiovascular: S1, S2, No murmur Abdomen/GI:Soft, Non tender, Bowel sounds present Extremities/Musculoskeletal:normal inspection, no edema Neurologic/Psych:grossly no focal neurological deficits, +Dementia Skin: normal color, warm Results & Data Results & Data Vital Signs (Past 12 Hours) Vital Signs Temp Pulse Pulse Resp BP Pulse Ox O2 Del Method 03/08/23 15:39 62 03/08/23 15:00 37.0 C 58 L 16 164/60 H 95 Room Air 03/08/23 11:25 37.5 C 59 L 16 160/81 H 95 Room Air 03/08/23 10:46 Room Air 03/08/23 08:24 37.1 C 63 16 190/82 H 97 Room Air 03/08/23 07:13 62 Laboratory Results Short CBC 03/08/23 Range/Units 06:19 WBC 9.89 (4.8-10.8) K/ul Hgb 11.6 L (12.0-16.0) g/dl Hct 35.0 L (37.0-47.0) % Plt Count 279 (130-400) K/uL BMP 03/08/23 06:19 Sodium 142 Potassium 4.1 Chloride 109 H Carbon Dioxide 28 BUN 9 Creatinine 0.78 Glucose 104 H Calcium 8.0 L (2) UTI (urinary tract infection) Hematuria presence: without hematuria Urinary tract infection type: acute cystitis Qualified Code(s): N30.00 - Acute cystitis without hematuria
[2023-03-09] MEDS: INSULIN ASPART PER UNIT CHARGE SC SCH ×4 (09:16→21:04)
[2023-03-09] MEDS: LANTUS PER UNIT CHARGE SQ SCH ×2 (10:16→21:04)
[2023-03-09] MEDS: HEPARIN SOD 5,000 UNIT/0.5 ML VIAL SQ SCH ×3 (10:26→21:05)
[2023-03-09] MEDS: CHOLECALCIFEROL 1,000 UNITS 25 MCG TAB PO SCH (10:26)
[2023-03-09] MEDS: ATORVASTATIN 20 MG TAB PO SCH (10:26)
[2023-03-09] MEDS: ASPIRIN 81 MG ECTAB PO SCH (10:26)
[2023-03-09] MEDS: FERROUS SULFATE 325 MG TAB PO SCH (10:26)
[2023-03-09] MEDS: CALCIUM 600MG + VIT D 400 IU TAB PO SCH (10:26)
[2023-03-09] MEDS: ERTAPENEM SODIUM 1,000 MG in SYRINGE 0 ML IV SCH (10:27)
[2023-03-09] MEDS: ADVANCED PROBIOTIC 1250 MG CAPSULE PO SCH (10:27)
[2023-03-09] MEDS: SERTRALINE HCL 50 MG TABLET PO SCH (10:27)
[2023-03-09] MEDS: METOPROLOL SUCC 50MG EXT REL TAB PO SCH ×2 (10:32→21:07)
[2023-03-09] MEDS: lisinopril 40 MG TAB PO SCH (10:32)
--- NOTE | 2023-03-09 12:34 | Electroencephalogram ---
EEG Procedure Note Date of Service March 09, 2023 Start / End Times Start Time: 9:19 AM End Time: 9:[address] Cantrell History Change in mental status, twitching, seizure-like activity Home Medication List Medication Instructions Recorded Confirmed Type aspirin 81 mg tablet,delayed 81 mg PO DAILY 02/27/23 02/27/23 History release atorvastatin 20 mg tablet 20 mg PO DAILY 02/27/23 02/27/23 History calcium citrate 250 mg 1 tab PO TID 02/27/23 02/27/23 History calcium-vitamin D3 5 mcg (200 unit) tablet cholecalciferol (vitamin D3) 25 25 mcg PO DAILY 02/27/23 02/27/23 History mcg (1,000 unit) tablet empagliflozin 10 mg tablet 10 mg PO DAILY 02/27/23 02/27/23 History ferrous sulfate 325 mg (65 mg 325 mg PO DAILY 02/27/23 02/27/23 History iron) tablet (iron) glipizide 5 mg tablet, extended 5 mg PO BID 02/27/23 02/27/23 History release 24 hr hydrochlorothiazide 12.5 mg capsule 12.5 mg PO DAILY 02/27/23 02/27/23 History lisinopril 40 mg tablet 40 mg PO DAILY 02/27/23 02/27/23 History metoprolol succinate 25 mg 25 mg PO DAILY 02/27/23 02/27/23 History tablet,extended release 24 hr sertraline 25 mg tablet 50 mg PO DAILY 02/27/23 02/27/23 History Inpatient Medication List Acetaminophen (Acetaminophen 325 Mg Tab) 650 mg PO Q4H PRN PRN Reason: pain/fever Stop: 03/29/23 16:44 Last Admin: 03/07/23 15:14 Dose: 650 mg Documented By: ASHLY Aspirin (Aspirin 81 Mg Ectab) 81 mg PO DAILY [facility] Stop: 04/03/23 08:59 Last Admin: 03/09/23 10:26 Dose: Not Given Documented By: Admin: 03/08/23 08:17 Dose: 81 mg Documented By: Admin: 03/07/23 08:29 Dose: 81 mg Documented By: Admin: 03/06/23 08:14 Dose: 81 mg Documented By: Admin: 03/05/23 09:14 Dose: 81 mg Documented By: Admin: 03/04/23 09:33 Dose: 81 mg Documented By: EMEKA Atorvastatin Calcium (Atorvastatin 20 Mg Tab) 20 mg PO DAILY YASHIRA Stop: 04/03/23 08:59 Last Admin: 03/09/23 10:26 Dose: Not Given Documented By: Admin: 03/08/23 08:17 Dose: 20 mg Documented By: Admin: 03/07/23 08:28 Dose: 20 mg Documented By: Admin: 03/06/23 08:15 Dose: 20 mg Documented By: Admin: 03/05/23 09:14 Dose: 20 mg Documented By: Admin: 03/04/23 09:33 Dose: 20 mg Documented By: EMEKA Calcium/Vitamin D (Calcium 600mg + Vit D 400 Iu Tab) 1 tab PO DAILY YASHIRA Stop: 04/03/23 08:59 Last Admin: 03/09/23 10:26 Dose: Not Given Documented By: Admin: 03/08/23 08:17 Dose: 1 tab Documented By: Admin: 03/07/23 08:29 Dose: 1 tab Documented By: Admin: 03/06/23 08:15 Dose: 1 tab Documented By: Admin: 03/05/23 09:15 Dose: 1 tab Documented By: Admin: 03/04/23 09:34 Dose: 1 tab Documented By: EMEKA Ferrous Sulfate (Ferrous Sulfate 325 Mg Tab) 325 mg PO DAILY YASHIRA Stop: 04/03/23 08:59 Last Admin: 03/09/23 10:26 Dose: Not Given Documented By: Admin: 03/08/23 08:17 Dose: 325 mg Documented By: Admin: 03/07/23 08:28 Dose: 325 mg Documented By: Admin: 03/06/23 08:15 Dose: 325 mg Documented By: Admin: 03/05/23 09:14 Dose: 325 mg Documented By: Admin: 03/04/23 09:34 Dose: 325 mg Documented By: EMEKA Heparin Sodium (Porcine) (Heparin Sod 5,000 Unit/0.5 Ml Vial) 5,000 units SQ Q12 YASHIRA Stop: 03/31/23 20:59 Last Admin: 03/09/23 10:26 Dose: Not Given Documented By: Admin: 03/08/23 21:07 Dose: 5,000 units Documented By: Admin: 03/08/23 08:17 Dose: 5,000 units Documented By: Admin: 03/07/23 20:02 Dose: 5,000 units Documented By: Admin: 03/07/23 08:29 Dose: 5,000 units Documented By: Admin: 03/06/23 19:43 Dose: 5,000 units Documented By: CKMauricio Admin: 03/06/23 08:15 Dose: 5,000 units Documented By: Admin: 03/05/23 22:42 Dose: 5,000 units Documented By: Admin: 03/05/23 09:15 Dose: 5,000 units Documented By: Admin: 03/04/23 21:45 Dose: 5,000 units Documented By: Admin: 03/04/23 09:32 Dose: 5,000 units Documented By: Admin: 03/03/23 21:28 Dose: 5,000 units Documented By: Admin: 03/03/23 08:36 Dose: 5,000 units Documented By: Admin: 03/02/23 22:01 Dose: 5,000 units Documented By: RICKEY(2) Admin: 03/02/23 10:08 Dose: 5,000 units Documented By: REBA Co-signed By: ARMANDO Admin: 03/01/23 20:53 Dose: 5,000 units Documented By: RICKEY(2) Ertapenem 1,000 mg/ Syringe 10 mls @ 2 mls/min IV Q24H YASHIRA Stop: 03/14/23 10:29 Last Admin: 03/09/23 10:27 Dose: 2 mls/min Documented By: Admin: 03/08/23 09:37 Dose: 2 mls/min Documented By: Admin: 03/07/23 10:10 Dose: 2 mls/min Documented By: Admin: 03/06/23 10:55 Dose: 2 mls/min Documented By: Admin: 03/05/23 12:41 Dose: 2 mls/min Documented By: Admin: 03/04/23 10:24 Dose: 2 mls/min Documented By: Admin: 03/03/23 10:15 Dose: 2 mls/min Documented By: Admin: 03/02/23 10:08 Dose: 2 mls/min Documented By: REBA Co-signed By: CHRISTYR Admin: 03/01/23 10:32 Dose: 2 mls/min Documented By: Admin: 02/28/23 11:10 Dose: 2 mls/min Documented By: YVROSE Insulin Aspart (Insulin Aspart Per Unit Charge) 0 units SC ACHS YASHIRA Stop: 03/29/23 17:59 Last Admin: 03/09/23 09:16 Dose: Not Given Documented By: Admin: 03/08/23 20:45 Dose: Not Given Documented By: Admin: 03/08/23 17:08 Dose: Not Given Documented By: Admin: 03/08/23 12:28 Dose: 2 units Documented By: ASHLY Co-signed By: GREGG Admin: 03/08/23 08:30 Dose: Not Given Documented By: Admin: 03/07/23 21:14 Dose: Not Given Documented By: Admin: 03/07/23 17:33 Dose: Not Given Documented By: Admin: 03/07/23 12:10 Dose: Not Given Documented By: Admin: 03/07/23 09:25 Dose: Not Given Documented By: Admin: 03/06/23 22:34 Dose: 1 units Documented By: HILARY Co-signed By: JIMMY Admin: 03/06/23 17:34 Dose: Not Given Documented By: Admin: 03/06/23 12:50 Dose: Not Given Documented By: Admin: 03/06/23 08:16 Dose: Not Given Documented By: Admin: 03/05/23 22:41 Dose: 1 units Documented By: HILARY Co-signed By: ALEKS Admin: 03/05/23 17:11 Dose: Not Given Documented By: Admin: 03/05/23 12:41 Dose: 1 units Documented By: JEFF Co-signed By: TOM Admin: 03/05/23 09:11 Dose: Not Given Documented By: GEAndrew Admin: 03/04/23 21:44 Dose: 1 units Documented By: NAKIA Co-signed By: TERRANCE Admin: 03/04/23 17:22 Dose: 2 units Documented By: EMEKA Co-signed By: YAHIR Admin: 03/04/23 11:57 Dose: Not Given Documented By: Admin: 03/04/23 08:00 Dose: Not Given Documented By: Admin: 03/03/23 21:27 Dose: 1 units Documented By: NAKIA Co-signed By: TERRANCE Admin: 03/03/23 17:01 Dose: Not Given Documented By: Admin: 03/03/23 11:48 Dose: Not Given Documented By: Admin: 03/03/23 08:36 Dose: Not Given Documented By: RICKEY Co-signed By: DTT Admin: 03/02/23 20:50 Dose: Not Given Documented By: RICKEY(2) Admin: 03/02/23 17:21 Dose: 3 units Documented By: CONOR Co-signed By: Admin: 03/02/23 12:15 Dose: Not Given Documented By: Admin: 03/02/23 08:08 Dose: Not Given Documented By: Admin: 03/01/23 20:29 Dose: 1 units Documented By: RICKEY(2) Co-signed By: CIRO Admin: 03/01/23 17:32 Dose: 3 units Documented By: CONOR Co-signed By: LEO Admin: 03/01/23 12:01 Dose: 2 units Documented By: CONOR Co-signed By: LEO Admin: 03/01/23 08:08 Dose: Not Given Documented By: Admin: 02/28/23 20:53 Dose: 1 units Documented By: NICHO Co-signed By: ELLEN Admin: 02/28/23 17:29 Dose: Not Given Documented By: YVROSE Co-signed By: LEO Insulin Glargine (Lantus Per Unit Charge) 0 - 6 units SQ BID YASHIRA Stop: 03/29/23 20:59 Last Admin: 03/09/23 10:16 Dose: Not Given Documented By: Admin: 03/08/23 22:46 Dose: 3 units Documented By: NAKIA Co-signed By: BRETT Admin: 03/08/23 08:18 Dose: Not Given Documented By: Admin: 03/07/23 21:14 Dose: 3 units Documented By: HILARY Co-signed By: JAMIE Admin: 03/07/23 09:25 Dose: Not Given Documented By: Admin: 03/06/23 22:33 Dose: 3 units Documented By: HILARY Co-signed By: JIMMY Admin: 03/06/23 08:16 Dose: Not Given Documented By: Admin: 03/05/23 22:41 Dose: 3 units Documented By: HILARY Co-signed By: ALEKS Admin: 03/05/23 09:16 Dose: Not Given Documented By: Admin: 03/04/23 21:44 Dose: 3 units Documented By: NAKIA Co-signed By: TERRANCE Admin: 03/04/23 09:02 Dose: Not Given Documented By: Admin: 03/03/23 21:27 Dose: 3 units Documented By: NAKIA Co-signed By: TERRANCE Admin: 03/03/23 08:36 Dose: 3 units Documented By: RICKEY Co-signed By: KIM Admin: 03/02/23 20:57 Dose: Not Given Documented By: RICKEY(2) Admin: 03/02/23 08:37 Dose: Not Given Documented By: Admin: 03/01/23 20:54 Dose: 6 units Documented By: RICKEY(2) Co-signed By: KAYLA Admin: 03/01/23 08:08 Dose: Not Given Documented By: Admin: 02/28/23 20:52 Dose: 3 units Documented By: NICHO Co-signed By: ELLEN Admin: 02/28/23 09:38 Dose: Not Given Documented By: Admin: 02/27/23 21:33 Dose: Not Given Documented By: KIKI Lactobacillus Acidophilus (Advanced Probiotic 1250 Mg Capsule) 2 cap PO DAILY [facility] Stop: 03/29/23 16:44 Last Admin: 03/09/23 10:27 Dose: Not Given Documented By: Admin: 03/08/23 08:17 Dose: 2 cap Documented By: Admin: 03/07/23 08:28 Dose: 2 cap Documented By: Admin: 03/06/23 08:15 Dose: 2 cap Documented By: Admin: 03/05/23 09:14 Dose: 2 cap Documented By: Admin: 03/04/23 09:33 Dose: 2 cap Documented By: Admin: 03/03/23 08:36 Dose: 2 cap Documented By: Admin: 03/02/23 08:39 Dose: Not Given Documented By: Admin: 03/01/23 10:32 Dose: 2 cap Documented By: Admin: 02/28/23 09:38 Dose: Not Given Documented By: Admin: 02/27/23 17:06 Dose: Not Given Documented By: YVROSE Lisinopril (Lisinopril 40 Mg Tab) 40 mg PO DAILY [facility]A Stop: 04/07/23 08:59 Last Admin: 03/09/23 10:32 Dose: Not Given Documented By: Admin: 03/08/23 09:37 Dose: 40 mg Documented By: ASHLY Loperamide HCl (Loperamide Hcl 2 Mg Cap) 2 mg PO Q3H PRN PRN Reason: Diarrhea Stop: 04/02/23 13:30 Last Admin: 03/08/23 18:36 Dose: 2 mg Documented By: ASHLY Metoprolol Succinate (Metoprolol Succ 50mg Ext Rel Tab) 50 mg PO BID YASHIRA Stop: 04/05/23 08:59 Last Admin: 03/09/23 10:32 Dose: Not Given Documented By: Admin: 03/08/23 20:19 Dose: 50 mg Documented By: Admin: 03/08/23 08:17 Dose: 50 mg Documented By: Admin: 03/07/23 20:03 Dose: 50 mg Documented By: Admin: 03/07/23 08:28 Dose: 50 mg Documented By: Admin: 03/06/23 19:45 Dose: 50 mg Documented By: Admin: 03/06/23 09:13 Dose: 50 mg Documented By: LESLIE Sertraline HCl (Sertraline Hcl 50 Mg Tablet) 50 mg PO DAILY Y[facility]A Stop: 04/03/23 08:59 Last Admin: 03/09/23 10:27 Dose: Not Given Documented By: Admin: 03/08/23 08:17 Dose: 50 mg Documented By: Admin: 03/07/23 08:28 Dose: 50 mg Documented By: Admin: 03/06/23 08:15 Dose: 50 mg Documented By: Admin: 03/05/23 09:13 Dose: 50 mg Documented By: Admin: 03/04/23 09:34 Dose: 50 mg Documented By: EMEKA Vitamin D (Cholecalciferol 1,000 Units 25 Mcg Tab) 1,000 units PO DAILY Y[facility]IRA Stop: 04/03/23 08:59 Last Admin: 03/09/23 10:26 Dose: Not Given Documented By: Admin: 03/08/23 08:17 Dose: 1,000 units Documented By: Admin: 03/07/23 08:29 Dose: 1,000 units Documented By: Admin: 03/06/23 08:15 Dose: 1,000 units Documented By: Admin: 03/05/23 09:14 Dose: 1,000 units Documented By: Admin: 03/04/23 09:34 Dose: 1,000 units Documented By: EMEKA Discontinued Medications Furosemide (Furosemide 40 Mg/4 Ml Vial) 40 mg IV ONE ONE Stop: 03/02/23 14:31 Last Admin: 03/02/23 15:06 Dose: 40 mg Documented By: CONOR Sodium Chloride (Nss 1000ml) 1,000 mls @ 125 mls/hr IV .Q8H YASHIRA Stop: 02/27/23 20:29 Last Infusion: 02/27/23 17:15 Dose: 0 mls/hr Documented By: Admin: 02/27/23 12:44 Dose: 125 mls/hr Documented By: KRUPA Sodium Chloride (Nss) 500 mls @ 999 mls/hr IV .Q31M ONE Stop: 02/27/23 13:34 Last Infusion: 02/27/23 14:02 Dose: 0 mls/hr Documented By: Admin: 02/27/23 13:19 Dose: 999 mls/hr Documented By: KRUPA Ceftriaxone Sodium 1,000 mg/ (Dextrose) 50 mls @ 100 mls/hr IV NOW STA Stop: 02/27/23 13:33 Last Infusion: 02/27/23 14:39 Dose: 0 mls/hr Documented By: Admin: 02/27/23 13:54 Dose: 100 mls/hr Documented By: KRUPA Ceftriaxone Sodium 1,000 mg/ (Dextrose) 50 mls @ 100 mls/hr IV Q24H YASHIRA; Protocol Stop: 03/05/23 08:59 Last Infusion: 02/28/23 08:46 Dose: 0 mls/hr Documented By: Admin: 02/28/23 08:16 Dose: 100 mls/hr Documented By: YVROSE Potassium Chloride/Sodium Chloride (Normal Saline W/20 Meq Kcl) 20 meq in 1,000 mls @ 75 mls/hr IV .[id number] YASHIRA; Protocol Stop: 03/29/23 16:59 Last Infusion: 03/06/23 19:41 Dose: 0 mls/hr Documented By: Admin: 03/05/23 22:27 Dose: 75 mls/hr Documented By: Infusion: 03/05/23 18:42 Dose: 75 mls/hr Documented By: Admin: 03/05/23 05:22 Dose: 75 mls/hr Documented By: Infusion: 03/05/23 05:22 Dose: 75 mls/hr Documented By: Admin: 03/04/23 17:23 Dose: 75 mls/hr Documented By: Infusion: 03/04/23 17:23 Dose: 75 mls/hr Documented By: Infusion: 03/04/23 10:24 Dose: 75 mls/hr Documented By: Infusion: 03/04/23 09:43 Dose: 0 mls/hr Documented By: Admin: 03/04/23 05:00 Dose: 75 mls/hr Documented By: Infusion: 03/04/23 04:58 Dose: 75 mls/hr Documented By: Admin: 03/03/23 15:38 Dose: 75 mls/hr Documented By: Infusion: 03/03/23 15:28 Dose: 75 mls/hr Documented By: Admin: 03/03/23 02:08 Dose: 75 mls/hr Documented By: CRW(2) Infusion: 03/03/23 02:08 Dose: 75 mls/hr Documented By: CRW(2) Admin: 03/02/23 12:48 Dose: 75 mls/hr Documented By: Infusion: 03/02/23 12:48 Dose: 75 mls/hr Documented By: Admin: 03/01/23 23:51 Dose: 75 mls/hr Documented By: CRW(2) Infusion: 03/01/23 23:51 Dose: 75 mls/hr Documented By: CRW(2) Admin: 03/01/23 10:31 Dose: 75 mls/hr Documented By: Infusion: 03/01/23 10:09 Dose: 75 mls/hr Documented By: Admin: 02/28/23 20:49 Dose: 75 mls/hr Documented By: Infusion: 02/28/23 19:40 Dose: 75 mls/hr Documented By: Admin: 02/28/23 06:20 Dose: 75 mls/hr Documented By: Infusion: 02/28/23 06:20 Dose: 75 mls/hr Documented By: Admin: 02/27/23 17:02 Dose: 75 mls/hr Documented By: YVROSE Sodium Chloride (Nss 1000ml) 1,000 mls @ 50 mls/hr IV .Q20H YASHIRA Stop: 03/08/23 08:52 Last Infusion: 03/08/23 09:06 Dose: 0 mls/hr Documented By: Admin: 03/08/23 05:15 Dose: 80 mls/hr Documented By: Infusion: 03/08/23 05:15 Dose: 80 mls/hr Documented By: Admin: 03/07/23 17:36 Dose: 80 mls/hr Documented By: ASHLY Calcium Gluconate 1,000 mg/ (Dextrose) 60 mls @ 240 mls/hr IV ONE ONE Stop: 03/08/23 11:59 Last Infusion: 03/08/23 12:44 Dose: 0 mls/hr Documented By: Admin: 03/08/23 12:28 Dose: 240 mls/hr Documented By: ASHLY Insulin Aspart (Insulin Aspart Per Unit Charge) 0 units SC ACHS YASHIRA Stop: 03/29/23 16:44 Last Admin: 02/27/23 17:19 Dose: Not Given Documented By: YVROSE Co-signed By: EVERETT Insulin Aspart (Insulin Aspart Per Unit Charge) 0 units SC Q6 YASHIRA Stop: 03/29/23 16:44 Last Admin: 02/28/23 12:26 Dose: Not Given Documented By: Admin: 02/28/23 06:21 Dose: Not Given Documented By: Admin: 02/28/23 02:16 Dose: Not Given Documented By: Admin: 02/27/23 18:10 Dose: Not Given Documented By: YVROSE Co-signed By: Lorazepam (Lorazepam 2 Mg/1 Ml Vial) 0.25 mg IV NOW STA Stop: 03/05/23 23:48 Last Admin: 03/06/23 00:49 Dose: 0.25 mg Documented By: HILARY Lorazepam (Lorazepam 2 Mg/1 Ml Vial) 0.25 mg IV NOW STA Stop: 03/07/23 01:50 Last Admin: 03/07/23 02:04 Dose: 0.25 mg Documented By: HILARY Metoprolol Succinate (Metoprolol Succ 25mg Ext Rel Tab) 25 mg PO QAM [facility] Stop: 04/02/23 13:29 Last Admin: 03/05/23 09:13 Dose: 25 mg Documented By: Admin: 03/04/23 09:33 Dose: 25 mg Documented By: Admin: 03/03/23 13:34 Dose: Not Given Documented By: CASTROW Metoprolol Tartrate (Metoprolol Tartrate 1 Mg/Ml Vial) 5 mg IV Q6 [facility] Stop: 04/01/23 11:59 Last Admin: 03/03/23 12:47 Dose: 5 mg Documented By: Admin: 03/03/23 05:30 Dose: Not Given Documented By: RICKEY(2) Admin: 03/03/23 00:06 Dose: 5 mg Documented By: RICKEY(2) Admin: 03/02/23 17:25 Dose: 5 mg Documented By: Admin: 03/02/23 12:26 Dose: 5 mg Documented By: CONOR Nitroglycerin (Nitroglycerin 2% Ointment 30gm Tube) 1 inch EXT NOW STA Stop: 03/06/23 08:07 Last Admin: 03/06/23 08:26 Dose: 1 inch Documented By: LESLIE Olanzapine (Olanzapine 10 Mg/2.1 Ml Sdv) 2.5 mg IM NOW STA Stop: 03/07/23 20:32 Last Admin: 03/07/23 21:20 Dose: 2.5 mg Documented By: HILARY Description This is a 21 electrode EEG with a single channel dedicated to limited EKG. The electrodes were placed in accordance with the International 10-20 system. The predominant background rhythm consists of generalized moderate amplitude, 6 to 8 Hz frequencies. Photic stimulation is unremarkable. Hyperventilation is not performed. There is no focal slowing. There are no epileptiform abnormalities. Interpretation Abnormal awake/drowsy EEG with persistent generalized slowing suggestive of a nonspecific encephalopathy. No epileptiform abnormalities observed. [facility] EEG Procedure Codes Indication for Procedure (1) Myoclonus: (2) Tremor: (3) Encephalopathy due to infection: (4) Dementia with behavioral disturbance: Neurology Neurology: 25434 EEG include record awake & drowsy
[2023-03-09 12:48] LABS: Base Excess VBG 3.9 mEq/L; HCO3 VBG 29 mmol/L; Oxygen Saturation VBG 90.8 %; PCO2 VBG 42 mmHg (38-50); PO2 VBG 60 mmHg; pH VBG 7.44 (7.36-7.41)
--- NOTE | 2023-03-09 13:21 | CT Scan Report ---
HEAD CT NONCONTRAST CT DOSE: 614.27 mGy.cm HISTORY: Altered mental status. TECHNIQUE: Multiaxial CT images of the head were performed without the use of intravenous contrast. A utomated exposure control was utilized for this study. A dose lowering technique was utilized adheri ng to the principles of ALARA. Comparison: Brain MRI 03/06/2023. Head CT 02/27/2023. Findings: The paranasal sinuses and mastoid air cells are clear. The calvarium and skull base are int act. There is no mass, hematoma, midline shift, acute infarct. White matter hypodensity is nonspecifi c but suggestive of microvascular ischemic change. The ventricles and sulci demonstrate mild age-rela kenia involutional changes. Impression: No significant change compared to the prior study. No acute intracranial abnormality. ACT 112: Negative or not required by law. Electronically signed by: Brien Bajwa M.D. 03/09/2023 1:20 PM
--- NOTE | 2023-03-09 17:19 | Hospitalist Progress Note ---
Date of Service March 09, 2023 Assessment & Plan (1) Sepsis: (2) UTI (urinary tract infection): Plan: Patient is a 72 yr female who has significant past medical history of T2DM, HTN, HLD, CKD stage III and dementia who presents to ED secondary to mental status change and responsiveness x2 days. Sepsis-POA Acute Metabolic Encephalopathy in setting of baseline Dementia ESBL UTI E.coli Bacteremia --MRI Brain:Motion degraded exam. No acute or subacute infarct. Involutional changes with ventriculomegaly, likely on an ex vacuo basis. Moderate chronic microvascular ischemic disease. -- Appreciate neurology input Obtain EEG Continue IV ertapenem to complete 2-week course Repeat blood cultures negative to date Reorient frequently to minimize delirium Rehab as able Acute metabolic encephalopathy In setting of dementia --CT head:No significant change compared to the prior study. No acute intracranial abnormality. Normal Ammonia level VBG showed no hypercarbia EEG:Abnormal awake/drowsy EEG with persistent generalized slowing suggestive of a nonspecific encephalopathy. No epileptiform abnormalities observed. Avoid sedative meds as able Diarrhea Likely secondary to IV antibiotics Stool for C. difficile negative Imodium as needed Hypocalcemia Continue calcium supplements Normal ionized calcium (3) Dementia with behavioral disturbance: Plan: Dementia with behavioral disturbance Worsening mental status in the last 4 months Appreciate neurology input Reorient frequently to minimize delirium (4) T2DM (type 2 diabetes mellitus): Plan: Continue insulin while hospitalized Monitor BGs (5) HTN (hypertension): Plan: Hypertension Continue lisinopril, metoprolol Resume HCTZ as able Monitor (6) HLD (hyperlipidemia): Plan: On statin (7) CKD (chronic kidney disease), stage III: Plan: CKD stage III Cr stable Avoid nephrotoxic agents Monitor Plan Elevated troponin likely demand ischema in setting of infection No ACS symptoms Gross hematuria Likely due to UTI Further work up if needed Needs follow up as outpatient DVT Px: Heparin SQ Code Status DNR/DNI Admission and Anticipated Discharge Date Admission Date: February 28, 2023 Subjective Patient is seen and examined at bedside Very drowsy during my encounter Did not receive any sedating medications overnight or this morning Poor historian secondary to dementia Discussed with patient's family at bedside No distress on exam CT head showed no acute findings Review of Systems Review of Systems: Other Physical Exam Physical Exam: Physical Exam: Vitals signs as noted above General Appearance:Moderately built and nourished, no apparent distress Head: normocephalic, Atraumatic Eyes: normal inspection, EOMI Neck: supple, Trachea midline Respiratory/Chest: Decreased breath sounds, CTA, No accessory muscle use Cardiovascular: S1, S2, No murmur Abdomen/GI:Soft, Non tender, Bowel sounds present Extremities/Musculoskeletal:normal inspection, no edema Neurologic/Psych:grossly no focal neurological deficits, +Dementia, Drowsy Skin: normal color, warm Results & Data Results & Data Vital Signs (Past 12 Hours) Vital Signs Temp Pulse Pulse Resp BP Pulse Ox O2 Del Method 03/09/23 14:20 Room Air 03/09/23 14:20 37.1 C 81 16 127/68 97 Room Air 03/09/23 11:19 37.0 C 70 16 152/68 H 95 Room Air 03/09/23 08:04 36.5 C 71 18 151/60 H 97 Room Air 03/09/23 08:01 65 (2) UTI (urinary tract infection) Hematuria presence: without hematuria Urinary tract infection type: acute cystitis Qualified Code(s): N30.00 - Acute cystitis without hematuria
[2023-03-10 08:12] LABS: Calcium 8.3 mg/dl (8.6-10.3); Magnesium 1.9 mg/dl (1.7-2.4); Potassium 3.4 mmol/L (3.5-5.1)
[2023-03-10 08:18] LABS: BUN Creatinine Ratio 15.6 (10-20); Creatinine Clr Calc Pharmacy 55.4 ml/min; Est GFR (African American) 88.2 ml/min; Est GFR (Non-African American) 76.1 ml/min
[2023-03-10] MEDS ORDERED: POTASSIUM CHLORIDE CRTAB 20 MEQ TABCR PO ONE (09:23)
[2023-03-10] MEDS: LANTUS PER UNIT CHARGE SQ SCH ×2 (09:25→21:14)
[2023-03-10] MEDS: INSULIN ASPART PER UNIT CHARGE SC SCH ×4 (09:26→20:43)
[2023-03-10] MEDS: ASPIRIN 81 MG ECTAB PO SCH (09:27)
[2023-03-10] MEDS: ADVANCED PROBIOTIC 1250 MG CAPSULE PO SCH (09:27)
[2023-03-10] MEDS: CHOLECALCIFEROL 1,000 UNITS 25 MCG TAB PO SCH (09:27)
[2023-03-10] MEDS: HEPARIN SOD 5,000 UNIT/0.5 ML VIAL SQ SCH ×3 (09:27→21:15)
[2023-03-10] MEDS: CALCIUM 600MG + VIT D 400 IU TAB PO SCH (09:27)
[2023-03-10] MEDS: ATORVASTATIN 20 MG TAB PO SCH (09:27)
[2023-03-10] MEDS: FERROUS SULFATE 325 MG TAB PO SCH (09:27)
[2023-03-10] MEDS: SERTRALINE HCL 50 MG TABLET PO SCH (09:28)
[2023-03-10] MEDS: lisinopril 40 MG TAB PO SCH (10:34)
[2023-03-10] MEDS: ERTAPENEM SODIUM 1,000 MG in SYRINGE 0 ML IV SCH (10:35)
[2023-03-10] MEDS: METOPROLOL SUCC 50MG EXT REL TAB PO SCH ×2 (10:35→21:12)
--- NOTE | 2023-03-10 14:08 | Hospitalist Progress Note ---
Date of Service March 10, 2023 Assessment & Plan (1) Sepsis: (2) UTI (urinary tract infection): Plan: Patient is a 72 yr female who has significant past medical history of T2DM, HTN, HLD, CKD stage III and dementia who presents to ED secondary to mental status change and responsiveness x2 days. Sepsis-POA Acute Metabolic Encephalopathy in setting of baseline Dementia ESBL UTI E.coli Bacteremia --MRI Brain:Motion degraded exam. No acute or subacute infarct. Involutional changes with ventriculomegaly, likely on an ex vacuo basis. Moderate chronic microvascular ischemic disease. -- Appreciate neurology input Obtain EEG Continue IV ertapenem to complete 2-week course Repeat blood cultures negative to date Reorient frequently to minimize delirium Rehab when accepted Plan to complete 2 week course of IV Ertapenem on 03/14/23 (Last dose) Acute metabolic encephalopathy In setting of dementia --CT head:No significant change compared to the prior study. No acute intracranial abnormality. Normal Ammonia level VBG showed no hypercarbia EEG:Abnormal awake/drowsy EEG with persistent generalized slowing suggestive of a nonspecific encephalopathy. No epileptiform abnormalities observed. Avoid sedative meds as able Mental status Improved Diarrhea Likely secondary to IV antibiotics Stool for C. difficile negative Imodium as needed Hypocalcemia Continue calcium supplements Normal ionized calcium (3) Dementia with behavioral disturbance: Plan: Dementia with behavioral disturbance Worsening mental status in the last 4 months Appreciate neurology input Reorient frequently to minimize delirium (4) T2DM (type 2 diabetes mellitus): Plan: Continue insulin while hospitalized Monitor BGs (5) HTN (hypertension): Plan: Hypertension Continue lisinopril, metoprolol Resume HCTZ Monitor (6) HLD (hyperlipidemia): Plan: On statin (7) CKD (chronic kidney disease), stage III: Plan: CKD stage III Cr stable Avoid nephrotoxic agents Monitor Plan Elevated troponin likely demand ischema in setting of infection No ACS symptoms Gross hematuria Likely due to UTI Further work up if needed Needs follow up as outpatient DVT Px: Heparin SQ Code Status DNR/DNI Admission and Anticipated Discharge Date Admission Date: February 28, 2023 Subjective Patient is seen and examined at bedside Alert awake and oriented to person Offers no new complaints Discussed with patient's family at bedside Poor historian due to dementia Plan to discharge to rehab facility when accepted Review of Systems Review of Systems: All systems reviewed & are unremarkable except as noted in Subjective Physical Exam Physical Exam: Physical Exam: Vitals signs as noted above General Appearance:Moderately built and nourished, no apparent distress Head: normocephalic, Atraumatic Eyes: normal inspection, EOMI Neck: supple, Trachea midline Respiratory/Chest: Decreased breath sounds, CTA, No accessory muscle use Cardiovascular: S1, S2, No murmur Abdomen/GI:Soft, Non tender, Bowel sounds present Extremities/Musculoskeletal:normal inspection, no edema Neurologic/Psych:grossly no focal neurological deficits, +Dementia Skin: normal color, warm Results & Data Results & Data Vital Signs (Past 12 Hours) Vital Signs Temp Pulse Pulse Resp BP Pulse Ox O2 Del Method 03/10/23 11:28 37.2 C 74 16 152/75 H 97 Room Air 03/10/23 10:00 Room Air 03/10/23 06:50 74 03/10/23 07:43 36.6 C 69 16 160/67 H 95 Room Air 03/10/23 04:13 36.6 C 81 16 169/86 H 97 Room Air Laboratory Results [facility] 03/10/23 07:15 Sodium 142 Potassium 3.4 L Chloride 106 Carbon Dioxide 30 BUN 12 Creatinine 0.77 Glucose 124 H Calcium 8.3 L (2) UTI (urinary tract infection) Hematuria presence: without hematuria Urinary tract infection type: acute cystitis Qualified Code(s): N30.00 - Acute cystitis without hematuria
[2023-03-11 06:26] LABS: BUN Creatinine Ratio 18.8 (10-20); Calcium 8.6 mg/dl (8.6-10.3); Creatinine Clr Calc Pharmacy 53.3 ml/min; Est GFR (African American) 84.2 ml/min; Est GFR (Non-African American) 72.6 ml/min; Potassium 3.7 mmol/L (3.5-5.1)
[2023-03-11] MEDS: CHOLECALCIFEROL 1,000 UNITS 25 MCG TAB PO SCH (08:01)
[2023-03-11] MEDS: ASPIRIN 81 MG ECTAB PO SCH (08:01)
[2023-03-11] MEDS: ATORVASTATIN 20 MG TAB PO SCH (08:01)
[2023-03-11] MEDS: CALCIUM 600MG + VIT D 400 IU TAB PO SCH (08:01)
[2023-03-11] MEDS: FERROUS SULFATE 325 MG TAB PO SCH (08:01)
[2023-03-11] MEDS: HEPARIN SOD 5,000 UNIT/0.5 ML VIAL SQ SCH (08:02)
[2023-03-11] MEDS: lisinopril 40 MG TAB PO SCH (08:02)
[2023-03-11] MEDS: METOPROLOL SUCC 50MG EXT REL TAB PO SCH (08:02)
[2023-03-11] MEDS: ADVANCED PROBIOTIC 1250 MG CAPSULE PO SCH (08:02)
[2023-03-11] MEDS: SERTRALINE HCL 50 MG TABLET PO SCH (08:02)
[2023-03-11] MEDS: INSULIN ASPART PER UNIT CHARGE SC SCH (08:47)
[2023-03-11] MEDS: LANTUS PER UNIT CHARGE SQ SCH (08:48)
[2023-03-11] MEDS: ERTAPENEM SODIUM 1,000 MG in SYRINGE 0 ML IV SCH (09:46)
--- NOTE | 2023-03-11 09:47 | Discharge Summary ---
Date of Service March 11, 2023 Admission HPI Per Admitting Provider This is a 72-year-old female who has significant past medical history of T2DM, HTN, HLD, CKD stage III and dementia who presents to ED secondary to mental status change and responsiveness x2 days. Patient's is at bedside. ROS unobtainable from patient due to current cognitive status. states recently traveled back from [place] as they were there for 4 months. Typically they go 4 months of the year. While in [place] he noted that she been having a shuffling gait and difficulty walking. She also has been having increase in falls. She had 1 fall in [place] where she injured the left frontal aspect of her forehead. She had a CT head done at that time which was negative. She has since followed up with Dr. Green her primary care doctor in clinic as well as neurology. brought her to ED today due to unable to arouse patient and unable to get her out of bed. He states she has been like this the past 2 to 3 days but he was eventually able to arouse her and get her out of bed.In ED patient was hemodynamically stable although slightly tachycardic. Lab work consistent with mild leukocytosis at 11.93 K, BUN 26, creatinine 0.97, glucose 117, lactate 2.0, total bilirubin 1.7, troponin 36.6 and procalcitonin 6.38. Her urinalysis is consistent with infection. Also noted is +[address] was negative for any acute changes but did reveal atrophy and microvascular ischemic change. Chest x-ray negative for any acute abnormality. She did receive IV fluid and IV ceftriaxone. Admission Exam Per Admitting Provider Constitutional: WD/WN, Chronically ill-appearing, female,Minimally arouses to verbal stimuli, vitals as above, NAD Head: Normocephalic, + contusion to L frontal forehead Eyes: PERRL, conjunctivae normal, anicteric sclerae ENMT: external ear and nose normal, oropharynx normal Significantly dry membranes Neck: trachea midline, no thyromegaly normal visual inspection Respiratory: normal respiratory effort, lungs clear to auscultation, no wheeze, rales, rhonchi. Normal insp/exp effort, no accessory muscle use Cardiovascular: RRR, no murmur, no edema Vessels: no JVD or carotid bruit Chest: normal inspection of chest Abdomen: normal bowel sounds, soft, nontender, no hepatosplenomegaly Musculoskeletal: no cyanosis or clubbing, extremities motor strength 5/5 Skin: no rashes, warm and dry normal turgor Neurologic: PERRL, EOMI, accommodation nl, no face palsy, no dysarthria CN's II-XI intact bilaterally and moves all extremities Psychiatric: Not alert or arousable, does around to tactile and verbal stimuli, euthymic affect Lymphatic: no cervical or axillary lymphadenopathy : deferred Principal Diagnosis Sepsis Acute Metabolic Encephalopathy in setting of baseline Dementia ESBL UTI E.coli Bacteremia Dementia Discharge Data Allergies Allergy/AdvReac Type Severity Reaction Status Date / Time metformin Allergy Unknown Verified 02/27/23 14:11 quetiapine [From Seroquel] AdvReac Intermediate agitation/r Verified 02/27/23 14:11 estlessness Consultations 03/07/23 16:56 Consult Neurology Routine Procedures Performed Laboratory Results WBC 9.89 K/ul (4.8-10.8) 03/08/23 06:19 RBC 3.97 M/uL (4.20-5.40) L 03/08/23 06:19 Hgb 11.6 g/dl (12.0-16.0) L 03/08/23 06:19 Hct 35.0 % (37.0-47.0) L 03/08/23 06:19 MCV 88.2 fL (80.0-100.0) 03/08/23 06:19 MCH 29.2 pg (25.0-34.0) 03/08/23 06:19 MCHC 33.1 g/dL (32.0-36.0) 03/08/23 06:19 RDW Std Deviation 42.8 fL (36.4-46.3) 03/08/23 06:19 RDW Coeff of Natividad 13.3 % (11.5-14.5) 03/08/23 06:19 Plt Count 279 K/uL (130-400) 03/08/23 06:19 MPV 10.1 fL (9.4-12.4) 03/08/23 06:19 Immature Gran % (Auto) 2.1 % 03/08/23 06:19 Neut % (Auto) 68.6 % 03/08/23 06:19 Lymph % (Auto) 17.0 % 03/08/23 06:19 Peach % (Auto) 6.0 % 03/08/23 06:19 Eos % (Auto) 5.6 % 03/08/23 06:19 Baso % (Auto) 0.7 % 03/08/23 06:19 Neut # (Auto) 6.79 K/uL (1.40-6.50) H 03/08/23 06:19 Lymph # (Auto) 1.68 K/uL (1.2-3.4) 03/08/23 06:19 Peach # (Auto) 0.59 K/uL (0.11-0.59) 03/08/23 06:19 Eos # (Auto) 0.55 K/uL (0-0.50) H 03/08/23 06:19 Baso # (Auto) 0.07 K/uL (0-0.2) 03/08/23 06:19 Immature Gran # (Auto) 0.21 K/uL (0.01-0.20) H 03/08/23 06:19 Echinocytes 1+ 02/28/23 03:41 PT 10.9 Seconds (9.0-12.0) 02/27/23 12:29 INR 1.0 (0.9-1.1) 02/27/23 12:29 APTT 25.7 Seconds (21.0-31.0) 02/27/23 12:29 PTT Ratio 0.9 02/27/23 12:29 ABG pH 7.46 (7.35-7.45) H 02/27/23 15:42 ABG pCO2 34 mmHg (35-46) L 02/27/23 15:42 ABG pO2 69 mmHg (80-95) L 02/27/23 15:42 ABG HCO3 24 mmol/L (19-24) 02/27/23 15:42 ABG O2 Saturation 95.3 % (90-95) H 02/27/23 15:42 ABG Base Excess 0.8 mEq/L (-9-1.8) 02/27/23 15:42 [place] Test Pos (Pos) 02/27/23 15:42 VBG pH 7.44 (7.36-7.41) H 03/09/23 12:29 VBG pCO2 42 mmHg (38-50) 03/09/23 12:29 VBG pO2 60 mmHg 03/09/23 12:29 VBG HCO3 29 mmol/L 03/09/23 12:29 VBG O2 Saturation 90.8 % 03/09/23 12:29 VBG Base Excess 3.9 mEq/L 03/09/23 12:29 Oxygen Given ROOM AIR 02/27/23 15:42 Sodium 142 mmol/L (136-145) 03/11/23 05:26 Potassium 3.7 mmol/L (3.5-5.1) 03/11/23 05:26 Chloride 109 mmol/L (98-107) H 03/11/23 05:26 Carbon Dioxide 28 mmol/L (21-32) 03/11/23 05:26 Anion Gap 5 (3-11) 03/11/23 05:26 BUN 15 mg/dl (6-23) 03/11/23 05:26 Creatinine 0.80 mg/dl (0.6-1.2) 03/11/23 05:26 Est Cr Clr Drug Dosing 53.3 ml/min 03/11/23 05:26 Est GFR ( Amer) 84.2 ml/min 03/11/23 05:26 Est GFR (Non-Af Amer) 72.6 ml/min 03/11/23 05:26 BUN/Creatinine Ratio 18.8 (10-20) 03/11/23 05:26 Glucose 124 mg/dl (70-99(Fasting)) H 03/11/23 05:26 POC Glucose 133 mg/dl (70-99) H 03/11/23 07:58 Lactate 2.0 mmol/L (0.4-2.0) 02/27/23 12:29 Calcium 8.6 mg/dl (8.6-10.3) 03/11/23 05:26 Ionized Calcium 1.15 mmol/L (1.12-1.32) 03/09/23 06:01 Phosphorus 3.0 mg/dl (2.5-4.9) 03/09/23 06:01 Magnesium 1.9 mg/dl (1.7-2.4) 03/10/23 07:15 Total Bilirubin 0.9 mg/dl (0.2-1.0) D 02/28/23 03:41 AST 24 U/L (13-39) 02/28/23 03:41 ALT 13 U/L (7-52) 02/28/23 03:41 Alkaline Phosphatase 59 U/L (34-104) 02/28/23 03:41 Ammonia 33.0 umol/L (18-72) 03/09/23 12:29 Troponin I High Sens 61.7 pg/ml (0-14) H* 02/28/23 08:51 Total Protein 7.2 gm/dl (6.0-8.3) 02/28/23 03:41 Albumin 3.5 gm/dl (3.4-5.0) 02/28/23 03:41 Globulin 3.7 gm/dl (2.5-4.0) 02/28/23 03:41 Albumin/Globulin Ratio 0.9 (0.9-2) 02/28/23 03:41 Procalcitonin 6.38 ng/ml (0-0.5) H 02/27/23 12:29 TSH 1.997 uIu/ml (0.300-4.500) 02/27/23 12:29 Urine Color Yellow 02/27/23 10:20 Urine Appearance Turbid (Clear) A 02/27/23 10:20 Urine pH 6.0 (4.5-7.5) 02/27/23 10:20 Ur Specific Carbon 1.025 (1.000-1.030) 02/27/23 10:20 Urine Protein 1+ (Negative) H 02/27/23 10:20 Urine Glucose (UA) 3+ (Negative) H 02/27/23 10:20 Urine Ketones 1+ (Negative) H 02/27/23 10:20 Urine Blood 3+ (Negative) H 02/27/23 10:20 Urine Nitrite Positive (Negative) A 02/27/23 10:20 Urine Bilirubin Negative (Negative) 02/27/23 10:20 Urine Urobilinogen Negative (Negative) 02/27/23 10:20 Ur Leukocyte Esterase 2+ (Negative) H 02/27/23 10:20 Urine WBC (Auto) >30 /hpf (0-5) H 02/27/23 10:20 Urine RBC (Auto) 5-10 /hpf (0-4) H 02/27/23 10:20 U Hyaline Cast (Auto) 1-5 /lpf (0-5) 02/27/23 10:20 U Epithel Cells (Auto) >30 /lpf (0-5) H 02/27/23 10:20 Urine Bacteria (Auto) 4+ (Negative) H 02/27/23 10:20 Urine Yeast Not Reportable 02/27/23 10:20 Stl C. diff Tox B Gene Negative Cdiff Gene (Neg) 03/04/23 11:15 SARS-CoV-2 (PCR) Cancelled 02/27/23 12:42 Enterobacterales (PCR) DETECTED (NotDetected) A 02/27/23 12:17 E. coli (PCR) DETECTED (NotDetected) A 02/27/23 12:17 SARS-CoV-2, RNA, NAAT NEGATIVE (NEGATIVE) 03/10/23 Unknown mcr-1 Colistin Res Gene PCR Not Detected (NotDetected) 02/27/23 12:17 blaIMP Car res Gene PCR Not Detected (NotDetected) 02/27/23 12:17 KPC-Carbap Res Gene PCR Not Detected (NotDetected) 02/27/23 12:17 blaNDM Car Res Gene PCR Not Detected (NotDetected) 02/27/23 12:17 OXA-48 Carbapenem Resis Gene (PCR) Not Detected (NotDetected) 02/27/23 12:17 blaVIM Car Res Gene PCR Not Detected (NotDetected) 02/27/23 12:17 CTX-M Gene Resistance (PCR) DETECTED (NotDetected) A* 02/27/23 12:17 Bld Cult ID Panel PCR See PCR Comment (NotDetected) 02/27/23 12:17 Impressions Chest X-Ray 03/02/23 04:13 XR chest 1V portable CLINICAL HISTORY: wheezing COMPARISON STUDY: Chest radiograph February 27, 2023. FINDINGS: Patient is rotated. No pneumothorax or pleural effusion is present. Allowing for rotation, cardiomegaly is unchanged. Mild interstitial thickening has developed. No definite consolidation. IMPRESSION: Interval development of interstitial thickening. This may reflect pulmonary vascular congestion. Although less likely, an infectious process could appear similar. ACT 112: Negative or not required by law. Electronically signed by: Cb Adams M.D. 03/02/2023 7:01 AM Brain MRI 03/06/23 16:51 MR brain wo con HISTORY: 72 years-old Female R/O Stroke/mass acute strokelike symptoms COMPARISON: Head CT 02/27/2023 TECHNIQUE: Multiplanar multisequence MRI of the brain was obtained without the use of IV contrast. FINDINGS: Motion degraded exam. No restricted diffusion. Midline structures appear unremarkable. Degenerative changes of the cervical spine. No acute intracranial hemorrhage, midline shift, abnormal extra-axial collection, or intracranial mass. No pathologic blooming artifact. Involutional changes with ventriculomegaly noted. Moderate T2/FLAIR hyperintense foci throughout the white matter. Cerebral venous sinuses and major arterial flow voids appear patent. Skull, orbits and soft tissues are unremarkable. IMPRESSION: 1. Motion degraded exam. No acute or subacute infarct. 2. Involutional changes with ventriculomegaly, likely on an ex vacuo basis. 3. Moderate chronic microvascular ischemic disease. ACT 112: Negative or not required by law. The above report was generated using voice recognition software. It may contain grammatical, syntax or spelling errors. Electronically signed by: Frederick Pimentel M.D. 03/06/2023 7:[address] 03/09/23 12:[address] DOSE: 614.27 mGy.cm HISTORY: Altered mental status. TECHNIQUE: Multiaxial CT images of the head were performed without the use of intravenous contrast. Automated exposure control was utilized for this study. A dose lowering technique was utilized adhering to the principles of ALARA. Comparison: Brain MRI 03/06/2023. Head CT 02/27/2023. Findings: The paranasal sinuses and mastoid air cells are clear. The calvarium and skull base are intact. There is no mass, hematoma, midline shift, acute infarct. White matter hypodensity is nonspecific but suggestive of microvascular ischemic change. The ventricles and sulci demonstrate mild age-related involutional changes. Impression: No significant change compared to the prior study. No acute intracranial abnormality. ACT 112: Negative or not required by law. Electronically signed by: Brien Bajwa M.D. 03/09/2023 1:20 PM Ordered Studies 02/27/23 13:05 CT head/brain wo con Stat 03/06/23 16:51 MR brain wo con Routine 03/09/23 12:03 CT head/brain wo con Urgent Hospital Course (1) Sepsis: Patient is a 72 yr female who has significant past medical history of T2DM, HTN, HLD, CKD stage III and dementia who presents to ED secondary to mental status change and responsiveness x2 days. Sepsis-POA Acute Metabolic Encephalopathy in setting of baseline Dementia ESBL UTI E.coli Bacteremia --MRI Brain:Motion degraded exam. No acute or subacute infarct. Involutional changes with ventriculomegaly, likely on an ex vacuo basis. Moderate chronic microvascular ischemic disease. -- Appreciate neurology input Obtain EEG Continue IV ertapenem to complete 2-week course Repeat blood cultures negative to date Reorient frequently to minimize delirium Rehab when accepted Plan to complete 2 week course of IV Ertapenem on 03/14/23 (Last dose) Acute metabolic encephalopathy In setting of dementia --CT head:No significant change compared to the prior study. No acute intracranial abnormality. Normal Ammonia level VBG showed no hypercarbia EEG:Abnormal awake/drowsy EEG with persistent generalized slowing suggestive of a nonspecific encephalopathy. No epileptiform abnormalities observed. Avoid sedative meds as able Mental status Improved Diarrhea Likely secondary to IV antibiotics Stool for C. difficile negative Imodium as needed Hypocalcemia Continue calcium supplements Normal ionized calcium (3) Dementia with behavioral disturbance: Plan: Dementia with behavioral disturbance Worsening mental status in the last 4 months Appreciate neurology input Reorient frequently to minimize delirium (4) T2DM (type 2 diabetes mellitus): Plan: Continue insulin while hospitalized Monitor BGs (5) HTN (hypertension): Plan: Hypertension Continue lisinopril, metoprolol Resume HCTZ Monitor (6) HLD (hyperlipidemia): Plan: On statin (7) CKD (chronic kidney disease), stage III: Plan: CKD stage III Cr stable Avoid nephrotoxic agents Monitor Elevated troponin likely demand ischema in setting of infection No ACS symptoms Gross hematuria Likely due to UTI Further work up if needed Needs follow up as outpatient DVT Px: Heparin SQ Code Status DNR/DNI (2) UTI (urinary tract infection): (3) Dementia with behavioral disturbance: (4) T2DM (type 2 diabetes mellitus): (5) HTN (hypertension): (6) HLD (hyperlipidemia): (7) CKD (chronic kidney disease), stage III: Total Time Total Time Spent Total Time Spent (In Minutes): 54 minutes Discharge Plan Discharge Items Patient Disposition: Transfer [facility] Reason For Visit: UTI Discharge Diagnosis: Sepsis Acute Metabolic Encephalopathy in setting of baseline Dementia ESBL UTI E.coli Bacteremia Dementia Activity: Per Instructions section Exercise/Sports: Gradually increase as tolerated Non-emergency contact: Primary Care Provider Call non-emergency contact if: you have any medication questions, your symptoms worsen, your pain is concerning for you and you have a fever Follow-up/Referrals: Lyubov Green MD [Primary Care Provider] - Dietitian Info: Minced and Moist Diet: Carb Consistent or DM2 and Vegetarian (Lacto-Ovo) Diet Texture: Easy to Chew Addtl Attending Provider Instructions: Follow-up with your primary care physician Dr. Lyubov Green in 1 week upon discharge from rehab facility Follow-up with your neurologist/geriatric psychiatry in 2 to 4 weeks upon discharge as recommended --- Complete the IV antibiotic course:IV Ertapenem 1gm daily for 4 more days :::Last dose on 03/14/23 Seek immediate medical attention if your symptoms reoccur or worsen Please take all medications as instructed on discharge list below. Please call if you have any questions or problems. You can reach a [facility] hospitalist on duty at [facility] 24 hours a day by calling [phone] Pending Studies at Discharge: No Stand-Alone Forms: My [facility] Skilled Items Patient informed of condition?: Yes DNR: Yes Discharge Level of Care: Skilled Communicable Disease: No Discharge Prognosis: Stable Lines: US Guided Peripheral IV Urinary Catheter: No Medications and DC Order Prescriptions: New metoprolol succinate 50 mg Tablet Extended Release 24 Hr 50 mg PO BID Qty: 60 0RF Advanced Probiotic 625 mg (10 billion cell) Capsule 2 cap PO DAILY Qty: 10 0RF Continued atorvastatin 20 mg tablet 20 mg PO DAILY glipizide 5 mg tablet extended release 24hr 5 mg PO BID aspirin [Aspir-81] 81 mg Tablet,Delayed Release (Dr/Ec) 81 mg PO DAILY ferrous sulfate [iron] 325 mg (65 mg iron) Tablet 325 mg PO DAILY hydrochlorothiazide 12.5 mg capsule 12.5 mg PO DAILY sertraline 25 mg tablet 50 mg PO DAILY lisinopril 40 mg Tablet 40 mg PO DAILY calcium citrate-vitamin D3 [Citracal plus D] 250 mg-5 mcg (200 unit) Tablet 1 tab PO TID cholecalciferol (vitamin D3) 25 mcg (1,000 unit) Tablet 25 mcg PO DAILY empagliflozin 10 mg Tablet 10 mg PO DAILY Discontinued metoprolol succinate 25 mg Tablet Extended Release 24 Hr 25 mg PO DAILY Discharge Orders: Discharge Order (Routine); Ordered 03/11/23 Ordered By: Clinton Cantrell Admission Data Admit Date/Time: 02/28/23 13:55 Attending Provider: Clinton Cantrell Admit Provider: Erica Barfield Primary Care Provider: Lyubov Green Other Providers: Erica Barfield ; Janae Whitehead at [place] ; [facility] ; [place] ; Miguel A Rowan ; Jimmy Acosta ; Bushra Joshi ; Faizan Fernandez ; Bushra Reyna ; Terry Evans ; Braulio Keenan ; Elisa Reed ; Faizan Whitfield ; Salvador Hurley
== END 2023-03-11 11:32 | DRG 871 ==
LOC: 2E 11:44 → ED 11:44 → SUATTDRO 14:26 → 2E 16:31 → SUATTDRO 02-28 13:55 → 2N 03-03 15:38